=== PATIENT | male | born 1955 | race Caucasian/White ===

== ENCOUNTER 2020-11-09 09:17 | Outpatient (REF) | payer MEDICAID, SELFPAY ==
[2020-11-09 09:52] LABS: MANUAL DIFF FLAG NO
[2020-11-09 09:59] LABS: Basophils Percent Auto 0.4 % (0-2); Eosinophils Absolute Auto 0.1 X10*3/uL (0.0-0.4); Eosinophils Percent Auto 1.5 % (0-4); Hemoglobin 15.8 g/dl (14.0-18.0); Imm Gran Abs Auto 0.03 X10*3/uL (0.00-0.03); Imm Gran Pct Auto 0.3 % (0.0-0.4); Lymphocytes Absolute Auto 2.5 X10*3/uL (1.2-4.9); Lymphocytes Percent Auto 27.2 % (20-40); Mean Corpuscular HGB Conc 33.6 g/dl (31.0-36.0); Mean Corpuscular Hemoglobin 31.1 pg (27.0-33.0); Mean Corpuscular Volume 92.5 fL (80-98); Mean Platelet Volume 8.8 fL (9.4-12.4); Monocytes Absolute Auto 0.7 X10*3/uL (0.1-1.2); Monocytes Percent Auto 7.6 % (2-11); Neutrophils Absolute Auto 5.8 X10*3/uL (2.0-8.3); Platelet Count 313 X10*3/uL (160-400); Red Blood Count 5.08 X10*6/uL (4.60-5.80); Red Cell Distribution Width 12.8 % (11.0-16.0); White Blood Count 9.2 X10*3/uL (4.8-10.8)
[2020-11-09 10:24] LABS: Alanine Aminotransferase 35 U/L (0-40); Albumin Level 4.5 g/dL (3.5-5.0); Alkaline Phosphatase 129 U/L (39-117); Anion Gap 12 (12-20); Aspartate Amino Transferase 24 U/L (5-37); Bilirubin Total 0.9 mg/dL (0.0-1.0); Blood Urea Nitrogen 16 mg/dL (9-16); Calcium 9.9 mg/dL (8.4-10.2); Carbon Dioxide 27 mmol/L (22-29); Chloride 106 mmol/L (96-108); Estimated Glomerular Filt Rate 56; Glucose Fasting 100 mg/dL (60-99); Potassium 4.7 mmol/L (3.3-5.1); Sodium 140 mmol/L (135-145); Total Protein 7.2 g/dL (6.5-8.0)
[2020-11-09 10:37] LABS: Free T4 (Free Thyroxine) 0.99 ng/dL (0.71-1.85); Thyroid Stimulating Hormone 0.64 uIU/mL (0.32-4.0)
== END 2020-11-09 09:18 | disposition home or self-care (01) ==
LOC: HO.LAB 09:17
PROVIDERS: PCP Internal Medicine Medical Oncology; Visit Provider Internal Medicine Medical Oncology
DX: Z00.00 Encounter for general adult medical examination without abnormal findings (principal); E78.5 Hyperlipidemia, unspecified; I10 Essential (primary) hypertension
CPT/HCPCS: 36415; 80053; 84439; 84443; 85025

== ENCOUNTER → 2021-07-04 10:21 | Outpatient (BNVA) | payer MEDICARE, SELFPAY | PROVIDERS: PCP Internal Medicine Medical Oncology; Visit Provider Internal Medicine | DX: R07.2 Precordial pain (principal); I10 Essential (primary) hypertension; E78.5 Hyperlipidemia, unspecified | CPT/HCPCS: 99202 ==

== ENCOUNTER → 2021-07-24 08:58 | Outpatient (REF) | payer MEDICARE, SELFPAY ==
--- NOTE | 2021-07-24 09:10 | CA_ITS ---
Acquisition Time: 2021-07-24 10:31:22 Total Exercise Time: 00:06:06 Test Indications: HTN, CP Medications: SEE CHART Protocol: ERIK Max HR: 136 BPM 87% of Pred: 155 BPM Max BP: 154/068 mmHG Max Work Load: 7.1 METS Exercise stress test with exercise 6 min 6 sec of Erik protocol, without anginal symptoms, with isolated PVC, with normotensive response to exercise, without EKG changes meeting criteria for ischemia, there are J point depression with upsloping ST segments. At baseline there is borderline ST depression and T wave inversion lead III that improves with exercise and returns in recovery. Test reviewed with Dr Iniguez Referred By: Simón Madison Overread By: MARINA LAINEZ
== END ==
LOC: HO.CARD 08:58
PROVIDERS: Visit Provider Internal Medicine
DX: R07.2 Precordial pain (principal)
CPT/HCPCS: 93017

== ENCOUNTER → 2021-08-28 10:00 | Outpatient (REF) | payer MEDICARE, MEDICAID, SELFPAY ==
--- NOTE | 2021-08-28 10:04 | CA_ITS ---
Transthoracic Echocardiogram Patient (Last, First, Middle): Hoang Pereira M Gender: Male Date of : 1955 Age: 65 Procedure Date: 08/28/2021 Procedure Type: Transthoracic Echocardiogram Location: OP Height: 157.48 cm Weight: 67.13 kg BSA: 1.68 m2 Heart Rate: bpm BP: 130 / 82 mmHg Hyperion Analyst: RANDAL Referring MD: Simón Madison MD Mild Disabilities Teacher: Dwain Iniguez MD Symptoms: R07.2 - Precordial pain Study Quality: Good ECG Rhythm: Sinus Conclusions: - essentially normal study with mild fibrocalcific aortic valve barger Findings Left Ventricle Normal left ventricular size, thickness, and systolic function. The visually estimated ejection fraction is between 65-70%. Spectral Doppler is indicative of a normal filling pattern. Measured peak global longitudinal endocardial strain is -19.8% within normal limits Right Ventricle Normal right ventricular cavity size and systolic function. Atria Both atria are normal in size. There is no evidence of interatrial shunt. Aortic Valve There is mild calcification of the aortic valve. There is no aortic valve stenosis. There is no aortic valve regurgitation. Mitral Valve Normal mitral valve structure and function. There is trace mitral valve regurgitation. There is no mitral valve stenosis. Pulmonic Valve The pulmonic valve was not well visualized. Tricuspid Valve Likely normal tricuspid valve structure and function. There is trace tricuspid valve regurgitation. The right ventricular systolic pressure is normal. The right ventricular systolic pressure is 25 mmHg. Normal right atrial pressure. There is no evidence of pulmonary hypertension. Great Vessels All visible segments of the aorta are normal in size. The pulmonary artery was not well visualized. Venous The inferior vena cava is normal in size and collapses greater than 50% with inspiration. Pericardium/Pleural There is no evidence of pericardial effusion. Prior Study Comparison No prior study available for comparison. Measurements 2D Linear Measurements IVSd: 0.98 0.6-0.9/0.6-1.0 cm LVIDd: 4.38 3.9-5.3/4.2-5.9 cm LVIDd Index: 2.61 2.4-3.2/2.2-3.1 cm/m2 LVIDs: 2.03 2.0-3.6 cm LVPWd: 0.90 0.7-1.1 cm LA Diam: 3.10 2.7-3.8/3.0-4.0 cm LAIDs Index: 1.85 1.5-2.3 cm/m2 LV Mass: 167.74 67-162/88-224 g LV Mass Index: 99.84 43-95/49-115 g/m2 LVOT Diam: 1.90 3.0+(-)1.3 cm 2D Systolic Function EF 4C: 69.90 >55% EF 2C: 70.10 >55% EF BiP: 70.00 >55% Mitral Valve MV Pk E: 0.89 MV PK A: 0.78 MV Decel Time: 175.00 E/A: 1.20 E'Lateral: 10.30 E'Medial: 8.05 E/E' Med: 11.10 E/E' Lat: 8.70 PHT: 51.00 MVA PHT: 4.31 Decel Pleas[place]: 5.12 Aortic Valve AoV Pk Dom: 1.99 AoV Mn Dom: 1.36 AoV VTI: 0.41 AoV Pk Grad: 16.00 Aov Mn Grad: 9.00 ERVIN Cont.VTI: 2.37 LVOT LVOT Pk Dom: 1.67 LVOT Mn Dom: 1.10 LVOT VTI: 0.34 LVOT Pk Grad: 11.00 LVOT Mn Grad: 6.00 LVOT Diam: 1.90 LVOT Area: 2.84 Diastolic Function MV Pk E: 0.89 MV Pk A: 0.78 E/A: 1.20 E'Medial: 8.05 E/E' Med: 11.10 E' Laterial: 10.30 E/E' Lat: 8.70 Right Ventricle TAPSE (mm): 2.54 TVS' Dom: 13.80 Tricuspid Valve TR Pk Dom: 2.33 TR Pk Grad: 22.00 RA Press: 3.00 RVSP: 25.00 Great Vessels Aorta Sinus of Valsalva: 2.84 2.0-3.[address] Ridge: 2.56 1.7-3.4 cm Ao Asc: 2.90 2.1-3.4 cm Ao Arch: 2.60 Updated in Other Vendor System with Status of Final Dwain Iniguez MD electronically signed on 08/28/2021 1:47:28 PM with status of Final
== END ==
LOC: HO.CARD 10:00
PROVIDERS: Visit Provider Internal Medicine
DX: R07.2 Precordial pain (principal)
CPT/HCPCS: 93306

== ENCOUNTER → 2021-10-10 14:22 | Outpatient (BNVA) | payer MEDICARE, MEDICAID, SELFPAY | PROVIDERS: PCP Internal Medicine Medical Oncology; Referring Provider Nurse Practitioner Family; Visit Provider Nurse Practitioner Family | DX: R07.2 Precordial pain (principal); I10 Essential (primary) hypertension; E78.5 Hyperlipidemia, unspecified | CPT/HCPCS: 99212 ==

== ENCOUNTER → 2022-01-03 14:43 | Outpatient (BNVA) | payer MEDICARE, MEDICAID, SELFPAY | PROVIDERS: PCP Nurse Practitioner Family; Visit Provider Urology | DX: R33.9 Retention of urine, unspecified (principal); N32.0 Bladder-neck obstruction | CPT/HCPCS: 51798; 99202 ==

== ENCOUNTER 2022-06-24 10:08 | Outpatient (REF) | payer OTHER, SELFPAY ==
[2022-06-24 12:44] LABS: PSA,Total (Free>4and<10) 0.99 ng/mL (0.00-4.00)
== END 2022-06-24 10:09 | disposition home or self-care (01) ==
LOC: HO.LAB 10:08
PROVIDERS: PCP Internal Medicine Geriatric Medicine; Visit Provider Urology
DX: Z12.5 Encounter for screening for malignant neoplasm of prostate (principal); N13.8 Other obstructive and reflux uropathy; N40.1 Benign prostatic hyperplasia with lower urinary tract symptoms; R33.9 Retention of urine, unspecified
CPT/HCPCS: 36415; 84153

== ENCOUNTER → 2022-07-01 10:46 | Outpatient (BNVA) | payer OTHER, MEDICAID, SELFPAY | PROVIDERS: PCP Internal Medicine Geriatric Medicine; Visit Provider Urology | DX: N40.1 Benign prostatic hyperplasia with lower urinary tract symptoms (principal); N13.8 Other obstructive and reflux uropathy; R33.8 Other retention of urine; Z79.899 Other long term (current) drug therapy | CPT/HCPCS: 51798; 99212 ==

== ENCOUNTER 2023-02-02 17:58 | Emergency (ER) | payer OTHER, MEDICAID, SELFPAY ==
--- NOTE | 2023-02-02 18:00 | ECG_ITS ---
Test Reason : HYPERTENSION Blood Pressure : / mmHG Vent. Rate : 056 BPM Atrial Rate : 056 BPM P-R Int : 142 ms QRS Dur : 086 ms QT Int : 412 ms P-R-T Axes : 063 014 042 degrees QTc Int : 397 ms Sinus bradycardia Otherwise normal ECG No previous ECGs available Referred By: Bradly Smith Electronically Signed By:ALISSON AVILES
[2023-02-02 18:05] VITALS: BP 148/79; PULSE 55; RESP 14; TEMP 36.7; O2SAT 97; BMI 25.9
--- NOTE | 2023-02-02 18:05 | ED_ITS ---
HPI - General Adult General Chief complaint: Chest Pain Stated complaint: abnormal ekg/ labs? sent from [facility]. high bp Time Seen by Provider: 02/02/23 20:31 Source: patient and software team leader Mode of arrival: ambulatory History of Present Illness HPI narrative: 67-year-old male who comes in for evaluation headaches and when he has these he notices that he has high blood pressure. Patient states that he used to be on medication for high blood pressure but once he started the medication for his BPH his blood pressure was becoming too low and the blood pressure medication was removed. Patient denies any shortness of breath or chest pain but did have some palpitations this evening. He otherwise denies any GI or symptoms. Related Data Home Medications Medication Instructions Recorded Confirmed atorvastatin 40 mg tablet 40 mg PO DAILY 07/04/21 07/04/21 cetirizine 10 mg tablet 10 mg PO DAILY 07/04/21 07/04/21 gabapentin 300 mg capsule 300 mg PO TID 07/04/21 07/04/21 hydrocortisone 2.5 % topical cream appl topical BID 07/04/21 07/04/21 omeprazole 20 mg capsule,delayed 20 mg PO BID 07/04/21 07/04/21 release amlodipine 10 mg tablet 10 mg PO DAILY 10/10/21 10/10/21 aspirin 325 mg tablet 325 mg PO BID 10/10/21 10/10/21 celecoxib 200 mg capsule 200 mg PO DAILY 10/10/21 10/10/21 oxycodone 5 mg tablet mg PO 10/10/21 10/10/21 amlodipine 5 mg tablet 5 mg PO DAILY 01/03/22 meloxicam 15 mg tablet 15 mg PO DAILY 01/03/22 venlafaxine 37.5 mg 37.5 mg PO DAILY 01/03/22 capsule,extended release 24 hr fluoxetine 20 mg capsule 20 mg PO DAILY 07/01/22 gabapentin 600 mg tablet 600 mg PO TID 07/01/22 lorazepam 0.5 mg tablet 0.5 mg PO BID PRN 07/01/22 trazodone 50 mg tablet 50 mg PO BEDTIME PRN 07/01/22 Previous Rx's Medication Instructions Recorded finasteride 5 mg tablet 5 mg PO DAILY 90 days #90 tabs 07/01/22 terazosin 10 mg capsule 10 mg PO BEDTIME 90 days #90 caps 07/01/22 Allergies Allergy/AdvReac Type Severity Reaction Status Date / Time Penicillins Allergy Intermediate rash Verified 07/01/22 10:54 Review of Systems Review of Systems: Pertinent positives and negatives as stated in [facility] Past Medical History Source: nursing notes reviewed Medical History Essential hypertension Other and unspecified hyperlipidemia Surgical History History of shoulder surgery Family History Family History Father No problems noted. Mother CVD (cardiovascular disease) Social History Social History Household Members: Family Housing: House Alcohol intake: never Patient Tobacco Use Status: Never used Tobacco Advance Directives: No Advance Directives Information Provided: Yes Physical Exam ED Vital Signs: Vital Signs - 24 hr 02/02/23 18:05 02/02/23 20:20 Temperature 98.0 F 97.7 F Pulse Rate 55 60 Respiratory Rate 14 18 Blood Pressure 148/79 H 152/87 H Pulse Oximetry 97 97 Oxygen Delivery Method Room Air Room Air BMI result Body Mass Index 25.9 VITAL SIGNS: Reviewed. GENERAL: Well developed, well nourished, in no acute distress. HEAD: Normocephalic/atraumatic EYES: PERRLA, EOMI LUNGS: Normal breath sounds. No adventitious sounds or accessory muscle use. SpO2<97> CARDIOVASCULAR: Regular rate and rhythm without noted murmurs, no JVD or lower extremity edema. ABDOMEN: Soft, non-tender, non-distended with bowel sounds. MUSCULOSKELETAL: No tenderness, deformities, or effusions noted on gross i nspection. EXTREMITIES: No cyanosis, clubbing or edema. SKIN: Inspection of the skin reveals no rashes NEUROLOGIC: Alert and oriented x 4. Strength and sensation to light touch were grossly intact x 4. Course Course Course Narrative: 67 year old male presents from Dr. Mitchell's office after an abnormal EKG. He is also having substernal nonradiating chest pain going on for weeks. He has been having hypertension and headaches going on for months. Patient reports that the blood pressure fluctuates with the onset of the headaches. Plan- EKG Medical Decision Making Medical Decision Making MDM Narrative: 67-year-old male with history and clinical presentation, DDX: Hypertension, patient is otherwise nonfocal and no symptoms to suggest neurologic dysfunction, patient is afebrile and I doubt any underlying infection, no shortness of breath or chest pain, no GI or symptoms. I reviewed all investigations and hematologic indices are grossly within normal limits, there is no leukocytosis or left shift and no anemia or thrombocytopenia. Chemistry indices are grossly within normal limits there is no electrolyte or liver enzyme abnormalities other than a chronically stable alkaline phosphatase, there is no BRANDON and troponin is undetectable without acute EKG changes in BMP is within normal limits. My interpretation is that patient is experiencing some episodes of high blood pressure that should be further evaluated by his primary care provider. There is no evidence of end-organ damage and I do suspect that the episode he described of low blood pressure may be secondary to his BPH medication. I did instruct the patient to begin taking his prostate medication at night prior to b ed so that if it does cause low blood pressure he will be less likely to experience any symptoms. Differential Diagnosis Differential Diagnoses: The differential diagnosis associated with the presentation includes Please see the discussion above Admission/Observation Consideration of admission/observation: Escalation of care including admission/observation considered Please see the discussion above Lab Data [facility] Lab Attestation statement: I reviewed the patient's lab results. Please see the discussion above 02/02/23 18:55 02/02/23 18:55 Labs: Lab Results 02/02/23 02/02/23 02/02/23 Range/Units 18:55 18:55 18:55 WBC 8.3 (4.8-10.8) X10*3/uL RBC 5.05 (4.60-5.80) X10*6/uL Hgb 15.7 (14.0-18.0) g/dl Hct 47.2 (42.0-52.0) % MCV 93.5 (80.0-98.0) fL MCH 31.1 (27.0-33.0) pg MCHC 33.3 (31.0-36.0) g/dl RDW 13.2 (11.0-16.0) % Plt Count 261 (160-400) X10*3/uL MPV 9.6 (9.4-12.4) fL Immature Gran % (Auto) 0.2 (0.0-0.4) % Neut % (Auto) 64.8 (45-73) % Lymph % (Auto) 23.7 (20-40) % [place] % (Auto) 7.4 (2-11) % Eos % (Auto) 3.3 (0-4) % Baso % (Auto) 0.6 (0-2) % Lymph # (Auto) 2.0 (1.2-4.9) X10*3/uL [place] # (Auto) 0.6 (0.1-1.2) X10*3/uL Eos # (Auto) 0.3 (0.0-0.4) X10*3/uL Baso # (Auto) 0.1 (0.0-0.2) X10*3/uL Abs Immat Gran (auto) 0.02 (0.00-0.03) X10*3/uL Absolute Neuts (auto) 5.4 (2.0-8.3) x10*3/uL Absolute Nucleated RBC 0.000 (0.0-0.012) X10*3/uL Nucleated RBC % (auto) 0.0 (0.0-0.2) /100WBC Sodium 140 (135-145) mmol/L Potassium 4.6 (3.3-5.1) mmol/L Chloride 107 (96-108) mmol/L Carbon Dioxide 25 (22-29) mmol/L Anion Gap 13 (12-20) BUN 20 H (9-16) mg/dL Creatinine 1.05 (0.5-1.4) mg/dL Estim Creat Clear Calc 54.9 Estimated GFR > 60 Random Glucose 91 (60-115) mg/dL Calcium 9.8 (8.4-10.2) mg/dL Magnesium 2.2 (1.6-2.6) mg/dL Total Bilirubin 0.9 (0.0-1.0) mg/dL AST 20 (5-37) U/L ALT 21 (0-40) U/L Alkaline Phosphatase 142 H (39-117) U/L Troponin I High Sens < 2.7 (<3.5-35.0) ng/L B-Natriuretic Peptide (<100) pg/mL Total Protein 7.6 (6.5-8.0) g/dL Albumin 4.5 (3.5-5.0) g/dL 02/02/23 Range/Units 18:55 WBC (4.8-10.8) X10*3/uL RBC (4.60-5.80) X10*6/uL Hgb (14.0-18.0) g/dl Hct (42.0-52.0) % MCV (80.0-98.0) fL MCH (27.0-33.0) pg MCHC (31.0-36.0) g/dl RDW (11.0-16.0) % Plt Count (160-400) X10*3/uL MPV (9.4-12.4) fL Immature Gran % (Auto) (0.0-0.4) % Neut % (Auto) (45-73) % Lymph % (Auto) (20-40) % [place] % (Auto) (2-11) % Eos % (Auto) (0-4) % Baso % (Auto) (0-2) % Lymph # (Auto) (1.2-4.9) X10*3/uL [place] # (Auto) (0.1-1.2) X10*3/uL Eos # (Auto) (0.0-0.4) X10*3/uL Baso # (Auto) (0.0-0.2) X10*3/uL Abs Immat Gran (auto) (0.00-0.03) X10*3/uL Absolute Neuts (auto) (2.0-8.3) x10*3/uL Absolute Nucleated RBC (0.0-0.012) X10*3/uL Nucleated RBC % (auto) (0.0-0.2) /100WBC Sodium (135-145) mmol/L Potassium (3.3-5.1) mmol/L Chloride (96-108) mmol/L Carbon Dioxide (22-29) mmol/L Anion Gap (12-20) BUN (9-16) mg/dL Creatinine (0.5-1.4) mg/dL Estim Creat Clear Calc Estimated GFR Random Glucose (60-115) mg/dL Calcium (8.4-10.2) mg/dL Magnesium (1.6-2.6) mg/dL Total Bilirubin (0.0-1.0) mg/dL AST (5-37) U/L ALT (0-40) U/L Alkaline Phosphatase (39-117) U/L Troponin I High Sens (<3.5-35.0) ng/L B-Natriuretic Peptide 72 (<100) pg/mL Total Protein (6.5-8.0) g/dL Albumin (3.5-5.0) g/dL Independent Interpretation I performed an independent interpretation of an: EKG Interpretation: Sinus bradycardia, HR -56, no STEMI, IN/QRS/QTC is within normal limits External Record Review External record reviewed: Outpatient record, Prior outpatient labs and Prior ou tpatient radiology Chronic Conditions Patient?s care impacted by: Hypertension Discharge Plan Discharge Clinical Impression: Medication side effect, Headache Patient Disposition: Home, Self-Care Instructions: Adverse Drug Reaction (ED), General Headache (ED) Additional Instructions: 1. Le recomiendo que comience a david eric medicamento para la pr?stata por la noche antes de acostarse; sin embargo, si puede levantarse a mitad de la noche, tenga cuidado y lev?ntese lentamente para no experimentar mareos. 2. Contin?e controlando eric presi?n arterial, t?kyle dos veces al d?a, por la ma?gael antes de comenzar el d?a y luego por la noche antes de acostarse. 3. Patrick un seguimiento con eric m?dico de atenci?n primaria llamando al consultorio a primera hora de la ma?gael para programar victoriano hazel para victoriano reevaluaci?n y un mayor manejo ambulatorio. Regrese a la peter de emergencias si los s?ntomas empeoran. 1. I recommend that you begin taking your prostate medication in the evening prior to going to bed, however if you could up in the middle the night exercise caution and slowly get up so that you do not experience any dizziness. 2. Continue to track your blood pressure is, take them twice a day, in the morning prior to starting your day and then in the evening prior to bed. 3. Please follow-up with your primary care doctor by calling the office 1st thing in the morning to set up an appointment for re-evaluation and further outpatient management. Return to the ER for any worsening symptoms. Prescriptions: No Action amlodipine 10 mg tablet 10 mg PO DAILY celecoxib 200 mg capsule 200 mg PO DAILY aspirin 325 mg tablet 325 mg PO BID oxycodone 5 mg tablet PO atorvastatin 40 mg tablet 40 mg PO DAILY gabapentin 300 mg capsule 300 mg PO TID omeprazole 20 mg capsule,delayed release(DR/EC) 20 mg PO BID hydrocortisone 2.5 % cream topical BID cetirizine 10 mg tablet 10 mg PO DAILY venlafaxine 37.5 mg capsule,extended release 24hr 37.5 mg PO DAILY amlodipine 5 mg tablet 5 mg PO DAILY meloxicam 15 mg tablet 15 mg PO DAILY lorazepam 0.5 mg tablet 0.5 mg PO BID PRN fluoxetine 20 mg capsule 20 mg PO DAILY trazodone 50 mg tablet 50 mg PO BEDTIME PRN gabapentin 600 mg tablet 600 mg PO TID finasteride 5 mg tablet 5 mg PO DAILY 90 Days Qty: 90 3RF terazosin 10 mg capsule 10 mg PO BEDTIME 90 Days Qty: 90 3RF Referrals: [facility] [Primary Care Provider] - Print Language: [place]
[2023-02-02 19:01] LABS: MANUAL DIFF FLAG NO
[2023-02-02 19:19] LABS: Alanine Aminotransferase 21 U/L (0-40); Albumin Level 4.5 g/dL (3.5-5.0); Alkaline Phosphatase 142 U/L (39-117); Anion Gap 13 (12-20); Aspartate Amino Transferase 20 U/L (5-37); Bilirubin Total 0.9 mg/dL (0.0-1.0); Blood Urea Nitrogen 20 mg/dL (9-16); Calcium 9.8 mg/dL (8.4-10.2); Carbon Dioxide 25 mmol/L (22-29); Chloride 107 mmol/L (96-108); Creatinine Clr Calc Pharmacy 54.9; Estimated Glomerular Filt Rate > 60; Glucose Random 91 mg/dL (60-115); Magnesium 2.2 mg/dL (1.6-2.6); Potassium 4.6 mmol/L (3.3-5.1); Sodium 140 mmol/L (135-145); Total Protein 7.6 g/dL (6.5-8.0)
[2023-02-02 19:24] LABS: Basophils Absolute Auto 0.1 X10*3/uL (0.0-0.2); Basophils Percent Auto 0.6 % (0-2); Eosinophils Absolute Auto 0.3 X10*3/uL (0.0-0.4); Eosinophils Percent Auto 3.3 % (0-4); Hematocrit 47.2 % (42.0-52.0); Hemoglobin 15.7 g/dl (14.0-18.0); Imm Gran Abs Auto 0.02 X10*3/uL (0.00-0.03); Imm Gran Pct Auto 0.2 % (0.0-0.4); Lymphocytes Percent Auto 23.7 % (20-40); Mean Corpuscular HGB Conc 33.3 g/dl (31.0-36.0); Mean Corpuscular Hemoglobin 31.1 pg (27.0-33.0); Mean Corpuscular Volume 93.5 fL (80.0-98.0); Mean Platelet Volume 9.6 fL (9.4-12.4); Monocytes Absolute Auto 0.6 X10*3/uL (0.1-1.2); Monocytes Percent Auto 7.4 % (2-11); Neutrophils Absolute Auto 5.4 x10*3/uL (2.0-8.3); Neutrophils Percent Auto 64.8 % (45-73); Platelet Count 261 X10*3/uL (160-400); Red Blood Count 5.05 X10*6/uL (4.60-5.80); Red Cell Distribution Width 13.2 % (11.0-16.0); White Blood Count 8.3 X10*3/uL (4.8-10.8)
[2023-02-02 19:25] LABS: B Type Natriuretic Peptide 72 pg/mL (<100)
[2023-02-02 19:27] LABS: Troponin-I High Sensitivity < 2.7 ng/L (<3.5-35.0)
[2023-02-02 20:20] VITALS: BP 152/87; PULSE 60; RESP 18; TEMP 36.5; O2SAT 97
== END 2023-02-02 23:05 | disposition home or self-care (01) ==
PROVIDERS: Physician Assistant; Emergency Provider Student in an Organized Health Care Education/Training Program
DX: R07.89 Other chest pain (principal); R51.9 Headache, unspecified; R06.02 Shortness of breath; Z79.899 Other long term (current) drug therapy
CPT/HCPCS: 36415; 80053; 83735; 83880; 84484; 85025; 93005; 99283

== ENCOUNTER 2023-02-16 13:38 | Emergency (ER) | payer OTHER, MEDICAID, SELFPAY ==
--- NOTE | ~2023-02-16 | US_ITS ---
EXAMINATION: US ABDOMEN LIMITED CLINICAL INFORMATION: Left inguinal pain. COMPARISON: None available. TECHNIQUE: Real-time imaging of the left inguinal canal FINDINGS: Multiple benign-appearing lymph nodes are seen in the left inguinal area, the largest is 1.6 x 0.5 x 1.4 cm. A hernia is seen at the area of pain indicated by the patient/left inguinal area measuring up to 1.2 cm US/US abdomen limited IMPRESSION: 1. Left inguinal hernia. 2. Benign-appearing lymph nodes in the left inguinal area.
[2023-02-16 14:00] VITALS: BP 118/67; PULSE 58; RESP 18; TEMP 36.9; O2SAT 97; BMI 26.2
--- NOTE | 2023-02-16 14:01 | ED.ABDPAIN ---
HPI - Abdominal Pain General Chief Complaint: Abdominal Pain Stated Complaint: groin pain Time Seen by Provider: 02/16/23 17:30 Source: patient Mode of arrival: ambulatory Limitations: no limitations History of Present Illness HPI narrative: 67-year-old male presents with left groin pain. Pain is moderate. Was more severe yesterday. Radiates the left testicle. Pain is intermittent. He describes as an achy pain. He does have some urinary frequency and urgency and nighttime urination but denies any painful urination. Denies any blood in his urine. Denies any abdominal distension, nausea, vomiting, failure to pass stool or flatus. He has not had any previous abdominal surgeries. He has denied any masses in his groin or scrotal area. Symptoms are not clearly relieved or exacerbated by anything at this time Related Data Home Medications Medication Instructions Recorded Confirmed atorvastatin 40 mg tablet 40 mg PO DAILY 07/04/21 07/04/21 cetirizine 10 mg tablet 10 mg PO DAILY 07/04/21 07/04/21 gabapentin 300 mg capsule 300 mg PO TID 07/04/21 07/04/21 hydrocortisone 2.5 % topical cream appl topical BID 07/04/21 07/04/21 omeprazole 20 mg capsule,delayed 20 mg PO BID 07/04/21 07/04/21 release amlodipine 10 mg tablet 10 mg PO DAILY 10/10/21 10/10/21 aspirin 325 mg tablet 325 mg PO BID 10/10/21 10/10/21 celecoxib 200 mg capsule 200 mg PO DAILY 10/10/21 10/10/21 oxycodone 5 mg tablet mg PO 10/10/21 10/10/21 amlodipine 5 mg tablet 5 mg PO DAILY 01/03/22 meloxicam 15 mg tablet 15 mg PO DAILY 01/03/22 venlafaxine 37.5 mg 37.5 mg PO DAILY 01/03/22 capsule,extended release 24 hr fluoxetine 20 mg capsule 20 mg PO DAILY 07/01/22 gabapentin 600 mg tablet 600 mg PO TID 07/01/22 lorazepam 0.5 mg tablet 0.5 mg PO BID PRN 07/01/22 trazodone 50 mg tablet 50 mg PO BEDTIME PRN 07/01/22 Previous Rx's Medication Instructions Recorded finasteride 5 mg tablet 5 mg PO DAILY 90 days #90 tabs 07/01/22 terazosin 10 mg capsule 10 mg PO BEDTIME 90 days #90 caps 07/01/22 Allergies Allergy/AdvReac Type Severity Reaction Status Date / Time Penicillins Allergy Intermediate rash Verified 07/01/22 10:54 Review of Systems Review of Systems CONSTITUTIONAL: Denies weight loss, fever and chills. HEENT: Denies changes in vision and hearing. RESPIRATORY: Denies SOB and cough. CV: Denies palpitations no CP. GI: Denies abdominal pain, nausea, vomiting and diarrhea. : Denies dysuria and urinary frequency. MSK: + myalgia and joint pain. SKIN: Denies rash and pruritus. NEUROLOGICAL: Denies headache and syncope. PSYCHIATRIC: Denies recent changes in mood. Denies anxiety and depression. All other ROS are negative unless in HPI PMFSH Past Medical History Medical History Essential hypertension Other and unspecified hyperlipidemia Surgical History History of shoulder surgery Family History Family History Father No problems noted. Mother CVD (cardiovascular disease) Social History Social History Household Members: Family Housing: House Alcohol intake: never Patient Tobacco Use Status: Never used Tobacco Advance Directives: No Advance Directives Information Provided: Yes Physical Exam ED Vital Signs: Vital Signs - 24 hr 02/16/23 14:00 02/16/23 16:43 Temperature 98.4 F 97.7 F Pulse Rate 58 52 Respiratory Rate 18 15 Blood Pressure 118/67 150/81 H Pulse Oximetry 97 99 Oxygen Delivery Method Room Air Room Air BMI result Body Mass Index 26.2 GEN: Well developed, no acute distress, alert, oriented HEENT: Normocephalic, atraumatic, normal external ears, nose appears normal, no oropharyngeal edema or exudates Eyes: Normal to appearance Neck: Supple, no lymphadenopathy Respiratory: Talks in complete sentences, no respiratory distress, clear to auscultation bilaterally Cardiovascular: Regular rate and rhythm, no murmurs rubs or gallops Abdomen: Soft, nontender, nondistended, no guarding, no rebound Back: No CVA tenderness Extremities: No clubbing cyanosis or edema Neurologic: No focal neurologic deficits, cranial nerves 2-12 intact, strength is 5/5 bilaterally Skin: No rash Course Course Course Narrative: RME - 67 yo Marshallese speaking male presents to the ER for evaluation of HTN, HLD, urinary retention w/ bladder outlet obstruction who presents to the ER for evaluation of suprapubic pain and bilateral testicular pain. Urinary stream is slow and he has having increased frequency. Plan: labs, UA, PVR, U/S assess for hernia Reevaluation(s) Reevaluation #1: Patient has left inguinal hernia. There is no evidence UTI. Most likely his urinary symptoms are prostatic. Will refer patient to general surgery. Discussed instructions of incarceration, strangulation and bowel obstruction Time: 18:12 Medical Decision Making Medical Decision Making [facility] Narrative: Patient presents with left groin pain. Differential diagnosis includes hernia, torsion, UTI, strain, sprain. Plan will be to obtain an ultrasound to rule out the differential diagnoses. Patient is comfortable this time. There is no evidence of bowel obstruction, pyelonephritis. Will obtain a urinalysis to rule UTI as well. Differential Diagnosis Differential Diagnoses: The differential diagnosis associated with the presentation includes (See above) Admission/Observation Consideration of admission/observation: Escalation of care including admission/observation considered Lab Data [facility] Lab Attestation statement: I reviewed the patient's lab results. 02/16/23 14:10 02/16/23 14:10 Labs: Lab Results 02/16/23 02/16/23 Range/Units 14:10 16:28 WBC 7.8 (4.8-10.8) X10*3/uL RBC 4.93 (4.60-5.80) X10*6/uL Hgb 15.3 (14.0-18.0) g/dl Hct 45.0 (42.0-52.0) % MCV 91.3 (80.0-98.0) fL MCH 31.0 (27.0-33.0) pg MCHC 34.0 (31.0-36.0) g/dl RDW 13.1 (11.0-16.0) % Plt Count 243 (160-400) X10*3/uL MPV 9.0 L (9.4-12.4) fL Immature Gran % (Auto) 0.3 (0.0-0.4) % Neut % (Auto) 65.0 (45-73) % Lymph % (Auto) 23.1 (20-40) % [place] % (Auto) 8.7 (2-11) % Eos % (Auto) 2.4 (0-4) % Baso % (Auto) 0.5 (0-2) % Lymph # (Auto) 1.8 (1.2-4.9) X10*3/uL [place] # (Auto) 0.7 (0.1-1.2) X10*3/uL Eos # (Auto) 0.2 (0.0-0.4) X10*3/uL Baso # (Auto) 0.0 (0.0-0.2) X10*3/uL Abs Immat Gran (auto) 0.02 (0.00-0.03) X10*3/uL Absolute Neuts (auto) 5.1 (2.0-8.3) x10*3/uL Absolute Nucleated RBC 0.000 (0.0-0.012) X10*3/uL Nucleated RBC % (auto) 0.0 (0.0-0.2) /100WBC Sodium 140 (135-145) mmol/L Potassium 4.0 (3.3-5.1) mmol/L Chloride 108 (96-108) mmol/L Carbon Dioxide 26 (22-29) mmol/L Anion Gap 10 L (12-20) BUN 19 H (9-16) mg/dL Creatinine 1.47 H (0.5-1.4) mg/dL Estim Creat Clear Calc 39.2 Estimated GFR 48 Random Glucose 92 (60-115) mg/dL Calcium 9.9 (8.4-10.2) mg/dL Magnesium 2.2 (1.6-2.6) mg/dL Total Bilirubin 1.0 (0.0-1.0) mg/dL Direct Bilirubin 0.3 (0.0-0.5) mg/dL AST 20 (5-37) U/L ALT 16 (0-40) U/L Alkaline Phosphatase 127 H (39-117) U/L Total Protein 7.1 (6.5-8.0) g/dL Albumin 4.2 (3.5-5.0) g/dL Urine Color Yellow Urine Appearance Clear Urine pH 6.0 (5.0-9.0) Ur Specific [place] 1.010 (1.005-1.025) Urine Protein Negative (Neg-Trace) mg/dL Urine Glucose (UA) Negative (Negative) mg/dL Urine Ketones Negative (Negative) mg/dL Urine Blood Negative (Negative) Urine Nitrite Negative (Negative) Ur Leukocyte Esterase Negative (Negative) Independent Interpretation I performed an independent interpretation of an: Ultrasound (Hernia) Radiology Impression Discussion of test interpretation with radiology: I have reviewed the radiologist's reading. Radiologist Impression: US/US abdomen limited IMPRESSION: 1. Left inguinal hernia. 2. Benign-appearing lymph nodes in the left inguinal area. Dictated By: Yvonne Corral MD Signed By: <Electronically signed by Yvonne Corral MD in OV> 02/16/23 1613 Prescription Management I considered prescription management with: Pain Medication Chronic Conditions Patient?s care impacted by: Hypertension Discharge Plan Discharge Clinical Impression: Left inguinal hernia Patient Disposition: Home, Self-Care Instructions: Inguinal Hernia (ED) Prescriptions: No Action amlodipine 10 mg tablet 10 mg PO DAILY celecoxib 200 mg capsule 200 mg PO DAILY aspirin 325 mg tablet 325 mg PO BID oxycodone 5 mg tablet PO atorvastatin 40 mg tablet 40 mg PO DAILY gabapentin 300 mg capsule 300 mg PO TID omeprazole 20 mg capsule,delayed release(DR/EC) 20 mg PO BID hydrocortisone 2.5 % cream topical BID cetirizine 10 mg tablet 10 mg PO DAILY venlafaxine 37.5 mg capsule,extended release 24hr 37.5 mg PO DAILY amlodipine 5 mg tablet 5 mg PO DAILY meloxicam 15 mg tablet 15 mg PO DAILY lorazepam 0.5 mg tablet 0.5 mg PO BID PRN fluoxetine 20 mg capsule 20 mg PO DAILY trazodone 50 mg tablet 50 mg PO BEDTIME PRN gabapentin 600 mg tablet 600 mg PO TID finasteride 5 mg tablet 5 mg PO DAILY 90 Days Qty: 90 3RF terazosin 10 mg capsule 10 mg PO BEDTIME 90 Days Qty: 90 3RF Referrals: Domenic Ogden MD [Physician] - Print Language: Marshallese
[2023-02-16 14:13] LABS: MANUAL DIFF FLAG NO
[2023-02-16 14:19] LABS: Basophils Percent Auto 0.5 % (0-2); Eosinophils Absolute Auto 0.2 X10*3/uL (0.0-0.4); Eosinophils Percent Auto 2.4 % (0-4); Hemoglobin 15.3 g/dl (14.0-18.0); Imm Gran Abs Auto 0.02 X10*3/uL (0.00-0.03); Imm Gran Pct Auto 0.3 % (0.0-0.4); Lymphocytes Absolute Auto 1.8 X10*3/uL (1.2-4.9); Lymphocytes Percent Auto 23.1 % (20-40); Mean Corpuscular Volume 91.3 fL (80.0-98.0); Monocytes Absolute Auto 0.7 X10*3/uL (0.1-1.2); Monocytes Percent Auto 8.7 % (2-11); Neutrophils Absolute Auto 5.1 x10*3/uL (2.0-8.3); Platelet Count 243 X10*3/uL (160-400); Red Blood Count 4.93 X10*6/uL (4.60-5.80); Red Cell Distribution Width 13.1 % (11.0-16.0); White Blood Count 7.8 X10*3/uL (4.8-10.8)
[2023-02-16 14:29] LABS: Alanine Aminotransferase 16 U/L (0-40); Albumin Level 4.2 g/dL (3.5-5.0); Alkaline Phosphatase 127 U/L (39-117); Anion Gap 10 (12-20); Aspartate Amino Transferase 20 U/L (5-37); Bilirubin Direct 0.3 mg/dL (0.0-0.5); Blood Urea Nitrogen 19 mg/dL (9-16); Calcium 9.9 mg/dL (8.4-10.2); Carbon Dioxide 26 mmol/L (22-29); Chloride 108 mmol/L (96-108); Creatinine Clr Calc Pharmacy 39.2; Estimated Glomerular Filt Rate 48; Glucose Random 92 mg/dL (60-115); Magnesium 2.2 mg/dL (1.6-2.6); Sodium 140 mmol/L (135-145); Total Protein 7.1 g/dL (6.5-8.0)
[2023-02-16 16:43] VITALS: BP 150/81; PULSE 52; RESP 15; TEMP 36.5; O2SAT 99
[2023-02-16 16:43] LABS: Appearance Urine Clear; Color Urine Yellow; Glucose Urine UA Negative (Negative); Leukocyte Esterase Urine Negative (Negative); Nitrite Urine Negative (Negative); Urine Blood Negative (Negative); Urine Ketones Negative (Negative); Urine Protein Negative (Neg-Trace)
--- NOTE | 2023-02-16 16:43 | MHC.EDTECH ---
THIS PCT JUST ASSUMED CARE OF PT ,VITALS SIGN TAKEN ,PT RESTING QUIETLY IN BED .
[2023-02-16 18:00] VITALS: BP 136/84; PULSE 54; RESP 16; TEMP 36.8; O2SAT 97
== END 2023-02-16 18:51 | disposition home or self-care (01) ==
PROVIDERS: Physician Assistant; Emergency Provider Emergency Medicine
DX: K40.90 Unilateral inguinal hernia, without obstruction or gangrene, not specified as recurrent (principal); R10.32 Left lower quadrant pain; N50.812 Left testicular pain; R33.9 Retention of urine, unspecified; Z79.899 Other long term (current) drug therapy
CPT/HCPCS: 36415; 51798; 76705; 80048; 80076; 81003; 83735; 85025; 99283; 99284

== ENCOUNTER 2023-02-23 10:30 | Outpatient (AMB) | payer OTHER, MEDICAID, SELFPAY ==
[2023-02-23 10:33] VITALS: BP 122/68; PULSE 63; BMI 25.5
--- NOTE | 2023-02-23 10:33 | A.OFFVIS_ITS ---
Intake Vital Signs 02/23/23 10:33 Height 5 ft 3 in Weight 144 lb BMI 25.5 BP 122/68 Blood Pressure Location Rt brachial Position Sitting Pulse 63 Intake Visit Reasons: Lt inguinal hernia-ER Intake Note: Patient here f/u from ER visit on 02-16-23. C/o lower lt lower abd pain that started about 3 wks. Currently taking ibuprofen and tylenol. Was told per abd US has LIH. Alternative Dispute Resolution Mediator Required: No Accompanied by: Spouse Allergies Penicillins Allergy (Intermediate, Verified 02/23/23 10:39) rash latex Allergy (Mild, Verified 02/23/23 10:39) rash Medication List - Last Reconciled 02/23/23 by Broderick Rainey MD atorvastatin 40 mg PO DAILY celecoxib 200 mg PO DAILY cetirizine 10 mg PO DAILY finasteride 5 mg PO DAILY 90 days fluoxetine 20 mg PO DAILY gabapentin 600 mg PO TID hydrocortisone 2.5% appl topical BID lorazepam 0.5 mg PO BID PRN meloxicam 15 mg PO DAILY omeprazole 20 mg PO BID oxycodone mg PO terazosin 10 mg PO BEDTIME 90 days trazodone 50 mg PO BEDTIME PRN HPI HPI Comments History of Present Illness Details Patient presents with his for evaluation of left groin pain. His several weeks time of left groin pain and swelling. Because of progression symptoms, presents here for further evaluation. Patient otherwise tolerates a diet as regular bowel habits. He does not to overly strenuous activities at this point his life. 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 Mother CVD (cardiovascular disease) Social History Household Members: Family Housing: House Alcohol intake: never Patient Tobacco Use Status: Never used Tobacco Physical Exam Vital Signs: Last Vital Signs Pulse 63 02/23/23 10:33 BP 122/68 02/23/23 10:33 BMI result Body Mass Index 25.5 Chest Other: Chest breath sounds bilaterally, HS 1 2 GI Other: Patient was examined standing with Valsalva. Abdomen soft benign. Right groin negative. Genitalia within normal limits. Small but symptomatic left inguinal hernia. Assessment & Plan Assessment & Plan (1) Inguinal hernia: Code(s): K40.90 - Unilateral inguinal hernia, without obstruction or gangrene, not specified as recurrent Plan Risks, benefits, alternatives of hernia repair open technique with mesh placement reviewed with the patient and included but not limited to bleeding, infection, recurrence, numbness, pain, scarring the patient wishes to proceed. All questions were answered. Arrangements were made for this. Coding Level of Care Code New Pt Level 5 (07215) Diagnoses Inguinal hernia K40.90
== END 2023-02-23 10:53 | disposition home or self-care (01) ==
PROVIDERS: Visit Provider Surgery
DX: K40.90 Unilateral inguinal hernia, without obstruction or gangrene, not specified as recurrent (principal)
CPT/HCPCS: 99214

== ENCOUNTER → 2023-02-23 10:30 | Outpatient (BNVA) | payer OTHER, MEDICAID, SELFPAY | PROVIDERS: Visit Provider Surgery ==

== ENCOUNTER 2023-03-26 06:02 | Day surgery (SDC) | payer OTHER, MEDICAID, SELFPAY ==
[2023-03-23 15:48] VITALS: BMI 25.5
[2023-03-23 16:48] VITALS: BMI 25.9
--- NOTE | 2023-03-25 09:00 | P.CONAN_ITS ---
HPI - Anesthesia Eval Consult details Narrative: 67yo M for Left Open Hernia Repair Inguinal PMFSH Active Problems Active Problems: All Active Problems (Updated 03/24/23 @ 10:14 by Lauren Zarate RN) Inguinal hernia (Acute) Urinary retention with incomplete bladder emptying (Acute) Bladder outlet obstruction (Acute) Precordial chest pain (Acute) Other and unspecified hyperlipidemia (Acute) Essential hypertension (Acute) Past Medical History Medical History (Updated 03/24/23 @ 10:14 by Lauren Zarate RN) Depression Anxiety History of Helicobacter pylori infection BPPV (benign paroxysmal positional vertigo) Pre-diabetes BPH (benign prostatic hyperplasia) Asthma Elevated cholesterol 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 Mother CVD (cardiovascular disease) Surgical History Surgical History (Updated 03/23/23 @ 16:51 by Lauren Zarate RN) History of total left knee replacement History of back surgery (~03/13/21) History of shoulder surgery Social History Social History (Updated 03/23/23 @ 16:48 by Lauren Zarate RN) Household Members: Spouse and Family Housing: House Are you a primary pulmonary care nurse to a significant other at home: No Do you presently have visiting nurse or other home services: No Alcohol intake: never Patient Tobacco Use Status: Never used Tobacco Use of substances other than those prescribed or required for medical reasons: No Have you been hit, kicked, punched, or otherwise hurt by someone within the past year? If so, by whom?: No Are you DNR?: No Advance Directives: No Advance Directives Information Provided: Yes Advance Directives on File: No Recently lost weight without trying: No Nutrition Risks: No Nutritional Risk Meds Allergies Allergy/AdvReac Type Severity Reaction Status Date / Time Penicillins Allergy Intermediate rash Verified 03/23/23 16:47 latex Allergy Mild rash Verified 03/23/23 16:47 Home Medications Medication Instructions Recorded Confirmed Last Taken Type atorvastatin 40 mg tablet 40 mg PO DAILY 07/04/21 03/23/23 Unknown History cetirizine 10 mg tablet 10 mg PO DAILY 07/04/21 07/04/21 Unknown History hydrocortisone 2.5 % topical cream appl topical BID 07/04/21 07/04/21 Unknown History omeprazole 20 mg capsule,delayed 20 mg PO BID PRN Gastric Reflux 07/04/21 03/23/23 Unknown History release celecoxib 200 mg capsule 200 mg PO DAILY 10/10/21 10/10/21 Unknown History oxycodone 5 mg tablet mg PO 10/10/21 10/10/21 Unknown History meloxicam 15 mg tablet 15 mg PO DAILY 01/03/22 Unknown History fluoxetine 20 mg capsule 20 mg PO DAILY 07/01/22 03/23/23 Unknown History gabapentin 600 mg tablet 600 mg PO TID 07/01/22 03/23/23 Unknown History lorazepam 0.5 mg tablet 0.5 mg PO BID PRN Anxiety 07/01/22 03/23/23 Unknown History trazodone 50 mg tablet 50 mg PO BEDTIME PRN Insomnia 07/01/22 03/23/23 Unknown History Exam Exam Date and Time: March 25, 2023 0900 Height,Weight and Vital Signs: Height 5 ft 3 in Weight 66.224 kg Pertinent Lab Results Pertinent Lab Results: Laboratory Tests 02/16/23 14:10 WBC 7.8 Hgb 15.3 Hct 45.0 Plt Count 243 Sodium 140 Potassium 4.0 Chloride 108 Carbon Dioxide 26 BUN 19 H Creatinine 1.47 H Narrative Narrative: EKG 01/2023 Vent. Rate : 056 BPM Atrial Rate : 056 BPM P-R Int : 142 ms QRS Dur : 086 ms QT Int : 412 ms P-R-T Axes : 063 014 042 degrees QTc Int : 397 ms Sinus bradycardia Otherwise normal ECG No previous ECGs available ECHO 2021 Conclusions: - essentially normal study with mild fibrocalcific aortic valve Exercise Stress 2021 Protocol: ERIK Max HR: 136 BPM 87% of Pred: 155 BPM Max BP: 154/068 mmHG Max Work Load: 7.1 METS Exercise stress test with exercise 6 min 6 sec of Erik protocol, without anginal symptoms, with isolated PVC, with normotensive response to exercise, without EKG changes meeting criteria for ischemia, there are J point depression with upsloping ST segments. At baseline there is borderline ST depression and T wave inversion lead III that improves with exercise and returns in recovery. Test reviewed with Dr Iniguez Assessment and Plan Assessment Anesthesia Assessment: Chart Reviewed
--- NOTE | 2023-03-25 19:19 | MHC.SHP ---
Pre-Procedural Eval Section A Date of Service: 03/25/23 The patient is an INPATIENT: No Changes since office visit: No Cold of Flu in the past 2 weeks, No New Medical Problems, No Changes in Medication and No Patient answered all questions The History & Physical has been completed within 30 days and I have reviewed it.: Yes Section B Chief Complaint: Unilateral inguinal hernia, without obstruction or Allergies: Allergies Allergy/AdvReac Type Severity Reaction Status Date / Time Penicillins Allergy Intermediate rash Verified 03/23/23 16:47 latex Allergy Mild rash Verified 03/23/23 16:47 Plan I have reviewed the history and physical and performed a pertinent physical examination on my patient. No changes have occurred unless specified. Time Spent With Patient Time: Total time managing care of this patient today ____ minutes.
[2023-03-26 06:37] VITALS: BP 144/84; PULSE 65; RESP 16; TEMP 36.8; O2SAT 96
[2023-03-26] MEDS: Lactated Ringers 1,000 ML 100 ML IVCONT (06:43)
--- NOTE | 2023-03-26 07:21 | P.CONAN_ITS ---
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 Mother CVD (cardiovascular disease) Surgical History Surgical History History of total left knee replacement History of back surgery (~03/13/21) History of shoulder surgery Social History Social History Household Members: Spouse and Family Housing: House Are you a primary pediatric critical care nurse to a significant other at home: No Do you presently have visiting nurse or other home services: No Alcohol intake: never Patient Tobacco Use Status: Never used Tobacco Use of substances other than those prescribed or required for medical reasons: No Have you been hit, kicked, punched, or otherwise hurt by someone within the past year? If so, by whom?: No Are you DNR?: No Advance Directives: No Advance Directives Information Provided: Yes Advance Directives on File: No Recently lost weight without trying: No Nutrition Risks: No Nutritional Risk Meds Allergies Allergy/AdvReac Type Severity Reaction Status Date / Time Penicillins Allergy Intermediate rash Verified 03/23/23 16:47 latex Allergy Mild rash Verified 03/23/23 16:47 Active Medications: Current Medications Albuterol Sulfate (Albuterol Sulfate (0.083%) 2.5 Mg/3 Ml Vial.Neb) 2.5 mg INHALE ONCE PRN PRN Reason: Shortness of Breath/Wheezing Lactated Ringer's (Lr) 1,000 mls @ 100 mls/hr IVCONT .Q10H MICHAEL Last Admin: 03/26/23 06:43 Dose: 100 mls/hr Home Medications Medication Instructions Recorded Confirmed Last Taken Type atorvastatin 40 mg tablet 40 mg PO DAILY 07/04/21 03/23/23 Unknown History cetirizine 10 mg tablet 10 mg PO DAILY 07/04/21 07/04/21 Unknown History hydrocortisone 2.5 % topical cream appl topical BID 07/04/21 07/04/21 Unknown History omeprazole 20 mg capsule,delayed 20 mg PO BID PRN Gastric Reflux 07/04/21 03/23/23 Unknown History release celecoxib 200 mg capsule 200 mg PO DAILY 10/10/21 10/10/21 Unknown History oxycodone 5 mg tablet mg PO 10/10/21 10/10/21 Unknown History meloxicam 15 mg tablet 15 mg PO DAILY 01/03/22 Unknown History fluoxetine 20 mg capsule 20 mg PO DAILY 07/01/22 03/23/23 Unknown History gabapentin 600 mg tablet 600 mg PO TID 07/01/22 03/23/23 Unknown History lorazepam 0.5 mg tablet 0.5 mg PO BID PRN Anxiety 07/01/22 03/23/23 Unknown History trazodone 50 mg tablet 50 mg PO BEDTIME PRN Insomnia 07/01/22 03/23/23 Unknown History Exam Exam Date and Time: March 26, 2023720 Height,Weight and Vital Signs: Height 5 ft 3 in Weight 66.224 kg Last Vital Signs Temp 98.2 F 03/26/23 06:37 Pulse 65 03/26/23 06:37 Resp 16 03/26/23 06:37 BP 144/84 H 03/26/23 06:37 Pulse Ox 96 03/26/23 06:37 O2 Del Method Room Air 03/26/23 06:37 Airway Mallampati Class: II TM Dist: >3cm Neck ROM: Full Heart: RRR Lungs: CTA Assessment and Plan Assessment Anesthesia Assessment: Anesthesia Plan Discussed Final Anesthetic Review ASA Class: II Final Preanesthetic Review: Meds/Allgs Chart Reviewed, Consent Obtained/Reviewed and Anes Risks/Benef Reviewed Patient Risk: Low Procedure Risk: Low Anesthetic Plan Anesthetic Plan: MAC: Disposition: Standard PACU
[2023-03-26 08:20] VITALS: BP 112/57; PULSE 84; RESP 17; TEMP 36.7; O2SAT 98
[2023-03-26 08:25] VITALS: BP 106/60; PULSE 78; RESP 18; O2SAT 96
[2023-03-26 08:30] VITALS: BP 104/51; PULSE 82; RESP 18; O2SAT 95
--- NOTE | 2023-03-26 08:31 | P.OP_ITS ---
Operative Note Operative Note Date of Service: 03/26/23 Narrative: Preoperative diagnosis: [] symptomatic left inguinal hernia Postop diagnosis: [] same Procedure [] open left inguinal herniorrhaphy with our mesh Surgeon: [] [employer] Client Services Coordinator: [] Pako Type of Anesthesia: [] general Indication for surgery: [] moderately sized direct left inguinal hernia. No indirect hernia Findings: [] The patient was brought to the operating room, placed on the operative room table in the supine position, and after an adequate level of general anesthesia was induced, the left groin was prepped and draped in usual sterile small left para inguinal incision, this was carried down through skin, subcutaneous tissue, and Boone's fascia. External oblique fibers were opened their direction with care to isolate and preserve the ilioinguinal nerve throughout the procedure. The spermatic cord was identified and retracted from the field. Exploration of the cord demonstrated no indirect hernia. A moderately-sized directing all hernia was found and reduced. A Bard plug was placed in the direct defect, and sutured inferiorly to the inguinal ligament, and superiorly to transversalis fascia using interrupted 0 Ethibond suture. At completion, mesh was in good position with no tension no gaps. The wound Was irrigated, sleep hemostasis, and closed in the following manner; external oblique fascia was closed using running2. 0 Vicryl suture. Boone's fascia was reclosed using an up to 3-0 Vicryl sutures. Interrupted inverted deep dermal 3-0 Vicryl sutures followed by running subcuticular Four 0 Vicryl suture. Steri-Strips and sterile dressings were applied. WoundWas infiltrated with 0.5% Marcaine / 1% lidocaine a completion. Ipsilateral testicle was sent to school at completion. Sponge, needle, instrument counts reported be correct. Patient tolerated the p rocedure well and emerged anesthesia in stable condition. EBL minimal
[2023-03-26 08:35] VITALS: BP 106/61; PULSE 79; RESP 20; TEMP 36.2; O2SAT 94
[2023-03-26 08:50] VITALS: BP 107/62; PULSE 66; RESP 16; TEMP 36.1; O2SAT 95
--- NOTE | 2023-03-26 09:21 | HO.POSTANES ---
Post Anesthesia Evaluation Post Anesthesia Evaluation Date of Service: 03/26/23 Vital Signs: Vital Signs Temp Pulse Resp BP Pulse Ox O2 Del Method 03/26/23 08:50 97 F 66 16 107/62 95 Room Air 03/26/23 08:35 97.2 F 79 20 106/61 94 Room Air 03/26/23 08:30 82 18 104/51 L 95 Room Air 03/26/23 08:25 78 18 106/60 96 Room Air 03/26/23 08:20 98.1 F 84 17 112/57 L 98 Room Air 03/26/23 06:37 98.2 F 65 16 144/84 H 96 Room Air Anesthesia: General LMA and General Mental Status: Awake Pain Control: Satisfactory Nausea/Vomiting: None Hydration: Adequate Anesthesia-Related Issues: No Anes. Related Issues
== END 2023-03-26 09:56 | disposition home or self-care (01) ==
PROVIDERS: PCP Internal Medicine Geriatric Medicine; Visit Provider Surgery
PROC: (CPT 49505; principal; 2023-03-26 07:30)
DX: K40.90 Unilateral inguinal hernia, without obstruction or gangrene, not specified as recurrent (principal); I10 Essential (primary) hypertension; R73.03 Prediabetes; E78.00 Pure hypercholesterolemia, unspecified; J45.909 Unspecified asthma, uncomplicated; N40.0 Benign prostatic hyperplasia without lower urinary tract symptoms; Z79.899 Other long term (current) drug therapy; Z88.0 Allergy status to penicillin; Z91.040 Latex allergy status; Z96.652 Presence of left artificial knee joint
CPT/HCPCS: 49505; C1781; J1100; J2250; J2405; J3010

== ENCOUNTER → 2023-03-26 06:02 | Outpatient (BNV) | payer OTHER, MEDICAID, SELFPAY | PROVIDERS: PCP Internal Medicine Geriatric Medicine; Visit Provider Surgery | DX: K40.90 Unilateral inguinal hernia, without obstruction or gangrene, not specified as recurrent (principal) | CPT/HCPCS: 49505 ==

== ENCOUNTER 2023-04-06 10:12 | Outpatient (REF) | payer OTHER, MEDICAID, SELFPAY ==
[2023-04-06 11:57] LABS: MANUAL DIFF FLAG NO
[2023-04-06 12:06] LABS: Basophils Absolute Auto 0.1 X10*3/uL (0.0-0.2); Basophils Percent Auto 0.6 % (0-2); Eosinophils Absolute Auto 0.3 X10*3/uL (0.0-0.4); Eosinophils Percent Auto 3.3 % (0-4); Hematocrit 48.4 % (42.0-52.0); Imm Gran Abs Auto 0.03 X10*3/uL (0.00-0.03); Imm Gran Pct Auto 0.3 % (0.0-0.4); Lymphocytes Absolute Auto 2.1 X10*3/uL (1.2-4.9); Lymphocytes Percent Auto 24.7 % (20-40); Mean Corpuscular HGB Conc 33.1 g/dl (31.0-36.0); Mean Corpuscular Hemoglobin 30.5 pg (27.0-33.0); Mean Corpuscular Volume 92.4 fL (80.0-98.0); Mean Platelet Volume 9.3 fL (9.4-12.4); Monocytes Absolute Auto 0.7 X10*3/uL (0.1-1.2); Monocytes Percent Auto 8.1 % (2-11); Neutrophils Absolute Auto 5.5 x10*3/uL (2.0-8.3); Platelet Count 285 X10*3/uL (160-400); Red Blood Count 5.24 X10*6/uL (4.60-5.80); Red Cell Distribution Width 12.8 % (11.0-16.0); White Blood Count 8.7 X10*3/uL (4.8-10.8)
[2023-04-06 12:16] LABS: Estimated Average Glucose 105 mg/dL; Hemoglobin A1c % 5.3 % (<6.0)
[2023-04-06 12:47] LABS: Creatinine Urine 245.39 mg/dL; Microalbum/Creatinine Ratio Ur 4.8 ug/mg cr (<30)
[2023-04-06 13:02] LABS: Alanine Aminotransferase 83 U/L (0-40); Albumin Level 4.4 g/dL (3.5-5.0); Alkaline Phosphatase 169 U/L (39-117); Anion Gap 13 (12-20); Aspartate Amino Transferase 33 U/L (5-37); Bilirubin Total 0.8 mg/dL (0.0-1.0); Blood Urea Nitrogen 16 mg/dL (9-16); Calcium 10.1 mg/dL (8.4-10.2); Carbon Dioxide 24 mmol/L (22-29); Chloride 108 mmol/L (96-108); Cholesterol 133 mg/dL (<200); Estimated Glomerular Filt Rate > 60; Glucose Random 89 mg/dL (60-115); HDL Cholesterol 49 mg/dL (>40); LDL Cholesterol Calculated 67 mg/dL (<100); Potassium 4.2 mmol/L (3.3-5.1); Sodium 141 mmol/L (135-145); TSH reflex Free T4 1.28 uIU/mL (0.32-4.0); Total Protein 7.7 g/dL (6.5-8.0); Triglycerides 87 mg/dL (<150)
[2023-04-06 13:09] LABS: HBS Num1 0.51 mIU/mL (0-7.99); HIV AB/AG Nonreactive (Nonreactive); HIV Num 1 0.07 S/CO (0.00-0.99); Hepatitis B Core Antibody Nonreactive (Nonreactive); Syphilis Screen Nonreactive (Nonreactive); ~HepC Num1 0.05 S/CO (0.00-0.79); ~Hepatitis B Surface Antibody NONREACTIVE (Nonreactive); ~Hepatitis C Antibody Nonreactive (Nonreactive)
[2023-04-06 13:16] LABS: Folate 13.9 ng/mL (> or = 4.0); Vitamin B12 1358 pg/mL (200-900)
[2023-04-06 14:04] LABS: CT PCR NOT DETECTED (Not Detect.); NG PCR NOT DETECTED (Not Detect.)
[2023-04-07 16:04] LABS: Hepatitis B Viral DNA Qn - cp NOT DETECTED Log IU/mL (NOT DETECTED); Hepatitis B Viral DNA Qn-IU/mL NOT DETECTED (NOT DETECTED)
[2023-04-10 11:54] LABS: VITAMIN D (1,25 OH) D3 49 pg/mL; Vit D (1,25-Dihydroxy) Total 49 pg/mL (18-72); Vitamin D (1,25 OH) D2 <8 pg/mL
== END 2023-04-06 10:13 | disposition home or self-care (01) ==
LOC: HO.HHCLNP 10:12
PROVIDERS: Visit Provider Student in an Organized Health Care Education/Training Program
DX: Z00.00 Encounter for general adult medical examination without abnormal findings (principal); K40.90 Unilateral inguinal hernia, without obstruction or gangrene, not specified as recurrent; R73.03 Prediabetes; E78.00 Pure hypercholesterolemia, unspecified; I10 Essential (primary) hypertension; Z20.2 Contact with and (suspected) exposure to infections with a predominantly sexual mode of transmission; Z13.21 Encounter for screening for nutritional disorder
CPT/HCPCS: 0353U; 80053; 80061; 82043; 82570; 82607; 82652; 82746; 83036; 84443; 85025; 86704; 86706; 86780; 86803; 87389; 87517; 99212

== ENCOUNTER 2023-04-06 14:11 | Outpatient (AMB) | payer OTHER, MEDICAID, SELFPAY ==
[2023-04-06 14:20] VITALS: BP 140/74; PULSE 65
--- NOTE | 2023-04-06 14:20 | MHC.OFFVIS ---
Intake Vital Signs 04/06/23 14:20 Weight 149 lb BP 140/74 H Blood Pressure Location Rt brachial Position Sitting Pulse 65 Intake Visit Reasons: S/P LIH w/mesh Intake Note: Patient here s/p LIH w/mesh. Reports burning sensation that spreads from Lt lower abd to groin. Incisions healing well. Denies bleeding or oozing. Recently started on meclizine unsure mg. Pug Mill Operator Required: No Accompanied by: Spouse Allergies Penicillins Allergy (Intermediate, Verified 04/06/23 14:22) rash latex Allergy (Mild, Verified 04/06/23 14:22) rash HPI HPI Comments History of Present Illness Details Patient presents his . Aside from incisional discomfort which is improving, is doing well. He has time diet. Having normal bowel habits. He is increasing his activity level. 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 Mother CVD (cardiovascular disease) Social History Household Members: Spouse and Family Housing: House Are you a primary resident care technician to a significant other at home: No Do you presently have visiting nurse or other home services: No Alcohol intake: never Patient Tobacco Use Status: Never used Tobacco Physical Exam Vital Signs: Last Vital Signs Pulse 65 04/06/23 14:20 BP 140/74 H 04/06/23 14:20 GI Other: Abdomen soft. Incision clean dry and intact healing well. Assessment & Plan Assessment & Plan (1) Inguinal hernia: Onset Date: 03/26/23 Comment: Dr. Broderick Rainey LIH w/mesh Code(s): K40.90 - Unilateral inguinal hernia, without obstruction or gangrene, not specified as recurrent Plan Patient has been given local instructions, and will follow-up p.r.n.. Coding Level of Care Code Global (54950) Diagnoses Inguinal hernia K40.90
== END 2023-04-06 14:27 | disposition home or self-care (01) ==
PROVIDERS: PCP Internal Medicine Geriatric Medicine; Visit Provider Surgery
DX: K40.90 Unilateral inguinal hernia, without obstruction or gangrene, not specified as recurrent (principal)
CPT/HCPCS: 99024

== ENCOUNTER 2023-04-13 08:39 | Outpatient (REF) | payer OTHER, MEDICAID, SELFPAY ==
[2023-04-13 11:31] LABS: MANUAL DIFF FLAG NO
[2023-04-13 11:39] LABS: Basophils Absolute Auto 0.1 X10*3/uL (0.0-0.2); Basophils Percent Auto 0.7 % (0-2); Eosinophils Absolute Auto 0.3 X10*3/uL (0.0-0.4); Eosinophils Percent Auto 4.2 % (0-4); Hematocrit 48.5 % (42.0-52.0); Hemoglobin 15.8 g/dl (14.0-18.0); Imm Gran Abs Auto 0.02 X10*3/uL (0.00-0.03); Imm Gran Pct Auto 0.3 % (0.0-0.4); Lymphocytes Absolute Auto 2.3 X10*3/uL (1.2-4.9); Lymphocytes Percent Auto 33.4 % (20-40); Mean Corpuscular HGB Conc 32.6 g/dl (31.0-36.0); Mean Corpuscular Hemoglobin 30.1 pg (27.0-33.0); Mean Corpuscular Volume 92.4 fL (80.0-98.0); Mean Platelet Volume 9.6 fL (9.4-12.4); Monocytes Absolute Auto 0.6 X10*3/uL (0.1-1.2); Monocytes Percent Auto 9.2 % (2-11); Neutrophils Absolute Auto 3.6 x10*3/uL (2.0-8.3); Neutrophils Percent Auto 52.2 % (45-73); Platelet Count 294 X10*3/uL (160-400); Red Blood Count 5.25 X10*6/uL (4.60-5.80); Red Cell Distribution Width 12.8 % (11.0-16.0)
[2023-04-13 12:07] LABS: Alanine Aminotransferase 38 U/L (0-40); Albumin Level 4.4 g/dL (3.5-5.0); Alkaline Phosphatase 164 U/L (39-117); Anion Gap 11 (12-20); Aspartate Amino Transferase 21 U/L (5-37); Blood Urea Nitrogen 15 mg/dL (9-16); Calcium 9.6 mg/dL (8.4-10.2); Carbon Dioxide 25 mmol/L (22-29); Chloride 108 mmol/L (96-108); Estimated Glomerular Filt Rate > 60; Glucose Random 104 mg/dL (60-115); Potassium 4.3 mmol/L (3.3-5.1); Sodium 140 mmol/L (135-145); Total Protein 7.4 g/dL (6.5-8.0)
[2023-04-13 12:23] LABS: Creatinine Urine 85.34 mg/dL; Microalbumin Urine < 5.0 mg/L
[2023-04-13 15:07] LABS: Gamma Glutamyl Transpeptidase 48 U/L (11-51)
[2023-04-14 06:17] LABS: HIV AB/AG Nonreactive (Nonreactive); HIV Num 1 0.08 S/CO (0.00-0.99); Hepatitis B Surface Antigen Negative (Negative)
== END 2023-04-13 08:40 | disposition home or self-care (01) ==
LOC: HO.HHCL 08:39
PROVIDERS: Visit Provider Student in an Organized Health Care Education/Training Program
DX: Z00.00 Encounter for general adult medical examination without abnormal findings (principal); Z11.4 Encounter for screening for human immunodeficiency virus [HIV]; R94.5 Abnormal results of liver function studies; R74.01 Elevation of levels of liver transaminase levels; K29.70 Gastritis, unspecified, without bleeding
CPT/HCPCS: 36415; 80053; 82043; 82570; 82977; 84075; 85025; 87340; 87389

== ENCOUNTER 2023-04-20 19:49 | Outpatient (REF) | payer OTHER, MEDICAID, SELFPAY ==
[2023-04-23 10:17] LABS: H Pylori Breath Test Negative (Negative)
== END 2023-04-20 19:50 | disposition home or self-care (01) ==
LOC: HO.HHCLNP 19:49
PROVIDERS: Visit Provider Student in an Organized Health Care Education/Training Program
DX: K29.70 Gastritis, unspecified, without bleeding (principal)
CPT/HCPCS: 83013

== ENCOUNTER → 2023-06-17 09:48 | Outpatient (REF) | payer OTHER, MEDICAID, SELFPAY ==
--- NOTE | ~2023-06-17 | NM_ITS ---
EXAMINATION: NM BONE SCAN OF THE WHOLE BODY CLINICAL INFORMATION: Elevated alkaline phosphatase. COMPARISON: MRI of the cervical spine done on 05/25/2020. Chest radiograph done on 08/24/2018. TECHNIQUE: Multiple gamma scintillation camera images of the whole body were performed 3 hours following the intravenous administration of 23.0 mCi Tc-99m MDP. The radiotracer was injected through left antecubital superficial vein without complications. FINDINGS: There is generalized increased tracer avidity identified throughout the entire skeleton associated with periarticular increased tracer avidity and mild/and visualization of the kidneys. The findings are consistent with SuperScan . In the head, no discrete focal abnormality. In the thoracic cage and upper extremities, no discrete focal abnormality. In the spine, linear diffuse increased tracer avidity at L5. In the pelvis, no focal lesion. In the lower extremities, postsurgical changes at left knee. Focal increased tracer avidity at medial right knee likely represent posttraumatic and/or arthritic changes. No other definite bony abnormalities are noted. The urinary bladder and faint visualization of both kidneys are noted. NM/NM bone scan whole body IMPRESSION: 1. Abnormal appearance of the bone scan showing features most consistent with SuperScan . The appearance is nonspecific, consistent with metabolic bone disease including hyperparathyroidism, osteomalacia, renal osteodystrophy as well as Paget's disease. Radiographic correlation as well as biochemical/correlation with lab values as appropriate is recommended. 2. Specific note is made of diffuse linear increased tracer avidity at L5 which may represent superimposed focal pathologic lesion. Radiographic correlation is recommended.
== END ==
LOC: HO.NUCMED 09:48
PROVIDERS: PCP Internal Medicine Geriatric Medicine; Visit Provider Student in an Organized Health Care Education/Training Program
DX: R74.8 Abnormal levels of other serum enzymes (principal)
CPT/HCPCS: 78306; A9503

== ENCOUNTER 2023-07-02 14:54 | Outpatient (AMB) | payer OTHER, MEDICAID, SELFPAY ==
--- NOTE | 2023-07-02 15:06 | A.OFFVIS_ITS ---
Intake Intake Visit Reasons: 1Y PVR(set) Intake Note: Patient presents today for a yearly follow up and PVR Meds- Finasteride, Tamsulosin, Terazosin Allergies to Antibiotic- Penicillin Blood Thinner- None Post Void Residual: 32 Chemistry Faculty Member Required: Yes Accompanied by: Self / Same As Patient Allergies Penicillins Allergy (Intermediate, Verified 07/02/23 15:21) rash latex Allergy (Mild, Verified 07/02/23 15:21) rash Medication List - Last Reconciled 07/02/23 by Jens Abdullahi MD atorvastatin 40 mg PO DAILY celecoxib 200 mg PO DAILY cetirizine 10 mg PO DAILY finasteride 5 mg PO DAILY 90 days fluoxetine 20 mg PO DAILY gabapentin 600 mg PO TID hydrocodone-acetaminophen 5-325 mg 1 tab PO Q4-6H PRN hydrocortisone 2.5% appl topical BID lorazepam 0.5 mg PO BID PRN meloxicam 15 mg PO DAILY omeprazole 20 mg PO BID PRN oxycodone mg PO terazosin 10 mg PO BEDTIME 90 days trazodone 50 mg PO BEDTIME PRN HPI HPI Comments History of Present Illness Details Hoang is a pleasant male. He is a patient of Dr. Ford. He seen for the following urologic conditions - lower urinary tract symptoms Chinese translation provided in office by qualified medical staff director PVR today 30 cc Effective bladder emptying Minimal nocturia Good stream Try stopping terazosin Understands may be symptomatic within 3-4 days Would restart if that is the case Refill finasteride 12 month follow-up Lower urinary tract symptoms Progressive weakness of stream Knee replacement in September 2021 with urinary retention Current medications include finasteride and terazosin 10 mg PSA 06/30 1.0 PFSH Medical History Depression Anxiety History of Helicobacter pylori infection BPPV (benign paroxysmal positional vertigo) Pre-diabetes BPH (benign prostatic hyperplasia) Asthma Elevated cholesterol 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 Mother CVD (cardiovascular disease) Social History Household Members: Spouse and Family Housing: House Are you a primary customer care consultant to a significant other at home: No Do you presently have visiting nurse or other home services: No Alcohol intake: never Patient Tobacco Use Status: Never used Tobacco Review of Systems Const Denies chills and Denies fever(s) Card Reports no additional complaints and Denies syncope Resp Denies cough GI Denies abdominal pain and Denies heartburn Reports as per HPI and Denies change in libido Neuro Denies syncope Psych Denies change in libido Endo Denies change in libido Physical Exam Const General: cooperative, healthy appearing, comfortable and no acute distress Orientation/consciousness: patient oriented x3 HEENT Face and sinus: Yes normal facial exam Mouth: moist mucous membranes Neck Neck: Yes normal visual inspection, Yes full ROM and Yes trachea midline Chest Chest palpation & inspection: normal inspection of the chest Resp Effort & Inspection: normal respiratory effort, able to speak in complete sentences and no respiratory distress GI Inspection: Yes normal to inspection Back/Spine/Pelvis Cervical Spine: normal cervical lordosis Thoracic/Lumbar Spine: thoracic and lumbar spine normal to inspection Skin General skin exam: no rashes or lesions noted Neuro General: patient oriented x3, gait normal, tone normal and moves all extremities Extrem General: Yes normal to inspection and Yes capillary refill normal Office Procedures Post Void Residual Post Residual Void Post Void Residual (PVR): 32 [id number]-[id number] Void Residual by ultrasound Assessment & Plan Assessment & Plan (1) Urinary retention with incomplete bladder emptying: Code(s): R33.9 - Retention of urine, unspecified (2) Bladder outlet obstruction: Code(s): N32.0 - Bladder-neck obstruction Plan Twelve month follow-up PSA and PVR Orders: Orders AMB Post Void Residual by ultrasound Today R33.9 - Retention of urine, unspecified Prostate Specific Antigen 364 Days N32.0 - Bladder-neck obstruction Patient Instructions: Imaging studies, laboratory and physical exam results were discussed and reviewed in detail. No major barriers to patient understanding were identified. An opportunity to ask questions regarding the treatment plan was provided. All questions were answered. The patient expressed understanding and agreement with the above treatment plan. The patient is aware they should contact our office by phone for worsening of their current condition or the appearance of new urologic symptoms. Compliance is encouraged with any medications and followup testing that is ordered. It is a privilege to participate in the urologic care of your patient. If you have any questions or concerns regarding treatment for the above conditions, or other urologic issues, please do not hesitate to contact me. The office telephone contact is [phone]. This note is constructed using voice recognition software. While every effort milligan s been made to ensure accuracy facility operations manager errors may have been included. Yours sincerely, Dr Jens Abdullahi MD, [facility] - Urology Providers of Expert, Compassionate Care for the Genitourinary System Coding Level of Care Code Est Pt Level 4 (99239) Diagnoses Urinary retention with incomplete bladder emptying R33.9 Bladder outlet obstruction N32.0 CPT Codes Post Residual Void - PVR CPT Code: 89014-Pntg Void Residual by ultrasound ([id number])
== END 2023-07-02 15:50 | disposition home or self-care (01) ==
PROVIDERS: Visit Provider Urology
DX: R33.9 Retention of urine, unspecified (principal); N32.0 Bladder-neck obstruction
CPT/HCPCS: 99214

== ENCOUNTER → 2023-07-02 14:54 | Outpatient (BNVA) | payer OTHER, MEDICAID, SELFPAY | PROVIDERS: Visit Provider Urology | DX: R33.9 Retention of urine, unspecified (principal); N32.0 Bladder-neck obstruction | CPT/HCPCS: 51798; 99212 ==

== ENCOUNTER 2023-07-07 12:04 | Outpatient (REF) | payer OTHER, MEDICAID, SELFPAY ==
--- NOTE | ~2023-07-07 | XR_ITS ---
EXAMINATION: XR LUMBOSACRAL SPINE CLINICAL INFORMATION: Abnormal signal within L5 on the prior bone scan. COMPARISON: Nuclear medicine bone scan dated 06/17/2023. TECHNIQUE: 3 views of the lumbosacral spine. FINDINGS: Posterior stabilization and intervertebral disc hardware at L4-L5. No hardware fracture. No significant perihardware lucency to suggest loosening or infection. Normal vertebral body alignment. The lumbar lordosis is maintained. No loss of vertebral body or intervertebral disc height. No concerning lytic or blastic osseous lesion. No abnormal soft tissue calcification. XR/XR lumbar spine 2-3V IMPRESSION: Posterior stabilization and intervertebral disc hardware at L4-L5 without evidence of hardware complication.
== END 2023-07-07 12:05 | disposition home or self-care (01) ==
LOC: HO.HHCX 12:04
PROVIDERS: Visit Provider Student in an Organized Health Care Education/Training Program
DX: R74.8 Abnormal levels of other serum enzymes (principal); R94.8 Abnormal results of function studies of other organs and systems
CPT/HCPCS: 72100

== ENCOUNTER 2023-08-18 09:09 | Emergency (ER) | payer OTHER, MEDICAID, SELFPAY ==
[2023-08-18 09:30] VITALS: BP 118/72; PULSE 74; RESP 16; TEMP 36.6; O2SAT 97; BMI 26.1
--- NOTE | 2023-08-18 10:24 | ED.GENADULT ---
HPI - General Adult General Chief complaint: Skin/Abscess/Foreign Body Stated complaint: Rash, itchiness Time Seen by Provider: 08/18/23 09:58 Source: patient Mode of arrival: ambulatory Limitations: no limitations History of Present Illness HPI narrative: 67-year-old male history of hypertension, bladder outlet obstruction, presenting to the emergency department with complaints of hives throughout entire body ongoing since Thursday not improving despite taking Benadryl. Patient reports the rash/hives are very itchy. He is scheduled to see an bounty hunter later this week. He denies any new exposures. Denies chest pain, shortness of breath, changes in voice, trouble controlling secretions, cough, wheezing, nausea, vomiting, abdominal pain, headache, vision changes, dizziness and weakness. Related Data Home Medications Medication Instructions Recorded Confirmed atorvastatin 40 mg tablet 40 mg PO DAILY 07/04/21 07/02/23 cetirizine 10 mg tablet 10 mg PO DAILY 07/04/21 07/02/23 hydrocortisone 2.5 % topical cream appl topical BID 07/04/21 07/02/23 omeprazole 20 mg capsule,delayed 20 mg PO BID PRN Gastric Reflux 07/04/21 07/02/23 release celecoxib 200 mg capsule 200 mg PO DAILY 10/10/21 07/02/23 oxycodone 5 mg tablet mg PO 10/10/21 07/02/23 meloxicam 15 mg tablet 15 mg PO DAILY 01/03/22 07/02/23 fluoxetine 20 mg capsule 20 mg PO DAILY 07/01/22 07/02/23 gabapentin 600 mg tablet 600 mg PO TID 07/01/22 07/02/23 lorazepam 0.5 mg tablet 0.5 mg PO BID PRN Anxiety 07/01/22 07/02/23 trazodone 50 mg tablet 50 mg PO BEDTIME PRN Insomnia 07/01/22 07/02/23 Previous Rx's Medication Instructions Recorded hydrocodone 5 mg-acetaminophen 325 1 tab PO Q4-6H PRN pain #30 tabs 03/26/23 mg tablet finasteride 5 mg tablet 5 mg PO DAILY 90 days #90 tabs 07/02/23 terazosin 10 mg capsule 10 mg PO BEDTIME 90 days #90 caps 07/30/23 diphenhydramine HCl 25 mg capsule 25 mg PO TID PRN allergic reaction 03/12/24 (Benadryl) #20 caps epinephrine 0.3 mg/0.3 mL 0.3 mg (0.3 mL) IM Q4H PRN 08/18/23 injection, auto-injector (EpiPen anaphylaxis #2 ea 2-Luther) prednisone 20 mg tablet 40 mg (2 x 20 mg) PO DAILY 5 days 08/18/23 #10 tabs Allergies Allergy/AdvReac Type Severity Reaction Status Date / Time Penicillins Allergy Intermediate rash Verified 07/02/23 15:21 latex Allergy Mild rash Verified 07/02/23 15:21 Review of Systems Review of Systems: Yes all other systems are reviewed and are negative [facility] Past Medical History Attestation statement: The following information was validated with the patient. 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 Mother CVD (cardiovascular disease) Social History Social History Household Members: Spouse and Family Housing: House Are you a primary foster care case manager to a significant other at home: No Do you presently have visiting nurse or other home services: No Alcohol intake: never Patient Tobacco Use Status: Never used Tobacco Smoked in Last 30 Days: No Use of substances other than those prescribed or required for medical reasons: No Advance Directives: No Advance Directives Information Provided: Yes Physical Exam ED Vital Signs: Vital Signs - 24 hr 08/18/23 09:30 Temperature 98 F Pulse Rate 74 Respiratory Rate 16 Blood Pressure 118/72 Pulse Oximetry 97 Oxygen Delivery Method Room Air BMI result Body Mass Index 26.1 vss Appearance: Alert.? Oriented X3.? No acute distress.? Head: Normocephalic, atraumatic, no step-offs or deformities Eyes: Pupils equal, round and reactive to light.? ENT: Pharynx normal.?Patent airway, no edema. Uvula midline. No noted swelling to lips,hard/soft palate, tongue, uvula. Speaking in full sentences controlling secretions well. Neck: Normal inspection.? Neck supple.? CVS: Normal heart rate and rhythm.? Pulses normal.? Respiratory: No respiratory distress.? Breath sounds normal.? Abdomen: Soft and nontender.? Skin: Skin warm and dry.? Normal skin color.? Normal skin turgor.?Diffuse urticaria to entire body face, neck, trunk, UE, LE Extremities: No lower extremity edema.? No calf ttp. 5/5 strength to bilateral upper and lower extremities Neuro: Oriented X 3.? No motor deficit.? No sensory deficit. CN 2-12 intact Course Reevaluation(s) Reevaluation #1: Slight improvement after IV meds. No breathing complaints. Patient will be discharged home with EpiPen. Educated on proper use. Educated patient on diagnosis and treatment plan, answered all question, patient verbalizes understanding. At this time patient will be discharged home, advised to return with new or worsening symptoms. Educated on worrisome signs and symptoms and when to return. At this time I feel comfortable discharge home. Time: 12:39 Medications Administered Discontinued Medications Generic Name Dose Route Start Last Admin Trade Name Freq PRN Reason Stop Dose Admin Diphenhydramine HCl 50 mg 08/18/23 10:08/18/23 11:02 Diphenhydramine Hcl 50 Mg/Ml Vial IVPUSH 08/18/23 10:20 50 mg ONCE ONE Administration Famotidine 20 mg 08/18/23 10:19 08/18/23 11:02 Famotidine/Pf 20 Mg/2 Ml Vial IVPUSH 08/18/23 10:20 20 mg ONCE ONE Administration Methylprednisolone Sodium Succinate 125 mg 08/18/23 10:08/18/23 10:59 Methylprednisolone Sod Succ 125 Mg/2 Ml Vial IVPUSH 08/18/23 10:20 125 mg ONCE ONE Administration Medical Decision Making Medical Decision Making [facility] Narrative: 1026 67-year-old male presents with itchy rash present since Thursday. Physical exam significant for Pharynx normal.?Patent airway, no edema. Uvula midline. No noted swelling to lips,hard/soft palate, tongue, uvula. Speaking in full sentences controlling secretions well. History and physical exam concerning for acute allergic reaction. No signs of anaphylaxis. No signs of airway compromise. Plan at this time will give Pepcid, Benadryl and Solu-Medrol. Differential Diagnosis Differential Diagnoses: The differential diagnosis associated with the presentation includes History and physical exam concerning for acute allergic reaction. No signs of anaphylaxis. No signs of airway compromise. Admission/Observation Consideration of admission/observation: Escalation of care including admission/observation considered Prescription Management I considered prescription management with: Other (steroids, benadryl) Chronic Conditions Patient?s care impacted by: Other (axiety, depression, bph) Critical Care Time Critical Care Time Critical Care Time: Yes Total Critical Care Time: 45 Attestation: I attest to this time spent taking care of the patient, obtaining history, physical, reviewing labs, imaging, speaking to my attending, speaking to specialist. Discharge Plan Discharge Clinical Impression: Urticaria, Allergic reaction Patient Disposition: Home, Self-Care Instructions: Urticaria (ED), Latex Allergy (ED), General Allergic Reaction (ED), Allergy Testing (ED) Additional Instructions: Take your medications as prescribed. If you were prescribed antibiotics today, it is important that you take your medication to their entirety, do not skip any doses, do not finish them early. Follow-up with your primary care provider this week. Return to the emergency department with new or worsening symptoms. Such as fevers, chills, chest pain, shortness of breath, nausea, vomiting, dizziness, headache, vision changes, lethargy In case of emergency call 911 How to use an EpiPen: ? Place the orange tip against the middle of the outer thigh. ? Swing and push the auto-injector firmly into the thigh until it ?clicks? ? Hold firmly in place for three seconds?count slowly, ?1, 2, 3? An EpiPen has been sent to your pharmacy this should only be used in severe emergency such as inability to breathe trouble speaking, shortness breath or any signs of anaphylaxis as discussed. If he use an EpiPen it is crucial you come in to an emergency department to be evaluated as you can have a rebound effect. Please follow-up with an allergy doctor. [place] stefani medicamentos seg?n lo recetado. Si hoy te recetaron antibi?ticos, es importante que tomes tu medicaci?n en eric totalidad, no te saltes ninguna dosis, no las termines antes de tiempo. Gwen un seguimiento con eric proveedor de atenci?n primaria esta semana. Regrese al departamento de emergencias si los s?ntomas son nuevos o empeoran. Gucci fiebre, escalofr?os, dolor de pecho, dificultad para respirar, n?useas, v?mitos, mareos, dolor de kash, cambios en la visi?n, letargo. En ninfa de emergencia llame al 911. C?mo utilizar un EpiPen: ? Coloque la punta naranja contra la mitad de la parte externa del muslo. ? Gire y empuje el autoinyector firmemente hacia el muslo hasta que gwen clic. ? Mant?ngalo firmemente en eric lugar clover lexi segundos; cuente lentamente, ?1, 2, 3?. Se envi? un EpiPen a eric farmacia; solo debe usarse en ninfa de emergencia grave, gucci incapacidad para respirar, dificultad para hablar, dificultad para respirar o cualquier signo de anafilaxia, gucci se mencion? anteriormente. Si usa un EpiPen, es fundamental que acuda a un departamento de emergencias para que lo eval?en, ya que puede tener un efecto rebote. Por favor gwen un seguimiento con un m?dico especialista en alergias. Prescriptions: New prednisone 20 mg tablet 40 mg PO DAILY 5 Days Qty: 10 0RF diphenhydramine HCl [Benadryl] 25 mg capsule 25 mg PO TID PRN (Reason: allergic reaction) Qty: 20 0RF epinephrine [EpiPen 2-Luther] 0.3 mg/0.3 mL auto-injector 0.3 mg IM Q4H PRN (Reason: anaphylaxis) Qty: 2 0RF No Action terazosin 10 mg capsule 10 mg PO BEDTIME 90 Days Qty: 90 3RF hydrocodone-acetaminophen 5-325 mg tablet 1 tab PO Q4-6H PRN (Reason: pain) Qty: 30 0RF Rx Instructions: Partial Fill upon patient request. celecoxib 200 mg capsule 200 mg PO DAILY oxycodone 5 mg tablet PO atorvastatin 40 mg tablet 40 mg PO DAILY omeprazole 20 mg capsule,delayed release(DR/EC) 20 mg PO BID PRN (Reason: Gastric Reflux) hydrocortisone 2.5 % cream topical BID cetirizine 10 mg tablet 10 mg PO DAILY meloxicam 15 mg tablet 15 mg PO DAILY lorazepam 0.5 mg tablet 0.5 mg PO BID PRN (Reason: Anxiety) fluoxetine 20 mg capsule 20 mg PO DAILY trazodone 50 mg tablet 50 mg PO BEDTIME PRN (Reason: Insomnia) gabapentin 600 mg tablet 600 mg PO TID finasteride 5 mg tablet 5 mg PO DAILY 90 Days Qty: 90 3RF Referrals: Yecenia Hopper MD [Primary Care Provider] - 2 days Stand Alone Forms: Work/School Release
[2023-08-18] MEDS: methylPREDNISolone Sod Succ 125 MG/2 ML VIAL IVPUSH (10:59)
[2023-08-18] MEDS: diphenhydrAMINE HCL 50 MG/ML VIAL IVPUSH (11:02)
[2023-08-18] MEDS: Famotidine/PF 20 MG/2 ML VIAL IVPUSH (11:02)
--- NOTE | 2023-08-18 11:10 | PC.NURSE ---
pt a&o x4, pleasant, calm, and cooperative. 20G IV placed to RAC. pt medicated per aug. pt currently resting quietly in no apparent distress. rr even/unlabored. plan of care ongoing.
== END 2023-08-18 12:58 | disposition home or self-care (01) ==
PROVIDERS: Emergency Provider Emergency Medicine Emergency Medical Services; PCP Student in an Organized Health Care Education/Training Program
DX: L50.0 Allergic urticaria (principal); Z79.899 Other long term (current) drug therapy
CPT/HCPCS: 96374; 96375; 99284; J1200; J2930

== ENCOUNTER 2023-09-14 23:04 | Emergency (ER) | payer OTHER, MEDICAID, SELFPAY ==
[2023-09-14 23:12] VITALS: BP 156/84; PULSE 74; RESP 18; TEMP 37.4; O2SAT 97; BMI 27.4
[2023-09-14 23:44] LABS: IDNOW Serial# 08D9AD1C
[2023-09-14 23:45] LABS: Strep A Nucleic Acid Positive (Negative)
[2023-09-15 00:01] LABS: COVID-19 Test Negative (Negative); IDNOW Serial# 152EDE1D
[2023-09-15 00:23] LABS: IDNOW Serial# 58CA691E; Influenza A Negative (Negative); Influenza B2 Negative (Negative)
--- NOTE | 2023-09-15 07:03 | ED_ITS ---
HPI - General Adult General Chief complaint: General Medical Stated complaint: migraine, throat pain/can't swallow Time Seen by Provider: 09/15/23 07:03 Source: patient and tuber helper (all interactions with this patient were facilitated with an [facility] foundry process engineer) Mode of arrival: ambulatory Limitations: language barrier (all interactions with this patient were facilitated with an [facility] foundry process engineer) History of Present Illness HPI narrative: Patient is a 67 year old assigned male at with a history of HTN presenting to the emergency department today with a sore throat, headache, chills, and coug h. Patient states that over the last day she has had a sore throat, headache, chills, and an intermittent cough. Patient states that his grandson has the same symptoms. Patient denies any dizziness, lightheadedness, abdominal pain, nausea, vomiting, fever, blurry vision, double vision, loss of vision, chest pain, difficulty breathing, shortness of breath, back pain, night sweats, pain with urination, increased urinary frequency, increased urinary urgency, blood in his urine or stool, syncope or a near syncopal episode, recent trauma or falls, bowel incontinence, bladder incontinence, bowel retention, bladder retention, or any other complaints at this time. Onset (ago): day(s) Severity: mild Relieving factors: none Exacerbating factors: none Associated symptoms: cough and fever/chills Treatments prior to arrival: none Related Data Home Medications ?Medication ?Instructions ?Recorded ?Confirmed atorvastatin 40 mg tablet 40 mg PO DAILY 07/04/21 07/02/23 cetirizine 10 mg tablet 10 mg PO DAILY 07/04/21 07/02/23 hydrocortisone 2.5 % topical cream appl topical BID 07/04/21 07/02/23 omeprazole 20 mg capsule,delayed 20 mg PO BID PRN Gastric Reflux 07/04/21 07/02/23 release celecoxib 200 mg capsule 200 mg PO DAILY 10/10/21 07/02/23 oxycodone 5 mg tablet mg PO 10/10/21 07/02/23 meloxicam 15 mg tablet 15 mg PO DAILY 01/03/22 07/02/23 fluoxetine 20 mg capsule 20 mg PO DAILY 07/01/22 07/02/23 gabapentin 600 mg tablet 600 mg PO TID 07/01/22 07/02/23 lorazepam 0.5 mg tablet 0.5 mg PO BID PRN Anxiety 07/01/22 07/02/23 trazodone 50 mg tablet 50 mg PO BEDTIME PRN Insomnia 07/01/22 07/02/23 Previous Rx's ?Medication ?Instructions ?Recorded hydrocodone 5 mg-acetaminophen 325 1 tab PO Q4-6H PRN pain #30 tabs 03/26/23 mg tablet finasteride 5 mg tablet 5 mg PO DAILY 90 days #90 tabs 07/02/23 terazosin 10 mg capsule 10 mg PO BEDTIME 90 days #90 caps 07/30/23 diphenhydramine HCl 25 mg capsule 25 mg PO TID PRN allergic reaction 08/18/23 (Benadryl) #20 caps epinephrine 0.3 mg/0.3 mL 0.3 mg (0.3 mL) IM Q4H PRN 08/18/23 injection, auto-injector (EpiPen anaphylaxis #2 ea 2-Luther) prednisone 20 mg tablet 40 mg (2 x 20 mg) PO DAILY 5 days 08/18/23 #10 tabs amoxicillin 500 mg tablet 500 mg PO BID 10 days #20 tabs 09/15/23 Allergies Allergy/AdvReac Type Severity Reaction Status Date / Time Penicillins Allergy Intermediate rash Verified 09/14/23 23:17 latex Allergy Mild rash Verified 09/14/23 23:17 Review of Systems Constitutional: Constitutional: Reports no additional constitutional complaints, Reports chills, Denies fever(s), Reports headache(s) and Denies night sweats Eyes: Eyes: Reports no additional eye complaints, Denies blurry vision, Denies change in vision, Denies diplopia, Denies eye discharge, Denies loss of vision and Denies eye pain ENT: Denies dizziness, Reports headache(s) and Reports sore throat Cardiovascular: Cardiovascular: Reports no additional cardiovascular complaints, Denies chest pain, Denies lightheadedness, Denies Loss of Consciousness and Denies dyspnea Respiratory: Respiratory: Reports no additional respiratory complaints, Reports cough and Denies dyspnea Gastrointestinal: Gastrointestinal: Reports no additional gastrointestinal complaints, Denies abdominal pain, Denies melena, Denies hematochezia, Denies change in bowel habits and Denies change in stool character Genitourinary: Genitourinary: Reports no additional male genitourinary complaints, Denies hematuria, Denies oliguria, Denies difficulty urinating, Denies dysuria, Denies urinary frequency, Denies urinary hesitancy, Denies urinary incontinence and Denies urinary urgency Musculoskeletal: Musculoskeletal: Reports no additional musculoskeletal complaints, Denies numbness and Denies tingling Neurologic: Denies dizziness, Reports headache(s), Denies loss of vision, Denies numbness and Denies tingling Psychiatric: Psychiatric: Reports no additional psychiatric complaints Endocrine: Endocrine: Reports no additional endocrine complaints Hematologic/Lymphatic: Hematologic/Lymphatic: Reports no additional hematologi c/lymphatic complaints Allergic/Immunologic: Allergic/Immunologic: Reports no additional allergic/immunologic complaints [facility] Past Medical History Attestation statement: The following information was validated with the patient. 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 Mother CVD (cardiovascular disease) Social History Social History Household Members: Spouse and Family Housing: House Are you a primary child adolescent care to a significant other at home: No Do you presently have visiting nurse or other home services: No Alcohol intake: never Patient Tobacco Use Status: Never used Tobacco Advance Directives: No Advance Directives Information Provided: No Physical Exam ED Vital Signs: Vital Signs - 24 hr 09/14/23 23:12 09/15/23 07:17 Temperature 99.3 F 97.9 F Pulse Rate 74 67 Respiratory Rate 18 20 Blood Pressure 156/84 H 120/81 Pulse Oximetry 97 96 Oxygen Delivery Method Room Air Room Air BMI result Body Mass Index 27.4 Const General: cooperative, no acute distress, alert and awake Nutritional Appearance: well nourished Orientation/consciousness: patient oriented x3 Limitations: no limitations HENMT Head: Yes normal to inspection and Yes atraumatic Ears: hearing grossly normal bilaterally and external ears normal General nose exam: Normal external nose present, no nasal discharge noted and no epistaxis Face and sinus: Yes normal facial exam, No abrasion and No laceration Mouth: Normal oral and palatal mucosa present, no drooling and no muffled voice Throat: Yes abnormal tonsil (bilateral erythema) Eyes General: appearance normal, both eyes and all related structures Periorbital: periorbital findings normal Eyelids: Yes eyelids normal Conjunctivae: conjunctivae normal Pupils: Equal, round and reactive pupils present EOM: EOMs intact bilaterally Neck Neck: Yes normal visual inspection, Yes full ROM and Yes no lymphadenopathy Chest Chest palpation & inspection: normal inspection of the chest Resp Effort & Inspection: normal respiratory effort and able to speak in complete sentences GI Inspection: Yes normal to inspection Neuro General: patient oriented x3 and moves all extremities Cranial nerves: Yes Equal, round and reactive pupils present Cognition (Neuro): normal cognition Motor exam (neuro): 5/5 motor strength present throughout Sensory Exam: Normal double simultaneous stimulation for sensation Coordination: [id number] test normal Extrem General: Yes normal to inspection, Yes full ROM and Yes capillary refill normal Psych Appearance: grossly normal Mental Status: mental status grossly normal Affect: normal affect Attitude: cooperative Thought process: Normal thought process present Thought content: Normal thought content present Insight: Good insight present (Psych) Medical Decision Making Medical Decision Making MDM Narrative: Patient is a 67 year old assigned male at with a history of HTN presenting to the emergency department today with a sore throat, headache, chills, and intermittent cough. Patient's physical exam was as noted in the physical exam portion of this note. Patient's COVID-19, influenza, and RSV tests were negative. Patient's strep test was positive. I explained my physical exam findings as well as all test results to the patient. I answered all questions asked by the patient. Patient has a very mild allergy to penicillins consisting of a rash from when he was a child. Patient willing to try Amoxicillin. I stressed the importance of the patient taking his medication as prescribed. I stressed the importance of the patient following up with his primary care provider. I stressed the importance of the patient returning to the emergency department immediately if his symptoms were to worsen or if he were to develop any dizziness, shortness of breath, difficulty breathing, chest pain, blurry vision, loss of vision, nausea, vomiting, abdominal pain, fever, chills, back pain, or any other complaints. Patient verbalized agreement and understanding with this treatment plan and discharge. Differential Diagnosis Differential Diagnoses: The differential diagnosis associated with the presentation includes COVID-19 Influenza RSV Viral illness Strep pharyngitis Admission/Observation Consideration of admission/observation: Escalation of care including admission/observation considered Patient would have been admitted to the hospital had his work up had any findings where hospital admission was appropriate and his clinical presentation warranted hospital admission. Lab Data [facility] Lab Attestation statement: I reviewed the patient's lab results. My interpretation of these results are in the [facility] Rationale portion of this note. Labs: Lab Results 09/14/23 Range/Units 23:19 COVID-19 (MILLIE) Negative (Negative) COVID-19 Clin Com See Note Influenza Type A (LAURO) Negative (Negative) Influenza Type B (LAURO) Negative (Negative) Influenza A & B Note See Note S. pyogenes GrpA LAURO Positive A (Negative) Prescription Management I considered prescription management with: Antibiotic (patient prescribed an antibiotic) Chronic Conditions Patient?s care impacted by: Hypertension Discharge Plan Discharge Clinical Impression: Strep pharyngitis Patient Disposition: Home, Self-Care Instructions: Strep Throat (DC) Additional Instructions: Take your antibiotic as prescribed. Follow up with your primary care provider. Return to the emergency department immediately if your symptoms worsen or if you develop any dizziness, shortness of breath, difficulty breathing, chest pain, blurry vision, loss of vision, nausea, vomiting, abdominal pain, fever, chills, back pain, or any other complaints. Prescriptions: New amoxicillin 500 mg tablet 500 mg PO BID 10 Days Qty: 20 0RF No Action terazosin 10 mg capsule 10 mg PO BEDTIME 90 Days Qty: 90 3RF hydrocodone-acetaminophen 5-325 mg tablet 1 tab PO Q4-6H PRN (Reason: pain) Qty: 30 0RF Rx Instructions: Partial Fill upon patient request. prednisone 20 mg tablet 40 mg PO DAILY 5 Days Qty: 10 0RF diphenhydramine HCl [Benadryl] 25 mg capsule 25 mg PO TID PRN (Reason: allergic reaction) Qty: 20 0RF epinephrine [EpiPen 2-Luther] 0.3 mg/0.3 mL auto-injector 0.3 mg IM Q4H PRN (Reason: anaphylaxis) Qty: 2 0RF celecoxib 200 mg capsule 200 mg PO DAILY oxycodone 5 mg tablet PO atorvastatin 40 mg tablet 40 mg PO DAILY omeprazole 20 mg capsule,delayed release(DR/EC) 20 mg PO BID PRN (Reason: Gastric Reflux) hydrocortisone 2.5 % cream topical BID cetirizine 10 mg tablet 10 mg PO DAILY meloxicam 15 mg tablet 15 mg PO DAILY lorazepam 0.5 mg tablet 0.5 mg PO BID PRN (Reason: Anxiety) fluoxetine 20 mg capsule 20 mg PO DAILY trazodone 50 mg tablet 50 mg PO BEDTIME PRN (Reason: Insomnia) gabapentin 600 mg tablet 600 mg PO TID finasteride 5 mg tablet 5 mg PO DAILY 90 Days Qty: 90 3RF Referrals: [facility] [place] Family Medicine [Provider Group] (Call to establish and follow up with a primary care provider. If you already have a primary care provider, please follow up with them.) [facility] Primary Care[facility] [Provider Group] [facility] Primary Care,[facility] [Provider Group] Print Language: Korean
[2023-09-15 07:17] VITALS: BP 120/81; PULSE 67; RESP 20; TEMP 36.6; O2SAT 96
[2023-09-15 07:50] VITALS: BP 130/83; PULSE 66; RESP 16; TEMP 37.1; O2SAT 96
[2023-09-15 08:00] VITALS: BP 130/83; PULSE 67; RESP 16; TEMP 37.1; O2SAT 96
== END 2023-09-15 08:01 | disposition home or self-care (01) ==
PROVIDERS: Emergency Provider Emergency Medicine
DX: J02.0 Streptococcal pharyngitis (principal); J45.909 Unspecified asthma, uncomplicated; I10 Essential (primary) hypertension; Z88.0 Allergy status to penicillin
CPT/HCPCS: 87502; 87635; 87651; 99283; 99284

== ENCOUNTER 2023-10-30 10:48 | Outpatient (REF) | payer OTHER, MEDICAID, SELFPAY ==
[2023-10-30 13:48] LABS: Alanine Aminotransferase 26 U/L (0-40); Albumin Level 4.3 g/dL (3.5-5.0); Alkaline Phosphatase 145 U/L (39-117); Anion Gap 10 (12-20); Aspartate Amino Transferase 27 U/L (5-37); Bilirubin Total 1.1 mg/dL (0.0-1.0); Blood Urea Nitrogen 22 mg/dL (9-16); Calcium 9.3 mg/dL (8.4-10.2); Carbon Dioxide 24 mmol/L (22-29); Chloride 111 mmol/L (96-108); Cholesterol 129 mg/dL (<200); Estimated Glomerular Filt Rate 55; Glucose Random 109 mg/dL (60-115); HDL Cholesterol 50 mg/dL (>40); LDL Cholesterol Calculated 61 mg/dL (<100); Potassium 4.6 mmol/L (3.3-5.1); Sodium 140 mmol/L (135-145); Total Protein 7.4 g/dL (6.5-8.0); Triglycerides 90 mg/dL (<150)
[2023-10-30 14:01] LABS: Prostate Specific Antigen 2.75 ng/mL (<0.05-4.0)
== END 2023-10-30 10:49 | disposition home or self-care (01) ==
LOC: HO.HHCL 10:48
PROVIDERS: Urology; Visit Provider Student in an Organized Health Care Education/Training Program
DX: Z12.5 Encounter for screening for malignant neoplasm of prostate (principal); E78.5 Hyperlipidemia, unspecified; N32.0 Bladder-neck obstruction
CPT/HCPCS: 36415; 80053; 80061; 84153

== ENCOUNTER 2023-11-02 09:30 | Emergency (ER) | payer OTHER, MEDICAID, SELFPAY ==
--- NOTE | ~2023-11-02 | XR_ITS ---
EXAMINATION: XR CHEST CLINICAL INFORMATION: Cough COMPARISON: 2018 TECHNIQUE: 2 views of the chest were obtained. FINDINGS: No significant abnormality is noted involving the heart, lungs, mediastinum, bony thorax or soft tissues. XR/XR chest 2V IMPRESSION: No radiographic evidence of acute pneumonia.
[2023-11-02 10:07] VITALS: BP 129/68; PULSE 50; RESP 18; TEMP 36.1; O2SAT 98; BMI 26.6
[2023-11-02 11:02] LABS: Influenza A PCR NEGATIVE (Negative); Influenza B PCR NEGATIVE (Negative); Resp Syncy Virus RNA Qual PCR NEGATIVE (Negative); SARS COV2 PCR INHOUSE NEGATIVE (Negative)
[2023-11-02 12:00] VITALS: BP 133/74; PULSE 50; TEMP 36.7; O2SAT 98
[2023-11-02 13:20] LABS: IDNOW Serial# 58CA691E; Strep A Nucleic Acid Negative (Negative)
--- NOTE | 2023-11-02 13:29 | ED.URI ---
HPI - URI/Sore Throat General Chief Complaint: Upper Respiratory Symptoms Stated Complaint: Sore throat/Congestion/sob Time Seen by Provider: 11/02/23 11:36 Source: patient, family, RN notes reviewed and old records reviewed Mode of arrival: ambulatory History of Present Illness ED Provider: Elvie Ward PA-C HPI Narrative: 67-year-old male with a past medical history depression, anxiety, prediabetic, asthma, HLD, HTN, presenting to the ED complaining of sore throat, dry cough, SOB x4 days. with similar symptoms. Denies fever/chills, chest pain, recent travel, pedal edema Related Data Home Medications ?Medication ?Instructions ?Recorded ?Confirmed atorvastatin 40 mg tablet 40 mg PO DAILY 07/04/21 07/02/23 cetirizine 10 mg tablet 10 mg PO DAILY 07/04/21 07/02/23 hydrocortisone 2.5 % topical cream appl topical BID 07/04/21 07/02/23 omeprazole 20 mg capsule,delayed 20 mg PO BID PRN Gastric Reflux 07/04/21 07/02/23 release celecoxib 200 mg capsule 200 mg PO DAILY 10/10/21 07/02/23 oxycodone 5 mg tablet mg PO 10/10/21 07/02/23 meloxicam 15 mg tablet 15 mg PO DAILY 01/03/22 07/02/23 fluoxetine 20 mg capsule 20 mg PO DAILY 07/01/22 07/02/23 gabapentin 600 mg tablet 600 mg PO TID 07/01/22 07/02/23 lorazepam 0.5 mg tablet 0.5 mg PO BID PRN Anxiety 07/01/22 07/02/23 trazodone 50 mg tablet 50 mg PO BEDTIME PRN Insomnia 07/01/22 07/02/23 Previous Rx's ?Medication ?Instructions ?Recorded hydrocodone 5 mg-acetaminophen 325 1 tab PO Q4-6H PRN pain #30 tabs 03/26/23 mg tablet finasteride 5 mg tablet 5 mg PO DAILY 90 days #90 tabs 07/02/23 terazosin 10 mg capsule 10 mg PO BEDTIME 90 days #90 caps 07/30/23 diphenhydramine HCl 25 mg capsule 25 mg PO TID PRN allergic reaction 08/18/23 (Benadryl) #20 caps epinephrine 0.3 mg/0.3 mL 0.3 mg (0.3 mL) IM Q4H PRN 08/18/23 injection, auto-injector (EpiPen anaphylaxis #2 ea 2-Luther) prednisone 20 mg tablet 40 mg (2 x 20 mg) PO DAILY 5 days 08/18/23 #10 tabs amoxicillin 500 mg tablet 500 mg PO BID 10 days #20 tabs 09/15/23 Allergies Allergy/AdvReac Type Severity Reaction Status Date / Time No Known Allergies Allergy Verified 11/02/23 10:09 Review of Systems Review of Systems: Constitutional: No Fever, No Chills ENT/Mouth: No Ear Pain, + Nasal Congestion, No Sinus Pain, No Hoarseness, + sore throat, + Rhinorrhea, No Swallowing Difficulty Cardiovascular: No Chest Pain, + SOB Respiratory: + Cough, No Sputum, No Wheezing Gastrointestinal: No Nausea, No Vomiting, No Diarrhea, No Constipation, No Abdominal pain Skin: No Skin Lesions, No rash Neuro: No Weakness Yes all other systems are reviewed and are negative Constitutional: Constitutional: Reports as per [facility] Past Medical History Attestation statement: The following information was validated with the patient. 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 Mother CVD (cardiovascular disease) Social History Social History Household Members: Spouse and Family Housing: House Are you a primary skin care instructor to a significant other at home: No Do you presently have visiting nurse or other home services: No Alcohol intake: never Patient Tobacco Use Status: Never used Tobacco Advance Directives: No Advance Directives Information Provided: Yes Physical Exam Vital Signs: Vital Signs: Last Vital Signs Temp 98.1 F 11/02/23 12:00 Pulse 50 11/02/23 12:00 Resp 18 11/02/23 10:07 BP 133/74 11/02/23 12:00 Pulse Ox 98 11/02/23 12:00 O2 Del Method Room Air 11/02/23 12:00 BMI result Body Mass Index 26.6 Const: General: cooperative, healthy appearing and no acute distress Orientation/consciousness: patient oriented x3 Limitations: no limitations HEENT: Head: Yes normal to inspection and Yes atraumatic Ears: hearing grossly normal bilaterally, external ears normal, TM's normal bilaterally and mastoids normal General nose exam: Normal external nose present Face and sinus: Yes normal facial exam Mouth: Normal oral and palatal mucosa present and no drooling Throat: Yes tonsils normal, Yes uvula midline, No peritonsillar mass and Yes posterior oropharynx abnormal (Mild erythema) Eyes: General: appearance normal, both eyes and all related structures EOM: EOMs intact bilaterally Neck: Neck: Yes normal visual inspection and Yes no meningeal signs Resp: Effort & Inspection: normal respiratory effort, not labored, no respiratory distress and no stridor Auscultation: clear to auscultation bilaterally, no rales and no wheezes Cardio: Rate: regular rate Heart sounds: S1 normal heart sound present and S2 normal heart sound present Skin: Rashes: no rashes Wounds: no wounds Neuro: General: patient oriented x3, tone normal and no meningeal signs Cranial nerves: Yes CN's II-XII intact bilaterally Gait exam (Neuro): Normal gait present Extrem: General: Yes normal to inspection Course Course Course Narrative: 1332--COVID/flu/RSV and rapid strep negative 1404--XR chest 2V IMPRESSION: No radiographic evidence of acute pneumonia. Results discussed with patient including worrisome signs and symptoms and strict return precautions, and when to return to the emergency department. They verbalized understanding and feel safe for discharge at this time. Medical Decision Making Medical Decision Making [facility] Narrative: 67-year-old male with a past medical history depression, anxiety, prediabetic, asthma, HLD, HTN, presenting to the ED complaining of sore throat, dry cough, SOB x4 days. On exam vital signs stable, NAD, nontoxic appearing, lungs CTA, oropharynx with mild posterior erythema, uvula midline, talking in complete sentences. Concern for viral illness vs bronchitis. Rule out pneumonia. Low suspicion for ACS/PE or otitis media/externa or [employer]/retropharyngeal abscess Plan: Viral testing, rapid strep, CXR Please refer to course for remaining clinical decision making, interpretation of labs/imaging results, and discussions with consultants and/or family members. Differential Diagnosis Differential Diagnoses: The differential diagnosis associated with the presentation includes As above Lab Data Labs: Lab Results 11/02/23 Range/Units 10:00 Influenza Type A (PCR) NEGATIVE (Negative) Influenza Type B (PCR) NEGATIVE (Negative) RSV RNA Qual (PCR) NEGATIVE (Negative) SARS-CoV-2 RNA (RT-PCR) NEGATIVE (Negative) S. pyogenes GrpA LAURO Negative (Negative) Independent Interpretation I performed an independent interpretation of an: Plain X-Ray Radiology Impression Discussion of test interpretation with radiology: I have reviewed the radiologist's reading. Independent Historian Clinical information obtained from an independent historian. History obtained from or confirmed by: Spouse External Record Review External record reviewed: Inpatient record, Office record, Outpatient record, Prior outpatient labs, Prior outpatient radiology, Primary care record and Outside ED record Tests considered The following testing was considered but not selected: As above Chronic Conditions Patient?s care impacted by: Hypertension Discharge Plan Discharge Clinical Impression: Upper respiratory infection Patient Disposition: Home, Self-Care Prescriptions: No Action terazosin 10 mg capsule 10 mg PO BEDTIME 90 Days Qty: 90 3RF hydrocodone-acetaminophen 5-325 mg tablet 1 tab PO Q4-6H PRN (Reason: pain) Qty: 30 0RF Rx Instructions: Partial Fill upon patient request. prednisone 20 mg tablet 40 mg PO DAILY 5 Days Qty: 10 0RF diphenhydramine HCl [Benadryl] 25 mg capsule 25 mg PO TID PRN (Reason: allergic reaction) Qty: 20 0RF epinephrine [EpiPen 2-Luther] 0.3 mg/0.3 mL auto-injector 0.3 mg IM Q4H PRN (Reason: anaphylaxis) Qty: 2 0RF amoxicillin 500 mg tablet 500 mg PO BID 10 Days Qty: 20 0RF celecoxib 200 mg capsule 200 mg PO DAILY oxycodone 5 mg tablet PO atorvastatin 40 mg tablet 40 mg PO DAILY omeprazole 20 mg capsule,delayed release(DR/EC) 20 mg PO BID PRN (Reason: Gastric Reflux) hydrocortisone 2.5 % cream topical BID cetirizine 10 mg tablet 10 mg PO DAILY meloxicam 15 mg tablet 15 mg PO DAILY lorazepam 0.5 mg tablet 0.5 mg PO BID PRN (Reason: Anxiety) fluoxetine 20 mg capsule 20 mg PO DAILY trazodone 50 mg tablet 50 mg PO BEDTIME PRN (Reason: Insomnia) gabapentin 600 mg tablet 600 mg PO TID finasteride 5 mg tablet 5 mg PO DAILY 90 Days Qty: 90 3RF Print Language: Libyan
[2023-11-02 14:21] VITALS: BP 133/74; PULSE 61; RESP 18; TEMP 36.7; O2SAT 98
== END 2023-11-02 14:22 | disposition home or self-care (01) ==
PROVIDERS: Emergency Provider Student in an Organized Health Care Education/Training Program; PCP Student in an Organized Health Care Education/Training Program
DX: J06.9 Acute upper respiratory infection, unspecified (principal); I10 Essential (primary) hypertension
CPT/HCPCS: 0241U; 71046; 87651; 99283

== ENCOUNTER → 2023-11-25 10:48 | Outpatient (REF) | payer OTHER, SELFPAY ==
--- NOTE | 2023-11-25 10:50 | CA_ITS ---
Transthoracic Echocardiogram Patient (Last, First, Middle): Hoang Pereira M Gender: Male Date of : 1955 Age: 67 Procedure Date: 11/25/2023 Procedure Type: Transthoracic Echocardiogram Location: OP Height: 157.48 cm Weight: 68.04 kg BSA: 1.69 m2 Heart Rate: bpm BP: 118 / 60 mmHg [employer] Consultant: Referring MD: Yecenia Morales MD Symptoms: R01.1 MURMUR Study Quality: Good ECG Rhythm: Sinus Conclusions: - Essentially normal study with mild fibrocalcific aortic valve changes Findings Left Ventricle Normal left ventricular size, thickness, and systolic function. The visually estimated ejection fraction is between 60-65%. Spectral Doppler is indicative of a normal filling pattern. Right Ventricle Normal right ventricular cavity size and systolic function. Atria Both atria are normal in size. There is lipomatous hypertrophy of the interatrial septum. There is no evidence of interatrial shunt. Aortic Valve There is mild calcification of the aortic valve. There is no aortic valve stenosis. There is no aortic valve regurgitation. Mitral Valve Normal mitral valve structure and function. There is trace mitral valve regurgitation. There is no mitral valve stenosis. Pulmonic Valve The pulmonic valve is likely normal. Tricuspid Valve Normal tricuspid valve structure. There is trace tricuspid valve regurgitation. The right ventricular systolic pressure is normal. The right ventricular systolic pressure is 24 mmHg. Normal right atrial pressure. There is no evidence of pulmonary hypertension. Great Vessels All visible segments of the aorta are normal in size. The pulmonary artery was not well visualized. There is no dilatation of the ascending aorta measuring 2.80 cm. Venous The inferior vena cava is normal in size and collapses greater than 50% with inspiration. Pericardium/Pleural There is no evidence of pericardial effusion. Prior Study Comparison No significant change compared to prior study. Measurements 2D Linear Measurements IVSd: 1.11 0.6-0.9/0.6-1.0 cm LVIDd: 4.08 3.9-5.3/4.2-5.9 cm LVIDd Index: 2.41 2.4-3.2/2.2-3.1 cm/m2 LVIDs: 2.23 2.0-3.6 cm LVPWd: 0.98 0.7-1.1 cm Ao Root: 3.00 2.1-3.5 cm LA Diam: 3.40 2.7-3.8/3.0-4.0 cm LAIDs Index: 2.01 1.5-2.3 cm/m2 LV Mass: 173.05 67-162/88-224 g LV Mass Index: 102.40 43-95/49-115 g/m2 LVOT Diam: 1.80 3.0+(-)1.3 cm 2D Systolic Function EF 4C: 65.40 >55% EF 2C: 57.20 >55% EF BiP: 59.60 >55% Mitral Valve MV Pk E: 0.89 MV PK A: 0.84 MV Decel Time: 184.00 E/A: 1.10 E'Lateral: 9.79 E'Medial: 9.03 E/E' Med: 9.80 E/E' Lat: 9.10 PHT: 54.00 MVA PHT: 4.07 Decel [place]: 4.83 Aortic Valve AoV Pk Dom: 1.70 AoV Pk Grad: 12.00 LVOT LVOT Pk Dom: 1.27 LVOT Mn Dom: 0.71 LVOT VTI: 0.30 LVOT Pk Grad: 6.00 LVOT Mn Grad: 3.00 LVOT Diam: 1.80 LVOT Area: 2.54 Diastolic Function MV Pk E: 0.89 MV Pk A: 0.84 E/A: 1.10 E'Medial: 9.03 E/E' Med: 9.80 E' Laterial: 9.79 E/E' Lat: 9.10 Right Ventricle TAPSE (mm): 29.00 TVS' Dom: 14.00 Tricuspid Valve TR Pk Dom: 2.28 TR Pk Grad: 21.00 RA Press: 3.00 RVSP: 24.00 Great Vessels Aorta Ao Root-2D: 3.00 2.0-3.7 cm Ao Asc: 2.80 2.1-3.4 cm Pulmonary Valve PV Pk Dom: 1.08 Peak PV Grad: 5.00 Updated in Other Vendor System with Status of Final Dwain Iniguez MD electronically signed on 11/25/2023 12:09:51 PM with status of Final
== END ==
LOC: HO.CARD 10:48
PROVIDERS: PCP Student in an Organized Health Care Education/Training Program; Visit Provider Student in an Organized Health Care Education/Training Program
DX: R01.1 Cardiac murmur, unspecified (principal)
CPT/HCPCS: 93306

== ENCOUNTER → 2023-11-25 10:50 | Outpatient (BNV) | payer OTHER, SELFPAY | PROVIDERS: PCP Student in an Organized Health Care Education/Training Program; Visit Provider Internal Medicine Cardiovascular Disease | DX: I35.8 Other nonrheumatic aortic valve disorders (principal) | CPT/HCPCS: 93306 ==

== ENCOUNTER 2024-01-19 15:51 | Outpatient (REF) | payer OTHER, SELFPAY ==
[2024-01-19 16:22] LABS: Appearance Urine Clear; Color Urine Dark Yellow; Glucose Urine UA Negative (Negative); Leukocyte Esterase Urine Negative (Negative); Nitrite Urine Negative (Negative); PH 5.5 (5.0-9.0); Specific Gravity - Urine 1.025 (1.005-1.025); UMIC TRIGGER UA YES; Urine Blood Trace (Negative); Urine Ketones Trace mg/dL (Negative); Urine Protein Negative (Neg-Trace)
[2024-01-19 16:26] LABS: Bacteria Urine None Seen (None Seen); Hyaline Casts Urine 0-2 /LPF (0-2); Squamous Epithelial Cell Urine 0-2 /HPF (0-2); WBC Urine 0-5 /HPF (0-5)
== END 2024-01-19 15:52 | disposition home or self-care (01) ==
LOC: HO.LAB 15:51
PROVIDERS: PCP Student in an Organized Health Care Education/Training Program; Visit Provider Urology
DX: R33.9 Retention of urine, unspecified (principal); N32.0 Bladder-neck obstruction
CPT/HCPCS: 81001; 87086

== ENCOUNTER 2024-01-28 08:48 | Outpatient (REF) | payer OTHER, SELFPAY ==
--- NOTE | ~2024-01-28 | MM_ITS ---
EXAMINATION: BONE DENSITOMETRY CLINICAL INDICATION: Encounter for screening for osteoporosis. COMPARISON: This is the patient's baseline examination. TECHNIQUE: Using a [employer] DXA System (software version: 13.1) manufactured by [employer], dual-energy x-ray absorptiometry was performed of the lumbar spine and left hip. The images are of good technical quality. Summary results are attached. FINDINGS: LEFT FEMUR, NECK: BMD 0.808 g/cm2, Z-score -0.6, T-score -2.0, osteopenia. LEFT FEMUR, TOTAL: BMD 0.835 g/cm2, Z-score -1.0, T-score -1.8, osteopenia. AP SPINE L1-L3 (excluding L4): The data of L1-L4 has been changed to exclude the L4 vertebral body, because metallic artifact at this level may cause overestimation of lumbar spine density. BMD 0.951 g/cm2, Z-score -1.3, T-score -2.2, osteopenia. IDENTIFIED RISK FACTORS: Low calcium intake, secondary osteoporosis, (hypogonadism). HISTORY OF FRACTURE: None listed. MEDICATIONS: None listed. MM/XR DEXA axial skeleton IMPRESSION: 1. DIAGNOSIS: Osteopenia based on the lowest T-score value of -2.2 in the lumbar spine applying World Health Organization criteria. 2. 10-YEAR FRACTURE RISK PREDICTION, FRAX: Major osteoporotic fracture (clinical spine, forearm, hip or shoulder) 4.4%. Hip fracture 1.0%. 3. Treatment Recommendations: NOF guidelines recommend consideration for treatment in postmenopausal women and men age 50 and older presenting with the following: -A hip or vertebral (clinical or morphometric) fracture. -T-score less than or equal to -2.5 at the femoral neck or spine after appropriate evaluation to exclude secondary causes. -Low bone mass at the hip or spine and a 10-year fracture probability by FRAX of greater than or equal to 3% for hip fracture or greater than or equal to 20% for major osteoporotic fracture based on the [place] adapted WHO algorithm. 4. Other Recommendations: All treatment decisions require clinical judgment and consideration of individual patient factors, including patient preferences, comorbidities, previous drug use, risk factors not captured in the FRAX model (e.g. frailty, falls, vitamin D deficiency, increased bone turnover, interval significant decline in bone density) and possible under or overestimation of fracture risk by FRAX. Additional medical evaluation for secondary cause of low bone mineral density may be appropriate. FUTURE SCAN RECOMMENDATION: People with diagnosed cases of osteoporosis or at high risk for fracture should have regular bone mineral density tests. For patients eligible for Medicare, routine testing is allowed once every 2 years. The testing frequency can be increased to one year for patients who have rapidly progressing disease, those who are receiving or discontinuing medical therapy to restore bone mass, or have additional risk factors. Electronically signed by: Buddy Moreland MD 02/03/2024 09:03 AM CINDYT KEVIN
== END 2024-01-28 08:49 | disposition home or self-care (01) ==
LOC: HO.MAMMO 08:48
PROVIDERS: PCP Student in an Organized Health Care Education/Training Program; Visit Provider Internal Medicine Endocrinology, Diabetes & Metabolism
DX: Z13.820 Encounter for screening for osteoporosis (principal); E23.0 Hypopituitarism; M85.852 Other specified disorders of bone density and structure, left thigh
CPT/HCPCS: 77080

== ENCOUNTER 2024-03-15 08:59 | Outpatient (AMB) | payer OTHER, SELFPAY ==
--- NOTE | 2024-03-15 09:28 | MHC.OFFVIS ---
Intake Visit Reasons: PVR/Medication Issues(Finasteride/Terazosin) Intake Note: Patient is Present for PVR/Med Review/PSA Urology Med: Finasteride, Terazosin Antibiotic Allergy:None Blood Thinner: None Last PVR: 0ml Todays PVR: 53 ml Recent PSA: 10/30/23 2.75 Patient states that he had stopped taking the Terazosin due to some side effects Patient reported that while he was on Terazosin he was having more frequency of urination, caused him to be very dizzy and states that he was having depression while on medication. He would like to discuss other medication options Dog License Officer Supervisor Required: Yes Dog License Officer Supervisor Language: Director Talent Acquisition Services: Dog License Officer Supervisor Present Information Interpreted: clinical only Accompanied by: Self / Same As Patient Allergies No Known Allergies Allergy (Verified 03/15/24 09:29) HPI Comments Details: Hoang is a pleasant male. He is a patient of Dr. Ford. He seen for the following urologic conditions - lower urinary tract symptoms Sami translation provided in office by qualified medical payment poster PVR today 50 cc Stopped terazosin because it made him dizzy Also stop finasteride Has had recurrence of weakness of stream Restart finasteride Six-month follow-up Lower urinary tract symptoms Progressive weakness of stream Knee replacement in September 2021 with urinary retention Current medications include finasteride and terazosin 10 mg PSA 06/30 1.0, 10/29 2.7 PFSH Medical History Depression Anxiety History of Helicobacter pylori infection BPPV (benign paroxysmal positional vertigo) Pre-diabetes BPH (benign prostatic hyperplasia) Asthma Elevated cholesterol 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 Mother CVD (cardiovascular disease) Social History Household Members: Spouse and Family Housing: House Are you a primary aged or disabled carer to a significant other at home: No Do you presently have visiting nurse or other home services: No Alcohol intake: never Patient Tobacco Use Status: Never used Tobacco Review of Systems Const Denies chills and Denies fever(s) Card Reports no additional complaints and Denies syncope Resp Denies cough GI Denies abdominal pain and Denies heartburn Reports as per HPI and Denies change in libido Neuro Denies syncope Psych Denies change in libido Endo Denies change in libido Physical Exam Const General: cooperative, healthy appearing, comfortable and no acute distress Orientation/consciousness: patient oriented x3 HEENT Face and sinus: Yes normal facial exam Mouth: moist mucous membranes Neck Neck: Yes normal visual inspection, Yes full ROM and Yes trachea midline Chest Chest palpation & inspection: normal inspection of the chest Resp Effort & Inspection: normal respiratory effort, able to speak in complete sentences and no respiratory distress GI Inspection: Yes normal to inspection Back/Spine/Pelvis Cervical Spine: normal cervical lordosis Thoracic/Lumbar Spine: thoracic and lumbar spine normal to inspection Skin General skin exam: no rashes or lesions noted Neuro General: patient oriented x3, gait normal, tone normal and moves all extremities Extrem General: Yes normal to inspection and Yes capillary refill normal Office Procedures Post Void Residual Post Residual Void Post Void Residual (PVR): 53 [id number] Void Residual by ultrasound Assessment & Plan Assessment & Plan (1) Urinary retention with incomplete bladder emptying: Code(s): R33.9 - Retention of urine, unspecified Category: Medical (2) Bladder outlet obstruction: Code(s): N32.0 - Bladder-neck obstruction Category: Medical Plan Restart finasteride Orders: Orders AMB Post Void Residual by ultrasound Today R33.9 - Retention of urine, unspecified Patient Instructions: Imaging studies, laboratory and physical exam results were discussed and reviewed in detail. No major barriers to patient understanding were identified. An opportunity to ask questions regarding the treatment plan was provided. All questions were answered. The patient expressed understanding and agreement with the above treatment plan. The patient is aware they should contact our office by phone for worsening of their current condition or the appearance of new urologic symptoms. Compliance is encouraged with any medications and followup testing that is ordered. It is a privilege to participate in the urologic care of your patient. If you have any questions or concerns regarding treatment for the above conditions, or other urologic issues, please do not hesitate to contact me. The office telephone contact is [phone]. This note is constructed using voice recognition software. While every effort has been made to ensure accuracy security sales manager errors may have been included. Yours sincerely, Dr Jens Abdullahi MD, [facility] - Urology Providers of Expert, Compassionate Care for the Genitourinary System Coding Level of Care Code Est Pt Level 3 (09796) Diagnoses Urinary retention with incomplete bladder emptying R33.9 Bladder outlet obstruction N32.0 CPT Codes Post Residual Void - PVR CPT Code: 30378-Kdim Void Residual by ultrasound ([id number])
== END 2024-03-15 10:27 | disposition home or self-care (01) ==
PROVIDERS: PCP Student in an Organized Health Care Education/Training Program; Visit Provider Urology
DX: R33.9 Retention of urine, unspecified (principal); N32.0 Bladder-neck obstruction
CPT/HCPCS: 99213

== ENCOUNTER → 2024-03-15 08:59 | Outpatient (BNVA) | payer OTHER, SELFPAY | PROVIDERS: PCP Student in an Organized Health Care Education/Training Program; Visit Provider Urology | DX: R33.9 Retention of urine, unspecified (principal); N32.0 Bladder-neck obstruction | CPT/HCPCS: 51798; 99212 ==

== ENCOUNTER 2024-05-10 08:54 | Outpatient (REF) | payer OTHER, SELFPAY ==
[2024-05-10 11:35] LABS: Hemoglobin 15.9 g/dl (14.0-18.0); Mean Corpuscular HGB Conc 33.1 g/dl (31.0-36.0); Mean Corpuscular Hemoglobin 30.5 pg (27.0-33.0); Mean Corpuscular Volume 92.1 fL (80.0-98.0); Mean Platelet Volume 9.1 fL (9.4-12.4); Platelet Count 315 X10*3/uL (160-400); Red Blood Count 5.21 X10*6/uL (4.60-5.80); Red Cell Distribution Width 13.2 % (11.0-16.0); White Blood Count 7.1 X10*3/uL (4.8-10.8)
[2024-05-10 11:50] LABS: Estimated Average Glucose 114 mg/dL; Hemoglobin A1C 151.8411 umol/L; Hemoglobin A1c % 5.6 % (<6.0); Total Hemoglobin (HGBA1C) 3997.4472 umol/L
[2024-05-10 11:54] LABS: Creatinine Urine 108.19 mg/dL; Microalbum/Creatinine Ratio Ur 9.2 ug/mg cr (<30)
[2024-05-10 12:13] LABS: Prostate Specific Antigen 4.27 ng/mL (<0.05-4.0)
[2024-05-10 12:14] LABS: Syphilis Screen Nonreactive (Nonreactive)
[2024-05-10 12:16] LABS: HBS Num1 0.54 mIU/mL (0-7.99); HBc Num1 0.18 S/CO (0.00-0.79); HBsAGNum1 0.59 S/CO (0.00-0.99); HIV AB/AG Nonreactive (Nonreactive); HIV Num 1 0.68 S/CO (0.00-0.99); Hepatitis B Core Antibody Nonreactive (Nonreactive); Hepatitis B Surface Antigen Negative (Negative); ~HepC Num1 0.13 S/CO (0.00-0.79); ~Hepatitis B Surface Antibody NONREACTIVE (Nonreactive); ~Hepatitis C Antibody Nonreactive (Nonreactive)
[2024-05-10 12:19] LABS: Albumin Level 4.3 g/dL (3.5-5.0); Alkaline Phosphatase 164 U/L (39-117); Anion Gap 10 (12-20); Aspartate Amino Transferase 30 U/L (5-37); Bilirubin Total 0.9 mg/dL (0.0-1.0); Blood Urea Nitrogen 16 mg/dL (9-16); Calcium 9.1 mg/dL (8.4-10.2); Carbon Dioxide 26 mmol/L (22-29); Chloride 108 mmol/L (96-108); Cholesterol 242 mg/dL (<200); Estimated Glomerular Filt Rate > 60; Glucose Random 106 mg/dL (60-115); HDL Cholesterol 46 mg/dL (>40); LDL Cholesterol Calculated 171 mg/dL (<100); Potassium 4.1 mmol/L (3.3-5.1); Sodium 140 mmol/L (135-145); Total Protein 7.4 g/dL (6.5-8.0); Triglycerides 129 mg/dL (<150)
[2024-05-10 12:21] LABS: TSH reflex Free T4 1.13 uIU/mL (0.32-4.0)
[2024-05-10 12:35] LABS: Alanine Aminotransferase 31 U/L (0-40)
[2024-05-10 13:34] LABS: CT PCR NOT DETECTED (Not Detect.); NG PCR NOT DETECTED (Not Detect.)
== END 2024-05-10 08:55 | disposition home or self-care (01) ==
LOC: HO.HHCL 08:54
PROVIDERS: Visit Provider Student in an Organized Health Care Education/Training Program
DX: Z11.3 Encounter for screening for infections with a predominantly sexual mode of transmission (principal); I10 Essential (primary) hypertension; N40.1 Benign prostatic hyperplasia with lower urinary tract symptoms; R35.0 Frequency of micturition; Z12.5 Encounter for screening for malignant neoplasm of prostate; Z13.1 Encounter for screening for diabetes mellitus
CPT/HCPCS: 80053; 80061; 82043; 82570; 83036; 84153; 84443; 85027; 86704; 86706; 86780; 86803; 87340; 87389; 87491; 87591

== ENCOUNTER 2024-09-14 10:26 | Outpatient (AMB) | payer OTHER, SELFPAY ==
--- NOTE | 2024-09-14 10:35 | A.OFFVIS_ITS ---
Intake Visit Reasons: 6m/PVR Intake Note: Patient is present for 6M/PVR Urology Medication:FINASTERIDE Antibiotic Allergy:NONE Blood Thinner:NONE TODAY'S PVR:13ML'S Celery Stripper Required: No Allergies No Known Allergies Allergy (Verified 09/14/24 10:36) HPI Comments Details: Hoang is a pleasant male. He is a patient of Dr. Ford. He seen for the following urologic conditions - lower urinary tract symptoms Hungarian translation provided in office by qualified medical physics teacher PVR 13 cc [place] finasteride Stopped terazosin because it made him dizzy Six-month follow-up with bladder ultrasound Lower urinary tract symptoms Progressive weakness of stream Knee replacement in September 2021 with urinary retention Current medications include finasteride and terazosin 10 mg PSA 06/30 1.0, 10/29 2.7, 05/31 4.3 PFSH Medical History Depression Anxiety History of Helicobacter pylori infection BPPV (benign paroxysmal positional vertigo) Pre-diabetes BPH (benign prostatic hyperplasia) Asthma Elevated cholesterol 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 Mother CVD (cardiovascular disease) Social History Household Members: Spouse and Family Housing: House Are you a primary adult day care worker to a significant other at home: No Do you presently have visiting nurse or other home services: No Alcohol intake: never Patient Tobacco Use Status: Never used Tobacco Review of Systems Const Denies chills and Denies fever(s) Card Reports no additional complaints and Denies syncope Resp Denies cough GI Denies abdominal pain and Denies heartburn Reports as per HPI and Denies change in libido Neuro Denies syncope Psych Denies change in libido Endo Denies change in libido Physical Exam Const General: cooperative, healthy appearing, comfortable and no acute distress Orientation/consciousness: patient oriented x3 HEENT Face and sinus: Yes normal facial exam Mouth: moist mucous membranes Neck Neck: Yes normal visual inspection, Yes full ROM and Yes trachea midline Chest Chest palpation & inspection: normal inspection of the chest Resp Effort & Inspection: normal respiratory effort, able to speak in complete sentences and no respiratory distress GI Inspection: Yes normal to inspection Back/Spine/Pelvis Cervical Spine: normal cervical lordosis Thoracic/Lumbar Spine: thoracic and lumbar spine normal to inspection Skin General skin exam: no rashes or lesions noted Neuro General: patient oriented x3, gait normal, tone normal and moves all extremities Extrem General: Yes normal to inspection and Yes capillary refill normal Office Procedures Post Void Residual Post Residual Void Post Void Residual (PVR): 13 [id number] Void Residual by ultrasound Results AMB Urinalysis, Automated UA Leukoctes 0 Ligia/uL Last Edit by Javon Jalloh CCM on 09/14/24 10:41 UA Nitrite Negative Last Edit by Javon Jalloh CCM on 09/14/24 10:41 UA Urobilinogen 0.2 mg/dL Last Edit by Javon Jalolh CCM on 09/14/24 10:4 1 UA Protein 30 mg/dL Last Edit by Javon Jalloh CCM on 09/14/24 10:41 UA pH 6.0 Last Edit by Javon Jalloh CCM on 09/14/24 10:41 UA Blood 200 Chris/uL Last Edit by Javon Jalloh CCM on 09/14/24 10:41 UA Specific [place] 1.025 Last Edit by SUPA Pandey on 09/14/24 10: 41 UA Ketone Negative Last Edit by Javon Jalloh CCM on 09/14/24 10:41 UA Bilirubin 0 mg/dL Last Edit by Javon Jalloh CCM on 09/14/24 10:41 UA Glucose 0 mg/dL Last Edit by Javon Jalloh CCM on 09/14/24 10:41 Results Reviewed Results Reviewed: Laboratory Last Values Urine pH (Auto) 6.0 09/14/24 10:40 Specific [place] (Auto) 1.025 09/14/24 10:40 Urine Protein (Auto) 30 mg/dL 09/14/24 10:40 Glucose (UA)(Auto) 0 mg/dL 09/14/24 10:40 Urine Ketones (Auto) Negative 09/14/24 10:40 Urine Blood (Auto) 200 Chris/uL 09/14/24 10:40 Urine Nitrite (Auto) Negative 09/14/24 10:40 Urine Bilirubin (Auto) 0 mg/dL 09/14/24 10:40 Urine Urobilinogen (Auto) 0.2 mg/dL 09/14/24 10:40 Leukocyte Esterase (Auto) 0 Ligia/uL 09/14/24 10:40 Assessment & Plan Assessment & Plan Orders: Orders AMB Urinalysis Automated Today Z13.9 - Encounter for screening, unspecified Prostate Specific Antigen 6 Months N32.0 - Bladder-neck obstruction US bladder 6 Months N32.0 - Bladder-neck obstruction, R39.12 - Poor urinary stream Coding CPT Codes Post Residual Void - PVR CPT Code: 58268-Orfn Void Residual by ultrasound ([id number])
--- OUTSIDE RECORDS SUMMARY | 2024-09-14 11:54 | XMS_ITS | Clinical Summary ---
Author Organization [employer] Address [address] [facility] [address] [place] [address] Care Team Providers Care Burn Out Scarfing Operator Name Role Phone Yecenia Hopper MD Primary Care Pro vider Allergies Active Allergy Reactions Criticality Noted Date Comments Latex Itching Low 10/31/2022 Medications finasteride (Proscar) 5 MG tablet Take 1 tablet by mouth 1 (one) time each day. 09/26/19 22 Active FLUoxetine (PROzac) 20 MG capsule Take 20 mg by mouth in the morning. 09/28/19 23 Active LORazepam (Ativan) 0.5 MG tablet Take 0.5 mg by mouth if needed in the morning and at bedtime. 10/17/19 23 Active meloxicam (Mobic) 15 MG tabletIndicatio ns:Cervical paraspinal muscle spasm,Arthritis of both knees TAKE 1 TABLET(15 MG) BY MOUTH IN THE MORNING 30 tablet 1 04/22/20 23 Active acetaminophen (Tylenol 8 Hour) 650 MG ER tabletIndicatio ns:Cervical paraspinal muscle spasm Take 2 tablets (1,300 mg) by mouth every 8 (eight) hours. take 2 tablet by oral route every 8 hours as needed swallowing whole with water. Do not break, crush, dissolve and/or chew. 120 tablet 04/22/20 23 Active Glycerin-Hyprom ellose-PEG 400 0.2-0.2-1 % solution Administer 1 drop into affected eye(s) every 6 (six) hours if needed (eye tearing). 15 mL 07/07/19 24 Active Fluocinolone Acetonide Scalp ([place]en-Smoothe/ FS Scalp) 0.01 % oilIndications: Sebopsoriasis Apply at night with head cover 2 times weekly 118.28 mL 2 10/02/19 24 Active albuterol 108 (90 Base) MCG/ACT inhaler Inhale 2 puffs every 6 (six) hours if needed for wheezing. 18 g 1 11/05/19 24 025 Active fexofenadine (Monisha) 180 MG tabletIndicatio ns:Urticaria Take 1 tablet (180 mg) by mouth Once per day. 30 tablet 2 03/22/20 24 Active Clobetasol Propionate 0.05 % shampooIndicati ons:Sebopsorias is Use 2-3 times weekly 118 mL 03/25/20 24 Active ketoconazole (NIZOral) 2 % shampoo Apply topically 2 (two) times a week. 120 mL 11 05/19/20 24 Active betamethasone, augmented, (Diprolene) 0.05 % ointmentIndicat ions:Sebopsoria sis APPLY TOPICALLY TO THE AFFECTED AREA TWICE DAILY FOR UP TO 4 WEEKS 45 g 05/25/20 24 Active ketoconazole (NIZOral) 2 % creamIndication s:Sebopsoriasis Apply topically 2 times daily. 60 g 1 06/10/19 25 Active gabapentin (Neurontin) 600 MG tabletIndicatio ns:Chronic bilateral low back pain without sciatica TAKE 1 TABLET BY MOUTH THREE TIMES DAILY 90 tablet 2 07/04/19 25 Active atorvastatin (Lipitor) 40 MG tabletIndicatio ns:Hypertension , unspecified type TAKE 1 TABLET(40 MG) BY MOUTH IN THE MORNING 90 tablet 1 08/03/19 25 Active meclizine (Antivert) 25 MG tablet TAKE 1 TABLET BY MOUTH IN THE MORNING, AT NOON, AND AT BEDTIME IF NEEDED FOR DIZZINESS 30 tablet 2 08/11/19 25 Active famotidine (Pepcid) 20 MG tablet TAKE 1 TABLET(20 MG) BY MOUTH AT BEDTIME NEEDED FOR HEARTBURN 90 tablet 09/01/19 25 Active amLODIPine (Norvasc) 5 MG tablet TAKE 1 TABLET(5 MG) BY MOUTH DAILY 90 tablet 09/01/19 25 Active famotidine (Pepcid) 20 MG tablet TAKE 1 TABLET(20 MG) BY MOUTH AT BEDTIME NEEDED FOR HEARTBURN 90 tablet 06/06/20 24 025 Discontinued amLODIPine (Norvasc) 5 MG tablet TAKE 1 TABLET(5 MG) BY MOUTH DAILY 90 tablet 06/06/20 24 025 Discontinued Active Problems Problem Noted Date Diagnosed Date Cardiac murmur 11/06/2023 Elevated alkaline phosphatase level 05/26/2023 Epigastric pain 04/06/2023 Overview (07/07/2023): Epigastric pain Resolved -03/2023 H pylori neg UBT off PPIs -famotidine prn -states taking sporadically -if needs more freq will refer to GI Dermatitis 10/31/2022 Overview (10/31/2022): Treat with Clobetasol cream for 1 week, and eucerin cream after showers. Discussed avoiding hot showers. Assessment & Plan (10/31/2022 6:17 PM EDT): Previously treated with Clobetasol cream to good effect. Refilled Clobetasol cream. Patient to RTC PRN if symptoms worsen or fail to improve. Routine adult health maintenance 10/31/2022 Assessment & Plan (10/31/2022 6:25 PM EDT): PHQ: 6 Smoking status: denies smoking, drug use, ETOH Lipids: ordered. Colonoscopy: 2016, patient reports that he does not need repeat for 10 years. I do not have documentation to corroborate this. Vacc.: pneumococcal. Eye exam: June, glasses working well Dental home: more than a year, [facility] dental, advised patient to make appointment on 4th floor. 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 Per pt home BP always below 140/90 and he stopped taking Finasteride, which could help controlling BP. Pt will take Rx again and will continue to monitor BP at home. Will follow w PCP in 4 wk to f BP Depression, recurrent 01/22/2015 Overview (10/30/2022): COSSMA Assessment & Plan (01/24/2023 12:42 PM EDT): Pt w Hx of depression on Fluoxetine, f w psychiatrist. States feeling stable, denies SI. -Continue care w specialist. -Taking antidepressants. Intermittent asthma 01/22/2015 Overview (10/30/2022): COSSMA Resolved Problems Problem Noted Date Diagnosed Date Resolved Date Penicillin allergy 04/06/2023 BPPV (benign paroxysmal positional vertigo) 03/03/2023 05/26/2023 Inguinal hernia 03/03/2023 04/06/2023 Prostatitis 01/22/2015 11/14/2022 Overview (10/30/2022): COSSMA Assessment & Plan (10/31/2022 6:19 PM EDT): Patient is asymptomatic Encounters Date Type Department Care Team Description 09/14/2024 Telephone [facility] [address] [place] [address] Yecenia Hopper MD Skin Problem 08/31/2024 Refill [facility] [address] [place] [address] Dora Plaza MD 08/10/2024 Refill [facility] [address] [place] [address] Yecenia Hopper MD 08/03/2024 Refill [facility] [address] [place], [place] [phone] Yecenia Hopper MD Hypertension, unspecified type 07/14/2024 Telephone [facility] [address] [place], [place] [phone] Rhina Tafoya GUS September07/02/2024 Refill [facility] [address] [place], [place] [phone] Yecenia Hopper MD Chronic bilateral low back pain without sciatica from Last 3 Months Immunizations Name Administration Dates Next Due Influenza High-dose Quadriva lent Preservative Free 03/05/2022,03/28/2021 Influenza, High Dose Seasona l, Preservative Free 03/22/2024 Pfizer Covid-19 Vaccine 12+ 03/22/2024,0 07/07/2023,03/07/2021,2020 Pfizer Covid-19 Vaccine 12+ chuy-sucrose (Gil Cap) 11/05/2021,09/04/2020 Pneumococcal Conjugate PCV 13 09/18/2021 Pneumococcal Conjugate PCV 20 10/31/2022 Tdap 09/18/2021 Zoster, Recombinant 03/05/2022,12/24/2021 Family History Medical History Relation Name Comments DM2 Brother DM2 Father Glaucoma Neg Hx Relation Name Status Comments Brother Father Social History Tobacco Use Types Packs/Day Years Used Date Smoking Tobacco: Never Smokeless Tobacco: Never Tobacco Cessation:Counseling Given: Not Answered Alcohol Use Standard Drinks/Week Comments Never 0 (1 standard drink = 0.6 oz pur e alcohol) Depression Answer Date Recorded Patient Health Questionnaire-9 Score 5 03/22/2024 Patient Health Questionnaire-9 Score 5 03/22/2024 Last PHQ-9: Questionnaire Data Not on file 1 Housing Stability Answer Date Recorded What is your housing situation today? I have nilscindy villalobos 03/26/[address] you li ve. Do you have problems with any of the following? None of the above 03/26/2023 Food Insecurity Answer Date Recorded Within the past 12 months, y ou worried that your food would run out before you got money to buy more: Never True 03/26/2023 Within the past 12 months,th e food you bought just didn't last and you didn't have enough money to get more: Never True Transportation Answer Date Recorded In the past 12 months, has l ack of transportation kept you from medical appts, meetings, work or from getting things needed for daily living? No 03/26/2023 Utilities Answer Date Recorded In the past 12 months, has t he electric, gas, oil or water company threatened to shut off services in your home? No 03/26/2023 Depression Answer Date Recorded Patient Health Questionnaire-2 Score 2 03/22/2024 Sex and Gender Information Value Date Recorded Sex Assigned at Male 04/07/2022 10:39 AM EDT Legal Sex Male 10:39 AM EDT Gender Identity Male 04/07/2022 10:39 AM EDT Sexual Orientation Choose not to disclose 2021 10:39 AM EDT Last Filed Vital Signs Vital Sign Reading Time Taken Comments Blood Pressure 140/80 03/25/2024 1:52 PM EDT Pulse 72 03/25/2024 1:52 PM EDT Temperature 36.3 ??C (97.3 ??F) 03/25/2024 1:52 PM ED T Respiratory Rate 14 03/25/2024 1:52 PM EDT Oxygen Saturation 98% 03/22/2024 11:32 AM EDT Inhaled Oxygen Concentration - - Weight 66.5 kg (146 lb 9.6 oz) 03/25/2024 1:52 P M EDT Height 160 cm (5' 3 ) 03/22/2024 11:32 AM EDT Body Mass Index 25.97 03/22/2024 11:32 AM EDT Plan of Treatment Upcoming Encounters Date Type Department Care Team (Late st Contact Info) Description 09/21/2024 11:00 AM EDT Office Visit [facility] [address] [place] [address] Sudhakar, Meghan, OD [address] [place] [address] 09/27/2024 9:00 AM EDT Office Visit [facility] [address] [place] [address] Yecenia Hopper MD [address] [place] [phone] Health Maintenance Due Date Last Done Comments CT Colonography 1955 FIT DNA/Cologuard 1955 FIT 1955 FOBT 1955 Sigmoidoscopy 1955 Alcohol/Substance Use Screening 1967 RSV Patients and Patients Aged 60 years or older (1 - Risk 60-74 years 1-dose series) 2015 SDOH Screening 09/28/2024 09/29/2023 Depression Screening 03/22/2025 03/22/2024, 03/22/20 24 Tobacco Screening 03/22/2025 03/22/2024 Colonoscopy 06/08/2026 06/08/2016 Colorectal Cancer Screening 06/08/2026 Lipid Panel 05/10/2029 05/10/2024, 10/07, 04/06/2023, Additional history exists DTaP/Tdap/Td Vaccines (2 - Td or Tdap) 09/19/2031 09/18/2021 Zoster Vaccines Completed 03/05/2022, 12/24/2021 Pneumococcal Vaccine: 50+ Years Completed 10/31/2022, 09/18/2021 COVID-19 Vaccine Completed 03/22/2024, , 04/22/2022, Additional history exists Influenza Vaccine Completed 03/22/2024, , 03/28/2021 Hepatitis C Screening Completed 05/10/2024 , 04/06/2023, 10/31/2022, Additional history exists HIB Vaccines Aged Out No longer eligi ble based on patient's age to complete this topic HPV Vaccines Aged Out No longer eligi ble based on patient's age to complete this topic Hepatitis A Vaccines Aged Out No long er eligible based on patient's age to complete this topic Hepatitis B Vaccines Aged Out No long er eligible based on patient's age to complete this topic IPV Vaccines Aged Out No longer eligi ble based on patient's age to complete this topic Meningococcal Vaccine Aged Out No nini zak eligible based on patient's age to complete this topic RSV under 20 months Aged Out No longe r eligible based on patient's age to complete this topic Rotavirus Vaccines Aged Out No longer eligible based on patient's age to complete this topic Procedures Procedure Name Priority Date/Time Associated Diagnosis Comments HEPATITIS C AB W/REFL TO HCV RNA, QN, PCR Routine 05/10/2024 9:00 AM EST Encounter for screening examination for sexually transmitted disease LIPID PANEL, STANDARD Routine 05/10/2024 9:00 AM EST Essential hypertension HM COLONOSCOPY Routine 06/08/2016 from Last 3 Months or Most Recently Relevant to Health Maintenance Results * Hepatitis C Antibody with Reflex to HCV, RNA, Quantitative, Real-Time PCR (05/10/2024 9:00 AM EST) Hepatitis C Antibody Nonreactive Nonreactive [facility] Comment:Antibodies to HCV no t detected; does not exclude early acuteHCV infection. Blood Venous blood specimen / Unknown 05/10/2024 9:00 AM EST 05/10/2024 11:08 AM EST us Yecenia Morales MD LAB BLOOD ORDERAB LES Final Result [facility] [address] [place] [phone] * (ABNORMAL) Lipid Panel, Standard (05/10/2024 9:00 AM EST) Triglycerides 129 <150 mg/dL [facility] Comment:Desirable Triglyceri de: less than 150 mg/dLBorderline High Triglyceride 150-199 mg/dLHigh Triglyceride: 200-499 mg/dLVery High Triglyceride: greater than or equal to 5OO mg/dL Cholesterol 242(H) <200 mg/dL [facility] Comment:Desirable Cholestero l: less than 200 mg/dLBorderline High Cholesterol: 200-239 mg/dLHigh Cholesterol: greater than 239 mg/dL LDL Cholesterol Calculated 171(H) <100 mg/dL [facility] Comment:Desirable LDL: less than 100 mg/dLNear Optimal/Above Optimal LDL: 110- 129 mg/dLBorderline High LDL: 130-159 mg/dLHigh LDL: 160-189 mg/dLVery High LDL: greater than or equal to 190 mg/dL HDL Cholesterol 46 >40 mg/dL [facility] Comment:Desirable HDL: great er than 40 mg/dL Note: This HDL assay may give artificially low results in patients with liver disease. Blood Venous blood specimen / Unknown 05/10/2024 9:00 AM EST 05/10/2024 11:31 AM EST Yecenia Morales MD LAB BLOOD ORDERAB LES Final Result [facility] [address] [place] [phone] * Colonoscopy (06/08/2016) Colonoscopy Normal Normal Comment:Repeat in 10 Years 06/08/2016 Historical Provider HEALTH MAINTENANCE Final Result from Last 3 Months or Most Recently Relevant to Health Maintenance Insurance [employer] Care Teams Burn Out Scarfing Operator Relationship Specialty Start Date End Date Yecenia Hopper MD [address] [place] [phone] PCP - General Internal Medicine 02/17/23
--- OUTSIDE RECORDS SUMMARY | 2024-09-14 11:54 | XMS_ITS | Encounter Summary ---
Author Organization [employer] Address [address] [facility] 7[address] [place] [address] Care Team Providers Care Senior Water/Wastewater Engineer Name Role Phone Yecenia Hopper MD Primary Care Pro vider Encounter Details Date Type Department Care Team (Late st Contact Info) Description 05/17/2024 Orders Only [facility] [address] [place], [place] [phone] Damari Gonsalez MD [address] [place] [address] Social History Tobacco Use Types Packs/Day Years Used Date Smoking Tobacco: Never Smokeless Tobacco: Never Alcohol Use Standard Drinks/Week Comments Never 0 (1 standard drink = 0.6 oz pur e alcohol) Depression Answer Date Recorded Patient Health Questionnaire-9 Score 5 03/22/2024 Patient Health Questionnaire-9 Score 5 03/22/2024 Last PHQ-9: Questionnaire Data Not on file 1 Housing Stability Answer Date Recorded What is your housing situation today? I have nils villalobos 03/26/[address] you [...] not to disclose 2021 10:39 AM EDT documented as of this encounter Plan of Treatment Upcoming Encounters Date Type Department Care Team (Late st Contact Info) Description 09/21/2024 11:00 AM EDT Office Visit [facility] OPT[facility] [address] [place] [address] Sudhakar, Meghan, OD [address] [place] [address] 09/27/2024 9:00 AM EDT Office Visit [facility] [address] [place] [address] Yecenia Hopper MD [address] [place] [address] documented as of this encounter Visit Diagnoses Not on filedocumented in this encounter Additional Health Concerns Assessment Noted Time PHQ-9 Depression Total Score: 5 03/22/20 24 11:33 AM EDT documented as of this encounter Care Teams Senior Water/Wastewater Engineer Relationship Specialty Start Date End Date Yecenia Hopper MD [address] [place] [phone] PCP - General Internal Medicine 02/17/23 documented as of this encounter
--- OUTSIDE RECORDS SUMMARY | 2024-09-14 11:54 | XMS_ITS | Clinical Summary ---
Author Organization [facility] Address [address] [facility] [address] [place] [address] Phone Care Team Providers Care Water Taxi Boat Mate Name Role Phone Lisy Ford RN Primary Care Provider Unavaila ble Allergies Active Allergy Reactions Criticality Noted Date Comments Penicillins Hives,Rash Low 01/22/2015 COSSMA Medications amLODIPine (NORVASC) 10 MG tablet Take 10 mg by mouth 1 (one) time each day 2 Active aspirin 325 MG tablet TAKE 1 TABLET BY MOUTH TWICE DAILY FOR 30 DAYS. MEDICATION TO BE STARTED AFTER SURGERY. 2 Active atorvastatin (LIPITOR) 40 MG tablet Take 40 mg by mouth 1 (one) time each day 2 Active Blood Pressure Monitoring (Omron 3 Series BP Monitor) device USE TO CHECK BLOOD PRESSURE DAILY, CALL DOCTOR IF systolic >170 AND diastolic >100 2 Active finasteride (PROSCAR) 5 MG tablet TAKE 1 TABLET BY MOUTH EVERY DAY FOR BPH 2 Active fluticasone (FLONASE) 50 MCG/ACT nasal spray Administer 1 spray into affected nostril(s) Active gabapentin (NEURONTIN) 300 MG capsule Take 300 mg by mouth in the morning and 300 mg at noon and 300 mg in the evening. 2 Active loratadine (CLARITIN) 10 MG tablet Take 10 mg by mouth Active oxyCODONE (ROXICODONE) 5 MG immediate release tablet TAKE 1 TO 2 TABLETS BY MOUTH EVERY 6 HOURS NEEDED FOR PAIN DIRECTED. DO NOT DRIVE WHILE TAKING THIS MEDICATION 2 Active tamsulosin (FLOMAX) 0.4 MG 24 hr capsule TAKE 1 CAPSULE BY MOUTH EVERY DAY 30 MINUTES AFTER THE SAME MEAL 2 Active traMADol (ULTRAM) 50 MG tablet AYESHA 1 A 2 TABLETAS POR LA BOCA CADA 6 HORAS CUANDO SE NECESARIO PARA EL DOLOR LEVE. NO AYESHA MAS DE 8 TABLETAS (400MG) [place]. 2 Active omeprazole (PriLOSEC) [address] capsule Take 20 mg by mouth 1 (one) time each day Do not crush or chew. 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 Overview (10/15/2021): COSSMA Depressive disorder 01/22/2015 Overview (10/15/2021): COSSMA Essential hypertension 01/22/2015 Overview (10/15/2021): C[facility] Intermittent asthma 01/22/2015 Overview (10/15/2021): [facility] Peripheral vascular disease 01/22/2015 Overview (10/15/2021): [facility] Prostatitis 01/22/2015 Overview (10/15/2021): COSSMA Social History Tobacco Use Types Packs/Day Years Used Date Smoking Tobacco: Never Smokeless Tobacco: Never Alcohol Use Standard Drinks/Week Comments Not Currently 0 (1 standard drink = 0.6 oz pur e alcohol) Sex and Gender Information Value Date Recorded Sex Assigned at Not on file Legal Sex Male 2:49 PM EDT Gender Identity Not on file Sexual Orientation Not on file Last Filed Vital Signs Vital Sign Reading Time Taken Comments Blood Pressure 120/60 10/15/2021 4:13 PM EDT Pulse 79 10/15/2021 4:13 PM EDT Temperature - - Respiratory Rate - - Oxygen Saturation 98% 10/15/2021 4:13 PM EDT Inhaled Oxygen Concentration - - Weight 65.1 kg (143 lb 9.6 oz) 10/15/2021 4:13 P M EDT Height - - Body Mass Index - - Plan of Treatment Health Maintenance Due Date Last Done Comments Pneumococcal Vaccine: 65+ Ye ars (1 of 2 - PCV) 12[birth year]17/1961 Colorectal Cancer Screening: Annual FOBT 12/17/2004 Colorectal Cancer Screening: Colonoscopy 12/17/2004 Colorectal Cancer Screening: Sigmoidoscopy 12/17/2004 Influenza Vaccine (Season Ended) 2025 Hepatitis B Vaccine Aged Out No longe r eligible based on patient's age to complete this topic Insurance [employer] [place] Care Teams Water Taxi Boat Mate Relationship Specialty Start Date End Date Lisy Ford RN PCP - General Family Medicine 10/15/21
--- OUTSIDE RECORDS SUMMARY | 2024-09-14 11:54 | XMS_ITS | Encounter Summary ---
Author Organization [employer] Address [address] [facility] 7[address] [place] [address] Care Team Providers Care Corporate Trainer Name Role Phone Yecenia Hopper MD Primary Care Pro vider Reason for Visit * Reason Comments Med Refill Encounter Details Date Type Department Care Team (Late st Contact Info) Description 10/11/2023 Refill [facility] [address] [place] [address] Yecenia Hopper MD [address] [place] [address] Chronic bilateral low back pain without sciatica Social History Tobacco Use Types Packs/Day Years Used Date Smoking Tobacco: Never Smokeless Tobacco: Never Alcohol Use Standard Drinks/Week Comments Never 0 (1 standard drink = 0.6 oz pur e alcohol) Depression Answer Date Recorded Patient Health Questionnaire-9 Score 0 04/06/2023 Patient Health Questionnaire-9 Score 0 04/06/2023 Last PHQ-9: Questionnaire Data Not on file [...] Answer Date Recorded Patient Health Questionnaire-2 Score 0 04/06/2023 Sex and Gender Information Value Date Recorded [...] Description 09/21/2024 11:00 AM EDT Office Visit [facility] OPT[facility] [address] [place] [address] Sudhakar, Meghan, OD [address] [place] [address] 09/27/2024 9:00 AM EDT Office Visit [facility] [address] [place] [address] Yecenia Hopper MD [address] [place] [address] documented as of this encounter Visit Diagnoses Diagnosis Chronic bilateral low back pain without sciatica documented in this encounter Additional Health Concerns Assessment Noted Time PHQ-9 Depression Total Score: 0 04/06/20 9:26 AM EDT documented as of this encounter Care Teams Corporate Trainer Relationship Specialty Start Date End Date Yecenia Hopper MD [address] [place] [address] PCP - General Internal Medicine 02/17/23 documented as of this encounter
--- OUTSIDE RECORDS SUMMARY | 2024-09-14 11:54 | XMS_ITS | Encounter Summary ---
Author Organization [employer] Address [address] [facility] [address] [place] [address] Care Team Providers Care Crop Adjuster Name Role Phone Yecenia Hopper MD Primary Care Pro vider Encounter Details Date Type Department Care Team (Late st Contact Info) Description 04/21/2023 Abstract [facility] [address] [place] [address] Yecenia Hopper MD [address] [place] [address] Social History Tobacco Use Types Packs/Day Years [...] Description 09/21/2024 11:00 AM EDT Office Visit [facility] [address] [place] [address] Sudhakar, Meghan, OD [address] [place] [address] 09/27/2024 9:00 AM EDT Office Visit [facility] [address] [place] [address] Yecenia Hopper MD [address] [place] [address] documented as of this encounter Visit Diagnoses Not on filedocumented in this encounter Additional Health Concerns Assessment Noted Time PHQ-9 Depression Total Score: 0 04/06/20 23 9:26 AM EDT documented as of this encounter Care Teams Crop Adjuster Relationship Specialty Start Date End Date Yecenia Hopper MD [address] [place] [address] PCP - General Internal Medicine 02/17/23 documented as of this encounter
--- OUTSIDE RECORDS SUMMARY | 2024-09-14 11:54 | XMS_ITS | Encounter Summary ---
Author Organization [employer] Address [address] [facility] [address] [place] [address] Care Team Providers Care Game Warden Name Role Phone Yecenia Hopper MD Primary Care Pro vider Reason for Visit * Reason Comments Med Refill Encounter Details Date Type Department Care Team (Late st Contact Info) Description 12/17/2023 Refill [facility] [address] [place], [place] [phone] Dora Plaza MD [address] [place], [place] [phone] Cervical paraspinal muscle spasm; Arthritis of both knees Social History Tobacco Use Types Packs/Day Years [...] Description 09/21/2024 11:00 AM EDT Office Visit [facility] OPTOMETRY [address] [place] [address] Sudhakar, Meghan, OD [address] [place] [address] 09/27/2024 9:00 AM EDT Office Visit [facility] MED[facility] [address] [place] [address] Yecenia Hopper MD [address] [place] [address] documented as of this encounter Visit Diagnoses Diagnosis Cervical paraspinal muscle spasm Spasm of muscle Arthritis of both knees documented in this encounter Additional Health Concerns Assessment Noted Time PHQ-9 Depression Total Score: 0 04/06/20 9:26 AM EDT documented as of this encounter Care Teams Game Warden Relationship Specialty Start Date End Date Yecenia Hopper MD [address] [place] [address] PCP - General Internal Medicine 02/17/23 documented as of this encounter
--- OUTSIDE RECORDS SUMMARY | 2024-09-14 11:54 | XMS_ITS | Encounter Summary ---
Author Organization [employer] Address [address] [facility] [address] [address] Care Team Providers Care Heat Treat Operator Name Role Phone Yecenia Hopper MD Primary Care Pro vider Reason for Visit * Reason Onset Date Comments Skin Problem 09/14/2024 Encounter Details Date Type Department Care Team ([facility] st Contact Info) Description 09/14/2024 Telephone [facility] [address] [place], [place] [phone] Yecenia Hopper MD [address] [place] [address] Skin Problem Social History Tobacco Use Types Packs/Day Years [...] AM EDT documented as of this encounter Miscellaneous Notes * Telephone Encounter - Scarlett Bynum - 09/14/2024 11:26 AM EDT PT walked in requesting a follow up appt documented in this encounter Plan of Treatment Upcoming Encounters Date Type Department Care Team (Late st Contact Info) Description 09/21/2024 11:00 AM EDT Office Visit [facility] [address] [place] [address] Sudhakar, Meghan, OD [address] [place] [address] 09/27/2024 9:00 AM EDT Office Visit [facility] [address] [place] [address] Yecenia Hopper MD [address] [place] [address] documented as of this encounter Visit Diagnoses Not on filedocumented in this encounter Additional Health Concerns Assessment Noted Time PHQ-9 Depression Total Score: 5 03/22/20 24 11:33 AM EDT documented as of this encounter Care Teams Heat Treat Operator Relationship Specialty Start Date End Date Yecenia Hopper MD [address] [place] [address] PCP - General Internal Medicine 02/17/23 documented as of this encounter
--- OUTSIDE RECORDS SUMMARY | 2024-09-14 11:55 | XMS_ITS | Encounter Summary ---
Author Organization [employer] Address [address] [place] [address] Care Team Providers Care Manufacturing Leader Name Role Phone Jj Robbins Primary Care Provider Unavail able Yecenia Hopper MD Primary Care Pro vider Reason for Visit * Reason Comments Med Refill Encounter Details Date Type Department Care Team (Late Contact Info) Description 09/10/2022 Refill [facility] [address] [place] [address] Jj Robbins AGNP Chronic bilateral low back pain without sciatica Social History Tobacco Use Types Packs/Day Years Used Date Smoking Tobacco: Never Smokeless Tobacco: Never Sex and Gender Information Value Date Recorded Sex Assigned at Male 04/07/2022 10:39 AM EDT Legal Sex Male 10:39 AM EDT Gender Identity Male 04/07/2022 10:39 AM EDT Sexual Orientation Choose not to disclose 2021 10:39 AM EDT documented as of this encounter Plan of Treatment Upcoming Encounters Date Type Department Care Team (Late Contact Info) Description 09/21/2024 11:00 AM EDT Office Visit [facility] OPTOMETRY [address] [place] [address] Sudhakar, Meghan, OD [address] [place] [address] 09/27/2024 9:00 AM EDT Office Visit [facility] MEDICINE [address] [place] [address] Yecenia Hopper MD [address] [place] [address] documented as of this encounter Visit Diagnoses Diagnosis Chronic bilateral low back pain without sciatica documented in this encounter Care Teams Manufacturing Leader Relationship Specialty Start Date End Date Jj Robbins AGNP PCP - General Family Medicine 03/28/22 02/16/23 Yecenia Hopper MD [address] [place] [phone] PCP - General Internal Medicine 02/17/23 documented as of this encounter
--- OUTSIDE RECORDS SUMMARY | 2024-09-14 11:55 | XMS_ITS | Encounter Summary ---
Author Organization [facility] Address [address] [place] [address] Care Team Providers Care Relief Cook Name Role Phone Jj Robbins Primary Care Provider Unavail able Yecenia Hopper MD Primary Care Pro vider Encounter Details Date Type Department Care Team (Latest Contact Info) Description 04/17/2021 Abstract [facility] CONVERSIONS Dental, Provider, DDS Social History Tobacco Use Types Packs/Day Years Used Date Smoking Tobacco: Never Assessed Sex and Gender Information Value Date Recorded [...] Description 09/21/2024 11:00 AM EDT Office Visit [facility] OPTOMETRY [address] [place] [address] Meghan De La Fuente, OD 230 [place] [address] 09/27/2024 9:00 AM EDT Office Visit [facility] MEDICINE [address] [place] [address] Yecenia Hopper MD [address] [place] [address] documented as of this encounter Visit Diagnoses Not on filedocumented in this encounter Care Teams Relief Cook Relationship Specialty Start Date End Date Jj Robbins AGNP PCP - General Family Medicine 03/28/22 02/16/23 Yecenia Hopper MD [address] [place] [address] PCP - General Internal Medicine 02/17/23 documented as of this encounter
== END 2024-09-14 11:10 | disposition home or self-care (01) ==
LOC: HO.HUSH 10:27
PROVIDERS: PCP Student in an Organized Health Care Education/Training Program; Visit Provider Urology
DX: Z13.9 Encounter for screening, unspecified (principal)

== ENCOUNTER → 2024-09-14 10:26 | Outpatient (BNVA) | payer OTHER, SELFPAY | PROVIDERS: PCP Student in an Organized Health Care Education/Training Program; Visit Provider Urology | DX: N32.0 Bladder-neck obstruction (principal); R33.9 Retention of urine, unspecified; R39.12 Poor urinary stream | CPT/HCPCS: 51798; 81003; 99212 ==

== ENCOUNTER 2025-01-30 08:40 | Outpatient (REF) | payer OTHER, SELFPAY ==
--- OUTSIDE RECORDS SUMMARY | 2025-01-30 09:08 | XMS_ITS | Encounter Summary ---
Author Organization [employer] Address [address] [facility] 7t [place] [address] Care Team Providers Care Chiropractor Sole Practitioner Name Role Phone Yecenia Hopper MD Primary Care Pro vider Encounter Details Date Type Department Care Team (Late st Contact Info) Description 04/21/2023 Abstract [facility] MEDICINE [address] [place] [address] Yecenia Hopper MD [address] [place] [address] Social History Tobacco Use Types Packs/Day Years [...] Care Team (Late st Contact Info) Description 02/02/2025 9:30 AM EDT Office Visit [facility] MEDICINE [address] [place] [phone] Yecenia Hopper MD [address] [place] [address] documented as of this encounter Visit Diagnoses Not on filedocumented in this encounter Additional Health Concerns Assessment Noted Time PHQ-9 Depression Total Score: 0 04/06/20 23 9:26 AM EDT documented as of this encounter Care Teams Chiropractor Sole Practitioner Relationship Specialty Start Date End Date Yecenia Hopper MD [address] [place] [phone] PCP - General Internal Medicine 02/17/23 documented as of this encounter
--- OUTSIDE RECORDS SUMMARY | 2025-01-30 09:08 | XMS_ITS | Clinical Summary ---
Author Organization [facility] Address [address] [facility] [address] [place] [address] Phone Care Team Providers Care Burning Supervisor Name Role Phone Lisy Ford RN Primary [...] Health Maintenance Due Date Last Done Comments Colorectal Cancer Screening: Annual FOBT 12/17/2004 Colorectal Cancer Screening: Colonoscopy 12/17/2004 Colorectal Cancer Screening: Sigmoidoscopy 12/17/2004 Pneumococcal Vaccine: 50+ Ye ars (1 of 1 - PCV) 12/17/2005 Influenza Vaccine (#1) 2025 Hepatitis B Vaccine Aged Out No longe r eligible based on patient's age to complete this topic Insurance [place] Medicaid [place] Care Teams Burning Supervisor Relationship Specialty Start Date End Date Lisy Ford RN PCP - General Family Medicine 10/15/21
--- OUTSIDE RECORDS SUMMARY | 2025-01-30 09:08 | XMS_ITS | Encounter Summary ---
Author Organization [facility] Address [address] [facility] [address] [place] [phone] Phone Care Team Providers Care Furniture Fabricator Name Role Phone Yecenia Hopper MD Primary Care Pro vider Encounter Details Date Type Department Care Team (Late st Contact Info) Description 07/07/2024 Ancillary Orders [address] [address] System, Provider Not In, [facility] [address] [address] Social History Tobacco Use Types Packs/Day Years Used Date Smoking Tobacco: Never Smokeless Tobacco: Never Alcohol Use Standard Drinks/Week Comments Never 0 (1 standard drink = 0.6 oz pur e alcohol) Education Answer Date Recorded Are you interested in more education? Not on efrem e 10/06/2023 Are you concerned about learning? Not on file 10/06/2023 No 10/06/2023 No 10/06/2023 Digital Access Answer Date Recorded No 10/06/2023 No 10/06/2023 Reliable internet access at home? Not on file 10/06/2023 Device with a working camera? Not on file Sex and Gender Information Value Date Recorded Sex Assigned at Not on file Legal Sex Male 11:16 AM EST Gender Identity Not on file Sexual Orientation Not on file documented as of this encounter Plan of Treatment Upcoming Encounters Date Type Department Care Team (Late st Contact Info) Description 06/28/2025 10:10 AM EST Office Visit [facility] [address] [place] [address] Domenic Mendoza DO [address] [place] [address] [email or web address] documented as of this encounter Results * DXA Outside (No Interpretation) (01/28/2024 12:00 AM EDT) Narrative Record, 07/07/2024 10:44 AM EST This study is for PACS storage only and not for interpretation. Procedure Note Record, 07/07/2024 This study is for PACS storage only and not for interpretation. us Provider Not In System PhD IMG OUTSIDE IMAGING W /OUT INTERPRETATION Final Result documented in this encounter Visit Diagnoses Not on filedocumented in this encounter Care Teams Furniture Fabricator Relationship Specialty Start Date End Date Yecenia Hopper MD [address] [place] [phone] PCP - General Internal Medicine 07/31/23 documented as of this encounter Additional Source Comments The information contained in this document represents components of the legal health record. It is not the complete legal health record.[facility]
[2025-01-30 11:35] LABS: Alanine Aminotransferase 26 U/L (0-40); Albumin Level 4.6 g/dL (3.5-5.0); Alkaline Phosphatase 159 U/L (39-117); Anion Gap 11 (12-20); Aspartate Amino Transferase 39 U/L (5-37); Blood Urea Nitrogen 22 mg/dL (9-16); Calcium 9.4 mg/dL (8.4-10.2); Carbon Dioxide 26 mmol/L (22-29); Chloride 105 mmol/L (96-108); Cholesterol 246 mg/dL (<200); Estimated Glomerular Filt Rate > 60; HDL Cholesterol 49 mg/dL (>40); Potassium 4.2 mmol/L (3.3-5.1); Sodium 138 mmol/L (135-145); Total Protein 7.5 g/dL (6.5-8.0); Triglycerides 138 mg/dL (<150)
[2025-01-30 11:44] LABS: Prostate Specific Antigen 3.37 ng/mL (<0.05-4.0)
== END 2025-01-30 08:41 | disposition home or self-care (01) ==
LOC: HO.HHCL 08:40
PROVIDERS: PCP Student in an Organized Health Care Education/Training Program; Visit Provider Student in an Organized Health Care Education/Training Program
DX: R97.20 Elevated prostate specific antigen [PSA] (principal); R94.8 Abnormal results of function studies of other organs and systems; E78.5 Hyperlipidemia, unspecified; Z12.5 Encounter for screening for malignant neoplasm of prostate
CPT/HCPCS: 36415; 80053; 80061; 82306; 84153

== ENCOUNTER 2025-03-01 09:44 | Emergency (ER) | payer OTHER, SELFPAY ==
[2025-03-01 09:49] VITALS: BP 132/64; PULSE 68; RESP 18; TEMP 36.5; O2SAT 98; BMI 24.5
--- NOTE | 2025-03-01 09:52 | ED.GENADULT ---
HPI - General Adult General Chief complaint: Upper Respiratory Symptoms Stated complaint: st, cough Time Seen by Provider: 03/01/25 10:16 Source: patient and rug drying machine operator Mode of arrival: ambulatory Limitations: no limitations History of Present Illness ED Provider: DR. Jones HPI narrative: 69-year-old male came in for evaluation of sore throat, generalized body ache, subjective fever, nonproductive coughing, +exposure to a sick contacts, no recent travel, no recent long immobilization. No abdominal pain. Related Data Home Medications ?Medication ?Instructions ?Recorded ?Confirmed atorvastatin 40 mg tablet 40 mg PO DAILY 07/04/21 07/02/23 cetirizine 10 mg tablet 10 mg PO DAILY 07/04/21 07/02/23 hydrocortisone 2.5 % topical cream appl topical BID 07/04/21 07/02/23 omeprazole 20 mg capsule,delayed 20 mg PO BID PRN Gastric Reflux 07/04/21 07/02/23 release celecoxib 200 mg capsule 200 mg PO DAILY 10/10/21 07/02/23 meloxicam 15 mg tablet 15 mg PO DAILY 01/03/22 07/02/23 fluoxetine 20 mg capsule 20 mg PO DAILY 07/01/22 07/02/23 gabapentin 600 mg tablet 600 mg PO TID 07/01/22 07/02/23 lorazepam 0.5 mg tablet 0.5 mg PO BID PRN Anxiety 07/01/22 07/02/23 trazodone 50 mg tablet 50 mg PO BEDTIME PRN Insomnia 07/01/22 07/02/23 Previous Rx's ?Medication ?Instructions ?Recorded hydrocodone 5 mg-acetaminophen 325 1 tab PO Q4-6H PRN pain #30 tabs 03/26/23 mg tablet diphenhydramine HCl 25 mg capsule 25 mg PO TID PRN allergic reaction 08/18/23 (Benadryl) #20 caps epinephrine 0.3 mg/0.3 mL 0.3 mg (0.3 mL) IM Q4H PRN 08/18/23 injection, auto-injector (EpiPen anaphylaxis #2 ea 2-Luther) benzonatate 100 mg capsule 100 mg PO TID PRN cough #14 caps 11/02/23 fluticasone propionate 50 2 spray intranasal DAILY #16 grams 11/02/23 mcg/actuation nasal spray,suspension (Flonase Allergy Relief) finasteride 5 mg tablet 5 mg PO DAILY 90 days #90 tabs 03/15/24 Allergies Allergy/AdvReac Type Severity Reaction Status Date / Time latex AdvReac Rash Verified 03/01/25 09:54 Review of Systems Review of Systems: All other systems are reviewed and are negative Constitutional: Reports as per HPI and Reports no additional constitutional complaints Eyes: Reports as per HPI and Reports no additional eye complaints Reports system reviewed and no additional complaints, except as documented Cardiovascular: Reports as per HPI and Reports no additional cardiovascular complaints Respiratory: Reports as per HPI and Reports no additional respiratory complaints Gastrointestinal: Reports as per HPI and Reports no additional gastrointestinal complaints Genitourinary: Reports no additional female genitourinary complaints Musculoskeletal: Reports no additional musculoskeletal complaints Skin/Breast: Reports system reviewed and no additional complaints, except as docu Psychiatric: Reports no additional psychiatric complaints Endocrine: Reports no additional endocrine complaints Hematologic/Lymphatic: Reports no additional hematologic/lymphatic complaints Allergic/Immunologic: Reports no additional allergic/immunologic complaints Reports system reviewed and no additional complaints, except as documented and Reports Abnormal speech present [facility] Past Medical History Medical History Depression Anxiety History of Helicobacter pylori infection BPPV (benign paroxysmal positional vertigo) Pre-diabetes BPH (benign prostatic hyperplasia) Asthma Elevated cholesterol 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 Mother CVD (cardiovascular disease) Social History Social History Household Members: Spouse and Family Housing: House Are you a primary progressive care unit registered nurse to a significant other at home: No Do you presently have visiting nurse or other home services: No Alcohol intake: never Patient Tobacco Use Status: Never used Tobacco Smoked in Last 30 Days: No Use of substances other than those prescribed or required for medical reasons: No Advance Directives: No Advance Directives Information Provided: Yes Physical Exam ED Vital Signs: Vital Signs - 24 hr 09/24/25 09:49 03/01/25 10:11 Temperature 97.7 F 97.7 F Pulse Rate 68 68 Respiratory Rate 18 18 Blood Pressure 132/64 132/64 Pulse Oximetry 98 98 Oxygen Delivery Method Room Air Room Air BMI result Body Mass Index 24.5 Vital signs have been reviewed and appear to be correct. Blood pressure elevated. Heart rate normal. Respiratory rate normal. Temperature normal. Oxygen saturation normal. Appearance: Alert. Oriented X3. No acute distress. Head: Normal external exam. Normocephalic. Atraumatic. No Lang signs noted. No raccoon eyes noted Eyes: PERRLA. EOMI. Conjunctiva and sclera normal. Eyelids normal. ENT: TM's Normal. Pharynx normal. Uvula midline. Moist mucous membranes. No trismus noted. No drooling noted. No muffled voice noted. Neck: Normal inspection. Neck supple. FROM. No adenopathy. Thyroid Normal. No meningeal signs. No neck mass noted. CVS: Normal heart rate and rhythm. Heart sound normal. No murmurs noted. Pulses normal throughout. Respiratory: No respiratory distress. Painless inspiration. Breath sounds normal. No wheezes/rales/rhonchi noted. Chest nontender. No accessory muscle usage noted or decreased air movement noted. Abdomen: Soft and nontender. Bowel sounds normal in all 4 quadrants. No distention noted. No organomegaly noted. No visible injury noted. Back: No CVA tenderness. Full range of motion noted. Skin: Skin warm and dry. Normal skin color. Normal skin turgor. No rashes/lesions/lacerations noted. Extremities: No lower extremity edema. Extremities exhibit normal range of motion. Extremities nontender. Neuro: Oriented X 3. Cranial nerve exam: II-XII are grossly intact No motor deficit. No sensory deficit. Reflexes normal. Course Course Course Narrative: This is a rapid medical exam performed by Dianna Cruz NP: Additional HPI, ROS, PE not included below will be deferred to primary provider. Patient is a 69-year-old male presenting with complaint of sore throat, cough since last night. Son is sick with similar symptoms. Denies fevers. Took Robitussin last night. Plan: strep and viral swabs Reevaluation(s) Reevaluation #1: Negative for strep throat, and other upper respiratory viral infection. As discussed with the patient to drink plenty of fluids, frequent hand washing, wear face mask at all times, keep a social distance. Time: 11:22 Medical Decision Making Differential Diagnosis Differential Diagnoses: The differential diagnosis associated with the presentation includes (Strep pharyngitis, pneumonia, pneumothorax, viral upper respiratory infection.) Admission/Observation Consideration of admission/observation: Escalation of care including admission/observation considered Lab Data MDM Lab Attestation statement: I reviewed the patient's lab results. Labs: Lab Results 03/01/25 Range/Units 09:58 COVID-19 (MILLIE) Negative (Negative) COVID-19 Clin Com See Note Influenza Type A (LAURO) Negative (Negative) Influenza Type B (LAURO) Negative (Negative) Influenza A & B Note See Note S. pyogenes GrpA LAURO Negative (Negative) Discharge Plan Discharge Clinical Impression: Viral infection, Upper respiratory infection Patient Disposition: Home, Self-Care Instructions: Viral Syndrome (ED) Prescriptions: No Action hydrocodone-acetaminophen 5-325 mg tablet 1 tab PO Q4-6H PRN (Reason: pain) Qty: 30 0RF Rx Instructions: Partial Fill upon patient request. diphenhydramine HCl [Benadryl] 25 mg capsule 25 mg PO TID PRN (Reason: allergic reaction) Qty: 20 0RF epinephrine [EpiPen 2-Luther] 0.3 mg/0.3 mL auto-injector 0.3 mg IM Q4H PRN (Reason: anaphylaxis) Qty: 2 0RF benzonatate 100 mg capsule 100 mg PO TID PRN (Reason: cough) Qty: 14 0RF fluticasone propionate [Flonase Allergy Relief] 50 mcg/actuation spray,suspension 2 spray intranasal DAILY Qty: 16 0RF Rx Instructions: administer into each nostril celecoxib 200 mg capsule 200 mg PO DAILY atorvastatin 40 mg tablet 40 mg PO DAILY omeprazole 20 mg capsule,delayed release(DR/EC) 20 mg PO BID PRN (Reason: Gastric Reflux) hydrocortisone 2.5 % cream topical BID cetirizine 10 mg tablet 10 mg PO DAILY meloxicam 15 mg tablet 15 mg PO DAILY lorazepam 0.5 mg tablet 0.5 mg PO BID PRN (Reason: Anxiety) fluoxetine 20 mg capsule 20 mg PO DAILY trazodone 50 mg tablet 50 mg PO BEDTIME PRN (Reason: Insomnia) gabapentin 600 mg tablet 600 mg PO TID finasteride 5 mg tablet 5 mg PO DAILY 90 Days Qty: 90 3RF Referrals: Yecenia Hopper MD [Primary Care Provider, Internal Medicine] Print Language: Malian
[2025-03-01 10:11] VITALS: BP 132/64; PULSE 68; RESP 18; TEMP 36.5; O2SAT 98
[2025-03-01 10:15] LABS: IDNOW Serial# 08D9AD1C; Strep A Nucleic Acid Negative (Negative)
--- NOTE | 2025-03-01 10:17 | PC.NURSE ---
69 M presents to ED with sore throat, dry cough, running nose since yesterday. A+Ox4, calm, cooperative, ambulatory. RR even and unlabored, denies CP or SOB but sts some SOB when coughing.
[2025-03-01 10:19] LABS: COVID-19 Test Negative (Negative); IDNOW Serial# 58CA691E
[2025-03-01 10:20] LABS: IDNOW Serial# 55D5AD1C; Influenza B2 Negative (Negative)
[2025-03-01 11:44] VITALS: BP 132/64; PULSE 68; RESP 18; TEMP 36.5; O2SAT 98
--- OUTSIDE RECORDS SUMMARY | 2025-03-01 12:50 | XMS_ITS | Encounter Summary ---
Author Organization [employer] Address [address] [place] [address] [address] [place] [address] Care Team Providers Care Field Consultant Name Role Phone Jj Robbins Primary Care Provider Unavail able Yecenia Hopper MD Primary Care Pro vider Reason for Visit * Reason Comments Med Refill Encounter Details Date Type Department Care Team (Late Contact Info) Description 09/10/2022 Refill [facility] MED & PEDS [address] [place], [place] [phone] Jj Robbins AGNP Chronic bilateral low back [...] Upcoming Encounters Date Type Department Care Team ([facility] Contact Info) Description 03/13/2025 1:30 PM EDT Clinical Support [facility] MED[facility] [address] [place] [phone] 05/16/2025 10:45 AM EST Office Visit [facility] [address] [place] [address] [phone] Yecenia Hopper MD [address] [place] [phone] documented as of this encounter Visit Diagnoses Diagnosis Chronic bilateral low back pain without sciatica documented in this encounter Care Teams Field Consultant Relationship Specialty Start Date End Date Jj Robbins AGNP PCP - General Family Medicine 03/28/22 02/16/23 Yecenia Hopper MD [address] [place] [address] [phone] PCP - General Internal Medicine 02/17/23 documented as of this encounter
--- OUTSIDE RECORDS SUMMARY | 2025-03-01 12:50 | XMS_ITS | Encounter Summary ---
Author Organization [employer] Address [address] [facility] 7t [place] [address] Care Team Providers Care Refuge Manager Name Role Phone Yecenia Hopper MD Primary Care Pro vider Reason for Visit * Reason Comments Med Refill Encounter Details Date Type Department Care Team ([facility] st Contact Info) Description 12/31/2024 Refill [facility] MEDICINE [address] [place], [place] [phone] Yecenia Pompa MD [address] [place] [address] Chronic bilateral low back pain without sciatica [...] Recorded Patient Health Questionnaire-2 Score 2 03/22/2024 Internet Access Answer Date Recorded Internet Access Q1 Yes 09/19/2024 Internet Access Q2 Not on file 09/19/2024 Sex and Gender Information Value Date Recorded Sex Assigned at Male 04/07/2022 10:39 AM EDT Legal Sex Male 10:39 AM EDT Gender Identity Male 04/07/2022 10:39 AM EDT Sexual Orientation Choose not to disclose 2021 10:39 AM EDT documented as of this encounter Plan of Treatment Upcoming Encounters Date Type Department Care Team (Late st Contact Info) Description 03/13/2025 1:30 PM EDT Clinical Support [facility] MEDICINE [address] [place] [phone] 05/16/2025 10:45 AM EST Office Visit [facility] [address] [place] [address] Yecenia Hopper MD [address] [place] [phone] documented as of this encounter Visit Diagnoses Diagnosis Chronic bilateral low back pain without sciatica documented in this encounter Additional Health Concerns Assessment Noted Time PHQ-9 Depression Total Score: 5 03/22/20 24 11:33 AM EDT documented as of this encounter Care Teams Refuge Manager Relationship Specialty Start Date End Date Yecenia Hopper MD [address] [place] [phone] PCP - General Internal Medicine 02/17/23 documented as of this encounter
--- OUTSIDE RECORDS SUMMARY | 2025-03-01 12:50 | XMS_ITS | Encounter Summary ---
Author Organization [employer] Address [address] [facility] 7t [place] [address] Care Team Providers Care Tube Knitter Name Role Phone Yecenia Hopper MD Primary Care Pro vider Encounter Details Date Type Department Care Team (Late st Contact Info) Description 05/17/2024 Orders Only [facility] MEDICINE [address] [place], [place] [phone] Damari Gonsalez MD [address] [place] [address] Social History Tobacco Use Types Packs/Day Years [...] Description 03/13/2025 1:30 PM EDT Clinical Support [address] [address] 05/16/2025 10:45 AM EST Office Visit [address] [address] Yecenia Hopper MD [address] [place] [phone] documented as of this encounter Visit Diagnoses Not on filedocumented in this encounter Additional Health Concerns Assessment Noted Time PHQ-9 Depression Total Score: 5 03/22/20 24 11:33 AM EDT documented as of this encounter Care Teams Tube Knitter Relationship Specialty Start Date End Date Yecenia Hopper MD [address] [place] [phone] PCP - General Internal Medicine 02/17/23 documented as of this encounter
--- OUTSIDE RECORDS SUMMARY | 2025-03-01 12:50 | XMS_ITS | Encounter Summary ---
Author Organization [employer] Address [address] [facility] 7t [place] [address] Care Team Providers Care Chief Librarian Branch Or Department Name Role Phone Yecenia Hopper MD Primary Care Pro vider Reason for Visit * Reason Comments Med Refill Encounter Details Date Type Department Care Team ([facility] st Contact Info) Description 10/11/2023 Refill [facility] [address] [place] [address] Yecenia Hopper MD [address] [place] [address] Chronic bilateral low back pain without sciatica [...] Description 03/13/2025 1:30 PM EDT Clinical Support [facility] MEDICINE [address] [place] [phone] 05/16/2025 10:45 AM EST Office Visit [address] [address] Yecenia Hopper MD [address] [place] [phone] documented as of this encounter Visit Diagnoses Diagnosis Chronic bilateral low back pain without sciatica documented in this encounter Additional Health Concerns Assessment Noted Time PHQ-9 Depression Total Score: 0 04/06/20 9:26 AM EDT documented as of this encounter Care Teams Chief Librarian Branch Or Department Relationship Specialty Start Date End Date Yecenia Hopper MD [address] [place] [phone] PCP - General Internal Medicine 02/17/23 documented as of this encounter
--- OUTSIDE RECORDS SUMMARY | 2025-03-01 12:50 | XMS_ITS | Encounter Summary ---
Author Organization [employer] Address [address] [place] [address] 7 [place] [address] Care Team Providers Care Plate Colorer Name Role Phone Jj Robbins Primary Care Provider Unavail able Yecenia Hopper MD Primary Care Pro vider Encounter Details Date Type Department Care Team (Latest Contact Info) Description 04/17/2021 Abstract [facility] CONVERSIONS Dental, Provider, DDS Social History Tobacco [...] Upcoming Encounters Date Type Department Care Team ( st Contact Info) Description 03/13/2025 1:30 PM EDT Clinical Support [facility] MEDICINE [address] [place] [phone] 05/16/2025 10:45 AM EST Office Visit [facility] MEDICINE [address] [place] [phone] Yecenia Hopper MD [address] [place] [phone] documented as of this encounter Visit Diagnoses Not on filedocumented in this encounter Care Teams Plate Colorer Relationship Specialty Start Date End Date Jj Robbins AGNP PCP - General Family Medicine 03/28/22 02/16/23 Yecenia Hopper MD [address] [place] [phone] PCP - General Internal Medicine 02/17/23 documented as of this encounter
--- OUTSIDE RECORDS SUMMARY | 2025-03-01 12:50 | XMS_ITS | Encounter Summary ---
Author Organization [employer] Address [address] [facility] 7t [place] [address] Care Team Providers Care Retail Loss Prevention Investigator Name Role Phone Yecenia Hopper MD Primary Care Pro vider Encounter Details Date Type Department Care Team ([facility] st Contact Info) Description 03/01/2025 Orders Only GENERIC EXTERNAL DATA DEPARTMENT Provider, Generic External Data Social History Tobacco Use Types Packs/Day Years Used Date Smoking Tobacco: Never Smokeless Tobacco: Never Alcohol Use Standard Drinks/Week Comments Never 0 (1 standard drink = 0.6 oz pur e alcohol) Depression Answer Date Recorded Patient Health Questionnaire-9 Score 0 02/02/2025 Patient Health Questionnaire-9 Score 0 02/02/2025 Last PHQ-9: Questionnaire Data Not on file 0 02/02/2025 Housing Stability Answer Date Recorded What is [...] Date Recorded Patient Health Questionnaire-2 Score 0 02/02/2025 Internet Access Answer Date Recorded Internet Access [...] Description 03/13/2025 1:30 PM EDT Clinical Support [facility] MEDIC[facility] [address] [place] [phone] 05/16/2025 10:45 AM EST Office Visit [address] [address] Yecenia Hopper MD [address] [place] [address] [phone] documented as of this encounter Procedures Procedure Name Priority Date/Time Associated Diagnosis Comments INFLUENZA A B2 ID NOW (HUGHES) Routine 03/01/2025 9:58 AM EDT STREP A NUCLEIC ACID Routine 03/01/2025 9:58 AM EDT COVID-19 ID NOW (HUGHES) Routine 03/01/2025 9:58 AM EDT documented in this encounter Results * Influenza A B2 ID NOW (Hughes) (03/01/2025 9:58 AM EDT) IDNOW SERIAL# [id number] [facility] Influenza A Negative Negative [facility] Influenza B2 Negative Negative [facility] Influenza A B2 Note See Note [facility] Comment:The Hughes ID NOW In fluenza A B2 test is used for thequalitative detection of influenza A and B from patientswith signs and symptoms of respiratory infection.Negative results do not preclude influenza virus infectionand should not be used as the sole basis for diagnosis,treatment or other patient management decisions.There is a risk of false negative results due to thepresence of variants in the viral targets of the assay, lowlevels of virus in the specimen and co- infection withRespiratory Syncytial Virus. 03/01/2025 9:58 AM EDT 03/01/2025 10:01 AM EDT us Generic External Data Provider LAB MICROBIOLOGY - GENERAL ORDERABLES Final Result [facility] [address] [place] [phone] * COVID-19 ID NOW (Photocollect) (03/01/2025 9:58 AM EDT) IDNOW SERIAL# [id number] [facility] COVID-19 TEST Negative Negative [facility] COVID-19 NOTE See Note [facility] Comment: Results are for the identification of SARS-CoV2 RNA. TheSARS-CoV2 RNA is generally detectable in respiratory samplesduring the acute phase of infection. Positive results areindicative of the presence of SARS-CoV-2 RNA; clinicalcorrelation with patient history and other diagnosticinformation is necessary to determine patient infectionstatus. Positive results do not rule out bacterial infectionor co- infection with other viruses.Testing facilities within the [facility] and [facility] are required to report all positive results tothe appropriate public health authorities.Negative results should be treated as presumptive and, ifinconsistent with clinical signs and symptoms or necessaryfor patient management, should be tested with differentauthorized or cleared molecular tests. Negative results donot preclude SARS-CoV2 RNA infection and should not be usedas the sole basis for patient management decisions. Negativeresults should be considered in the context of a patient'srecent exposures, history and the presence of clinical signsand symptoms consistent with COVID-19.This test has been authorized by the FDA under an EmergencyUse Authorization (EUA) for use by authorized laboratories.Testing performed on the Hughes ID NOW utilizing NAAT. 03/01/2025 9:58 AM EDT 03/01/2025 10:01 AM EDT us Generic External Data Provider LAB MOLECULAR JACOB GNOSTICS ORDERABLES Final Result Performing Organization Address [facility] de Phone Number [facility] [address] [place] [address] [phone] * Strep A Nucleic Acid (03/01/2025 9:58 AM EDT) IDNOW SERIAL# [id number] [facility] Strep A Nucleic Acid Negative Negative [facility] Comment:All test results mus t be correlated with clinical findings.This test has not been evaluated for monitoring treatment ofinfection.Additional follow-up testing using the culture method isrequired if the result is negative and clinical symptomspersist, or in the event of an acute rheumatic feveroutbreak. 03/01/2025 9:58 AM EDT 03/01/2025 10:01 AM EDT Generic External Data Provider LAB MICROBIOLOGY - GENERAL ORDERABLES Final Result Performing Organization Address [facility] de Phone Number [facility] [address] [place] [address] [phone] documented in this encounter Visit Diagnoses Not on filedocumented in this encounter Additional Health Concerns Assessment Noted Time PHQ-9 Depression Total Score: 0 02/03/20 25 10:44 AM EDT documented as of this encounter Care Teams Retail Loss Prevention Investigator Relationship Specialty Start Date End Date Yecenia Hopper MD [address] [place] [address] PCP - General Internal Medicine 02/17/23 documented as of this encounter
--- OUTSIDE RECORDS SUMMARY | 2025-03-01 12:50 | XMS_ITS | Encounter Summary ---
Author Organization [facility] Address [address] [facility] [address] [place] [phone] Phone Care Team Providers Care Aluminum Can Collector Name Role Phone Yecenia Hopper MD Primary Care Pro vider Encounter Details Date Type Department Care Team (Late st Contact Info) Description 07/07/2024 Ancillary Orders [address] [address] System, Provider Not In, [facility] [address] [address] Social History Tobacco Use Types Packs/Day Years [...] AM EST Office Visit [facility] [address] [place] [address] Domenic Mendoza DO [address] [place] [address] [email or web address] documented as of this encounter Results * [...] on filedocumented in this encounter Care Teams Aluminum Can Collector Relationship Specialty Start Date End Date Yecenia Hopper MD [address] [place] [phone] PCP - General Internal Medicine 07/31/23 documented as of this encounter Additional Source Comments The information contained in this document represents components of the legal health record. It is not the complete legal health record.[facility]
--- OUTSIDE RECORDS SUMMARY | 2025-03-01 12:50 | XMS_ITS | Clinical Summary ---
Author Organization [employer] Address [address] [facility] 7[address] [place] [address] Care Team Providers Care Chief Operator Synthesis Name Role Phone Yecenia Hopper MD Primary [...] morning and at bedtime. 10/17/19 23 Active acetaminophen (Tylenol 8 Hour) 650 MG ER tabletIndicati ons:Cervical paraspinal muscle spasm Take 2 tablets (1,300 mg) by mouth every 8 (eight) hours. take 2 tablet by oral route every 8 hours as needed swallowing whole with water. Do not break, crush, dissolve and/or chew. 120 tablet 04/22/20 23 Active Glycerin-Hypro mellose-PEG 400 0.2-0.2-1 % solution Administer 1 drop into affected eye(s) every 6 (six) hours if needed (eye tearing). 15 mL 07/07/19 24 Active Fluocinolone Acetonide Scalp ([place]-Smoothe /FS Scalp) 0.01 % oilIndications :Sebopsoriasis Apply at night with head cover 2 times weekly 118.28 mL 2 10/02/19 24 Active albuterol 108 (90 Base) MCG/ACT inhaler Inhale 2 puffs every 6 (six) hours if needed for wheezing. 18 g 1 11/05/19 24 Active fexofenadine (Monisha) 180 MG tabletIndicati ons:Urticaria Take 1 tablet (180 mg) by mouth Once per day. 30 tablet 2 03/22/20 24 Active ketoconazole (NIZOral) 2 % creamIndicatio ns:Sebopsorias is Apply topically 2 times daily. 60 g 1 06/10/19 25 Active traZODone (Desyrel) 50 MG tablet Take 50 mg by mouth if needed at bedtime. 09/03/19 25 Active gabapentin (Neurontin) 600 MG tabletIndicati ons:Chronic bilateral low back pain without sciatica TAKE 1 TABLET BY MOUTH THREE TIMES DAILY 90 tablet 2 10/04/19 25 Active Clobetasol Propionate 0.05 % shampooIndicat ions:Sebopsori asis Daily 118 mL 1 01/14/20 25 Active famotidine (Pepcid) 20 MG tablet TAKE 1 TABLET(20 MG) BY MOUTH AT BEDTIME NEEDED FOR HEARTBURN 90 tablet 01/17/20 25 Active meclizine (Antivert) 25 MG tablet TAKE 1 TABLET BY MOUTH IN THE MORNING, AT NOON, AND AT BEDTIME IF NEEDED FOR DIZZINESS. 30 tablet 2 01/17/20 25 Active amLODIPine (Norvasc) 2.5 MG tablet Take 1 tablet (2.5 mg) by mouth 2 times daily. 60 tablet 2 02/03/20 25 026 Active atorvastatin (Lipitor) 40 MG tabletIndicati ons:Hypertensi on, unspecified type Take 1 tablet (40 mg) by mouth Once per day. 90 tablet 1 02/03/20 25 Active naproxen (Naprosyn) 500 MG tablet Take 1 tablet (500 mg) by mouth 2 times daily. 60 tablet 02/14/20 25 025 Active Diclofenac Sodium 1 % gel Apply 2 g topically 4 times daily. 400 g 1 02/14/20 25 025 Active baclofen (Lioresal) 10 MG tablet Take 1 tablet (10 mg) by mouth 3 times daily. 90 tablet 02/14/20 25 025 Active losartan (Cozaar) 25 MG tablet Take 1 tablet (25 mg) by mouth Once per day. 90 tablet 02/21/20 25 026 Active meloxicam (Mobic) 15 MG tabletIndicati ons:Cervical paraspinal muscle spasm,Arthriti s of both knees TAKE 1 TABLET(15 MG) BY MOUTH IN THE MORNING 30 tablet 1 04/22/20 23 025 Discontinued(Th erapy completed) cetirizine (ZyrTEC) 10 MG tablet TAKE 1 TABLET BY MOUTH IN THE MORNING. MAY REPEAT AT NIGHT IF NECESSARY 025 Discontinued(Ot her) amLODIPine (Norvasc) 5 MG tablet TAKE 1 TABLET(5 MG) BY MOUTH DAILY 90 tablet 01/17/20 25 025 Discontinued(Ot her) atorvastatin (Lipitor) 40 MG tabletIndicati ons:Hypertensi on, unspecified type TAKE 1 TABLET(40 MG) BY MOUTH IN THE MORNING 90 tablet 1 01/31/20 025 Discontinued(Re order (will not trigger notification to Pharmacy)) triamcinolone (Kenalog) 0.1 % cream Apply topically if needed in the morning and at bedtime (pain and swelling) for up to 7 days. 30 g 2 02/03/20 025 Active Problems Problem Noted Date Diagnosed Date Overweight (BMI 25.0-29.9) 09/27/2024 Skin rash 09/27/2024 Cardiac murmur 11/06/2023 Elevated alkaline phosphatase level 05/26/2023 Dermatitis 10/31/2022 Overview (10/31/2022): Treat with Clobetasol [...] smoking, drug use, ETOH Lipids: ordered. Colonoscopy: 2017, patient reports that he does not need repeat for 10 years. I do not have documentation to corroborate this. Vacc.: pneumococcal. Eye exam: June, glasses working well Dental home: more than a year, [facility] dental, advised patient to make appointment [...] Problem Noted Date Diagnosed Date Resolved Date Elevated PSA 09/27/2024 02/02/2025 Epigastric pain 04/06/2023 02/02/2025 Overview (07/07/2023): Epigastric pain Resolved -03/2023 H pylori neg UBT off PPIs -famotidine prn -states taking sporadically -if needs more freq will refer to GI Penicillin allergy 04/06/2023 BPPV (benign paroxysmal positional vertigo) 03/03/2023 05/26/2023 Inguinal hernia 03/03/2023 04/06/2023 Prostatitis 01/22/2015 11/14/2022 Overview (10/30/2022): COSSMA Assessment & Plan (10/31/2022 6:19 PM EDT): Patient is asymptomatic Encounters Date Type Department Care Team Description 03/01/2025 Orders Only GENERIC EXTERNAL DATA DEPARTMENT Provider, Generic External Data 02/20/2025 9:30 AM EDT Clinical Support [address] [address] Zeinab Dunn RN Essential hypertension 02/20/2025 Orders Only [address] [address] Yecenia Hopper MD 02/20/2025 Travel 02/13/2025 1:40 PM EDT Office Visit [facility] [address] [place] [phone] Olga Santillan FNP Neck pain (Primary Dx) 02/13/2025 Travel 02/02/2025 9:30 AM EDT Office Visit [address] [address] Yecenia Hopper MD Health care maintenance (Primary Dx); Hypertension, unspecified type; Essential hypertension; Routine adult health maintenance; Anxiety; Depression, recurrent (CMS/HCC); Skin rash; Elevated alkaline phosphatase level 02/02/2025 Travel 01/30/2025 Results Follow-Up [address] [address] Yecenia Hopper MD Comprehensive Metabolic Panel, Lipid Panel, Standard, Vitamin D, 25-Hydroxy, Total, Immunoassay, PSA,Total 01/30/[address] [address] Bree Muller MD Hypertension, unspecified type 01/26/2025 Patient Outreach [facility] [address] [place] [address] Yecenia Hopper MD Pre-visit Planning ([facility] screening was completed on 09/19/2024) 01/26/2025 Travel 01/14/2025 Refill [facility] [address] [place] [address] Bree Muller MD 01/14/2025 Refill [facility] [address] [place] [address] Yecenia Hopper MD 01/13/2025 10:00 AM EDT Office Visit [facility] [address] [place] [address] Chris Pena MD Sebopsoriasis (Primary Dx) 01/13/2025 Travel 12/31/2024 Refill [facility] [address] [place] [address] Yecenia Pompa MD Chronic bilateral low back pain without sciatica from Last 3 Months Immunizations Immunization Administration Dates Next Due Influenza High-dose Quadriva lent Preservative Free 03/05/2022,03/28/2021 Influenza, High Dose Seasona l, Preservative Free 03/22/2024 Pfizer Covid-19 Vaccine 12+ 03/22/2024,0 07/07/2023,03/07/2021,2020 Pfizer Covid-19 Vaccine 12+ chuy-sucrose (Gil Cap) 11/05/2021,09/04/2020 Pneumococcal Conjugate PCV 13 09/18/2021 Pneumococcal Conjugate PCV 20 10/31/2022 RSV Bivalent 10/10/2024 Tdap 09/18/2021 Zoster, Recombinant 03/05/2022,12/24/2021 Family History [...] Sign Reading Time Taken Comments Blood Pressure 150/88 02/20/2025 9:22 AM EDT Pulse 60 02/20/2025 9:22 AM EDT Temperature 36.4 C (97.6 F) 02/13/2025 1:49 PM EDT Respiratory Rate 18 02/20/2025 9:22 AM EDT Oxygen Saturation 98% 02/20/2025 9:2 2 AM EDT Inhaled Oxygen Concentration - - Weight 67 kg (147 lb 9.6 oz) 02/13/2025 1:49 PM EDT dressed with shoes Height 160 cm (5' 3 ) 01/13/2025 10:23 AM EDT Body Mass Index 26.15 01/13/2025 10:23 AM EDT Plan of Treatment Upcoming Encounters Date Type Department Care Team (Late st Contact Info) Description 03/13/2025 1:30 PM EDT Clinical Support [address] [address] 05/16/2025 10:45 AM EST Office Visit [address] [address] Yecenia Hopper MD [address] [place] [phone] Health Maintenance Due Date Last Done Comments CT Colonography 1955 FIT DNA/Cologuard 1955 FIT 1955 FOBT 1955 Sigmoidoscopy 1955 COVID-19 Vaccine ( season) 2025 03/22/2024, 07/07/2023, 04/22/2022, Additional history exists Influenza Vaccine (#1) 2025 , 03/08/2024, 02/19/2023, Additional history exists SDOH Screening 09/19/2025 09/19/2024 Alcohol/Substance Use Screening 09/27/2025 09/27/2024 Depression Screening 02/02/2026 02/02/2025, 02/03/20 Tobacco Screening 02/02/2026 02/02/2025 Colonoscopy 06/08/2026 06/08/2016 Colorectal Cancer Screening 06/08/2026 Lipid Panel 01/30/2030 01/30/2025, 12/08/2023, 10/30/2023, Additional history exists DTaP/Tdap/Td Vaccines (2 - Td or Tdap) 09/19/2031 09/18/2021 Zoster Vaccines Completed 03/05/2022, 12/24/2021 Pneumococcal Vaccine: 50+ Years Completed 10/31/2022, 09/18/2021 Hepatitis C Screening Completed 05/10/2024 , 04/06/2023, 10/31/2022, Additional history exists RSV Patients and Patients Aged 60 years or older Completed 10/10/2024 HIB Vaccines Aged Out No longer eligi [...] patient's age to complete this topic Meningococcal B Vaccine Aged Out No l onger eligible based on patient's age to complete [...] Procedure Name Priority Date/Time Associated Diagnosis Comments COVID-19 ID NOW (Identy[facility]) Routine 03/01/2025 9:58 AM EDT INFLUENZA A B2 ID NOW ([facility]) Routine 03/01/2025 9:58 AM EDT STREP A NUCLEIC ACID Routine 03/01/2025 9:58 AM EDT PSA, TOTAL Routine 01/30/2025 8:44 AM EDT Elevated PSA VITAMIN D,25-OH,TOTAL,IA Routine 01/30/2025 8:44 AM EDT Abnormal radionuclide bone scan LIPID PANEL, STANDARD Routine 01/30/2025 8:44 AM EDT Hyperlipidemia, unspecified hyperlipidemia type COMPREHENSIVE METABOLIC PANEL Routine 01/30/2025 8:44 AM EDT Hyperlipidemia, unspecified hyperlipidemia type HEPATITIS C AB W/REFL TO HCV RNA, QN, PCR Routine 05/10/2024 9:00 AM EST Encounter for screening examination for sexually transmitted disease [facility] COLONOSCOPY Routine 06/08/2016 from Last 3 Months or Most Recently Relevant to Health Maintenance Results * Influenza A B2 ID NOW (Hughes) (03/01/2025 9:58 AM EDT) IDNOW SERIAL# [id number] [facility] Influenza A Negative Negative [facility] Influenza B2 Negative Negative [facility] Influenza A B2 Note See Note [facility] Comment:The Hughes ID NOW In fluenza [...] 9:58 AM EDT 03/01/2025 10:01 AM EDT Tabtor External Data Provider LAB MICROBIOLOGY - GENERAL ORDERABLES Final Result Performing Organization Address City/[facility] Co de Phone Number [facility] [address] [place] [phone] * Strep A Nucleic Acid (03/01/2025 9:58 AM EDT) IDNOW SERIAL# [id number] [facility] Strep A Nucleic Acid Negative Negative [facility] Comment:All test results mus t be correlated with clinical findings.This test has not been evaluated for monitoring treatment ofinfection.Additional follow-up testing using the culture method isrequired if the result is negative and clinical symptomspersist, or in the event of an acute rheumatic feveroutbreak. 03/01/2025 9:58 AM EDT 03/01/2025 10:01 AM EDT us Tabtor External Data Provider LAB MICROBIOLOGY - GENERAL ORDERABLES Final Result [facility] [address] [place] [address] [phone] * COVID-19 ID NOW (HUGHES) (03/01/2025 9:58 AM EDT) Pathologist [facility] IDNOW SERIAL# [id number] [facility] COVID-19 TEST Negative Negative [facility] COVID-19 NOTE See Note [facility] Comment: Results are for the identification of SARS-CoV2 RNA. TheSARS-CoV2 RNA is generally detectable in respiratory samplesduring the acute phase of infection. Positive results areindicative of the presence of SARS-CoV-2 RNA; clinicalcorrelation with patient history and other diagnosticinformation is necessary to determine patient infectionstatus. Positive results do not rule out bacterial infectionor co- infection with other viruses.Testing facilities within the [facility] and itsterritories are required to report all positive results [...] GNOSTICS ORDERABLES Final Result Performing Organization Address City/[facility]/ZIP Co de Phone Number [facility] [address] [place] [address] [phone] * Vitamin D, 25-Hydroxy, Total, Immunoassay (01/30/2025 8:44 AM EDT) Vitamin D 25-OH Total 75.4 >30 ng/mL [facility] Comment: Health Based Reference Values*< 20 ng/mL Cdtdfhxie80-40 ng/mL Insufficient> 30 ng/mL Sufficient*Sarita ELIZABETH. N Engl J Med. 2007;357:266-280There is no well-established upper level of normal vitamin Dlevels. Some laboratories use 50 ng/mL as an upper limit ofnormal. However, toxicity is patient-dependent and may occurat any level. Careful correlation with the patient'spresentation is necessary and, if there is concern forvitamin D toxicity, treatment should be consideredirrespective of the serum level.Care must be taken in interpreting Vitamin D results fromdifferent laboratories and methodologies. Published datademonstrated that results from patients undergoinghemodialysis may show a negative bias when tested withvarious automated 25-OH vitamin D assays when compared toLC-MS/MS.When testing samples from patients whose predominant form ofVitamin D is Vitamin D2, such as patients receiving VitaminD2 supplementation, results that are subtherapeutic shouldbe confirmed with another method such as LC-MS/MS. Blood Venous blood specimen / Unknown 01/30/2025 8:44 AM EDT 01/30/2025 11:03 AM EDT us Yecenia Morales MD LAB BLOOD ORDERAB LES Final Result [facility] [address] [place] [phone] * PSA,Total (01/30/2025 8:44 AM EDT) Prostate Specific Antigen 3.37 <0.05 - 4.0 ng/mL [facility] Comment:PSA methodology: Dontae mcgrath Alikristy i ChemiluminescentMicroparticle Immunoassay (CMIA) Blood Venous blood specimen / Unknown 01/30/2025 8:44 AM EDT 01/30/2025 11:03 AM EDT Yecenia Morales MD LAB BLOOD ORDERAB LES Final Result [facility] [address] [place] [phone] [phone] * (ABNORMAL) Lipid Panel, Standard (01/30/2025 8:44 AM EDT) Triglycerides 138 <150 mg/dL [facility] Comment:Slight Lipemia.Abad able Triglyceride: less than 150 mg/dLBorderline High Triglyceride 150-199 mg/dLHigh Triglyceride: 200-499 mg/dLVery High Triglyceride: greater than or equal to 5OO mg/dL Cholesterol 246(H) <200 mg/dL [facility] Comment:Desirable Cholestero l: less than 200 mg/dLBorderline High Cholesterol: 200-239 mg/dLHigh Cholesterol: greater than 239 mg/dL LDL Cholesterol Calculated 170(H) <100 mg/dL [facility] Comment:Desirable LDL: less than 100 mg/dLNear Optimal/Above Optimal LDL: 110- 129 mg/dLBorderline High LDL: 130-159 mg/dLHigh LDL: 160-189 mg/dLVery High LDL: greater than or equal to 190 mg/dL HDL Cholesterol 49 >40 mg/dL [facility] Comment:Desirable HDL: great er than 40 mg/dL Note: This HDL assay may give artificially low results in patients with liver disease. Blood Venous blood specimen / Unknown 01/30/2025 8:44 AM EDT 01/30/2025 11:03 AM EDT us Yecenia Morales MD LAB BLOOD ORDERAB LES Final Result Performing Organization Address City/[facility]/ZIP Co de Phone Number [facility] [address] [place] [address] [phone] * (ABNORMAL) Comprehensive Metabolic Panel (01/30/2025 8:44 AM EDT) Sodium 138 135 - 145 mmol/L [facility] Potassium 4.2 3.3 - 5.1 mmol/L [facility] Chloride 105 96 - 108 mmol/L [facility] Carbon Dioxide 26 22 - 29 mmol/L [facility] Anion Gap 11(L) 12 - 20 [facility] Urea Nitrogen (BUN) 22(H) 9 - 16 mg/dL [facility] Creatinine, Serum 1.18 0.5 - 1.4 mg/dL [facility] Estimated Glomerular Filt Rate >60 [facility] Comment:Chronic Kidney Disea se: Estimated GFR < 60 mL/min/1.06m9Woamrg Kidney Disease: Estimated GFR < 15 mL/min/1.73m2 Glucose 102 60 - 115 mg/dL [facility] Calcium 9.4 8.4 - 10.2 mg/dL [facility] Bilirubin, Total 0.7 0.0 - 1.0 mg/dL [facility] Aspartate Amino Transferase 39(H) 5 - 37 U/L [facility] Alanine Aminotransferase 26 0 - 40 U/L [facility] Total Protein 7.5 6.5 - 8.0 g/dL [facility] Albumin Level 4.6 3.5 - 5.0 g/dL [facility] Alkaline Phosphatase 159(H) 39 - 117 U/L [facility] Blood Venous blood specimen / Unknown 01/30/2025 8:44 AM EDT 01/30/2025 11:03 AM EDT us Yecenia Morales MD LAB BLOOD ORDERAB LES Final Result [facility] [address] [place] [phone] * Hepatitis C Antibody with Reflex to HCV, RNA, Quantitative, Real-Time PCR (05/10/2024 9:00 AM EST) Hepatitis C Antibody Nonreactive Nonreactive [facility] Comment:Antibodies to HCV no t detected; does not exclude early acuteHCV infection. Blood Venous blood specimen / Unknown 05/10/2024 9:00 AM EST 05/10/2024 11:08 AM EST us Yecenia Morales MD LAB BLOOD ORDERAB LES Final Result [facility] [address] [place] [phone] [phone] * Colonoscopy (06/08/2016) Colonoscopy Normal Normal Comment:Repeat in 10 Years 06/08/2016 us Historical Provider HEALTH MAINTENANCE Final Result from Last 3 Months or Most Recently Relevant to Health Maintenance Insurance [facility] DUAL COMPLETE [facility] STANDARD Care Teams Chief Operator Synthesis Relationship Specialty Start Date End Date Yecenia Hopper MD [address] [place] [phone] PCP - General Internal Medicine 02/17/23
--- OUTSIDE RECORDS SUMMARY | 2025-03-01 12:50 | XMS_ITS | Encounter Summary ---
Author Organization [employer] Address [address] [facility] 7t [place] [address] Care Team Providers Care Dog Barber Name Role Phone Yecenia Hopper MD Primary Care Pro vider Encounter Details Date Type Department Care Team (Latest Contact Info) Description 01/30/2025 Results Follow-Up [facility] [address] [place] [address] Yecenia Hopper MD [address] [place] [address] Comprehensive Metabolic Panel, Lipid Panel, Standard, Vitamin D, 25-Hydroxy, Total, Immunoassay, PSA,Total Social History Tobacco Use Types Packs/Day Years [...] AM EDT documented as of this encounter Functional Status * Over the past 2 weeks, how often have you been bothered by any of the following problems? Question Answer Date of Assessment Author Patient Health Questionnaire -2 Score 0 02/02/2025 10:44 AM Rhina Jacobson MA * Little interest or pleasure in doing things Answer Date of Assessment Author Not at all 02/02/2025 10:44 AM Rhina Jacobson MA * Feeling down, depressed, or hopeless Answer Date of Assessment Author Not at all 02/02/2025 10:44 AM Rhina Jacobson MA * Trouble falling or staying asleep, or sleeping too much Answer Date of Assessment Author Not at all 02/02/2025 10:44 AM Rhina Jacobson MA * Feeling tired or having little energy Answer Date of Assessment Author Not at all 02/02/2025 10:44 AM Rhina Jacobson MA * Poor appetite or overeating Answer Date of Assessment Author Not at all 02/02/2025 10:44 AM Rhina Jacobson MA * Feeling bad about yourself - or that you are a failure or have let yourself or your family down Answer Date of Assessment Author Not at all 02/02/2025 10:44 AM Rhina Jacobson MA * Trouble concentrating on things, such as reading the newspaper or watching television Answer Date of Assessment Author Not at all 02/02/2025 10:44 AM Rhina Jacobson MA * Moving or speaking so slowly that other people could have noticed? Or the opposite - being so fidgety or restless that you have been moving around a lot more than usual. Answer Date of Assessment Author Not at all 02/02/2025 10:44 AM Rhina Jacobson MA * Thoughts that you would be better off or hurting yourself in some way Answer Date of Assessment Author Not at all 02/02/2025 10:44 AM Rhina Jacobson MA * Patient Health Questionnaire-9 Score Answer Date of Assessment Author 0 02/02/2025 10:44 AM Rhina Jacobson MA * Over the last 2 weeks, how often have you been bothered by any of the following problems? Question Answer Date of Assessment Author Feeling nervous, anxious, or on edge 0 02/02/2025 10:45 AM Rhina Jacobson MA Not being able to stop or co ntrol worrying 0 02/02/2025 10:45 AM Rhina Jacobson MA Worrying too much about diff erent things 0 02/02/2025 10:45 AM Rhina Jacobson MA Trouble relaxing 0 02/02/2025 10:45 AM Rhina Jacobson MA Being so restless that it is hard to sit still 0 02/02/2025 10:45 AM Rhina Jacobson MA Becoming easily annoyed or irritable 0 02/02/2025 10:45 AM Rhina Jacobson MA Feeling afraid as if somethi ng awful might happen 0 02/02/2025 10:45 AM Rhina Jacobson MA STEPHEN-7 Total Score 0 02/02/2025 10:45 AM Rhina Jacobson MA documented as of this encounter Miscellaneous Notes * Result Encounter Note - Yecenia Morales MD - 01/30/2025 2:51 PM EDT Please call patient to advise to come to already scheduled apt with me to go over abnormal labs Thanks documented in this encounter Plan of Treatment Upcoming Encounters Date Type Department Care Team (Late st Contact Info) Description 03/13/2025 1:30 PM EDT Clinical Support [facility] [address] [place] [phone] 05/16/2025 10:45 AM EST Office Visit [address] [address] Yecenia Hopper MD [address] [place] [phone] documented as of this encounter Visit Diagnoses Not on filedocumented in this encounter Additional Health Concerns Assessment Noted Time PHQ-9 Depression Total Score: 5 03/22/20 24 11:33 AM EDT documented as of this encounter Care Teams Dog Barber Relationship Specialty Start Date End Date Yecenia Hopper MD [address] [place] [phone] PCP - General Internal Medicine 02/17/23 documented as of this encounter
--- OUTSIDE RECORDS SUMMARY | 2025-03-01 12:50 | XMS_ITS | Encounter Summary ---
Author Organization [employer] Address [address] [facility] [address] [place] [address] Care Team Providers Care Pulpit Operator Name Role Phone Yecenia Hopper MD Primary Care Pro vider Encounter Details Date Type Department Care Team (Late st Contact Info) Description 04/21/2023 Abstract [facility] [address] [place] [address] Yecenia Hopper MD [address] [place] [address] Social History Tobacco Use Types Packs/Day Years [...] Description 03/13/2025 1:30 PM EDT Clinical Support [address] [phone] 05/16/2025 10:45 AM EST Office Visit [address] [address] Yecenia Hopper MD [address] [place] [phone] documented as of this encounter Visit Diagnoses Not on filedocumented in this encounter Additional Health Concerns Assessment Noted Time PHQ-9 Depression Total Score: 0 04/06/20 9:26 AM EDT documented as of this encounter Care Teams Pulpit Operator Relationship Specialty Start Date End Date Yecenia Hopper MD [address] [place] [phone] PCP - General Internal Medicine 02/17/23 documented as of this encounter
--- OUTSIDE RECORDS SUMMARY | 2025-03-01 12:50 | XMS_ITS | Encounter Summary ---
Author Organization [employer] Address [address] [facility] 7t [place] [address] Care Team Providers Care Plastic Surgery Technician Name Role Phone Yecenia Hopper MD Primary Care Pro vider Reason for Visit * Reason Comments Med Refill Encounter Details Date Type Department Care Team ([facility] st Contact Info) Description 12/17/2023 Refill [facility] [address] [place], [place] [phone] Dora Plaza MD [address] [place] [address] Cervical paraspinal muscle spasm; Arthritis of both [...] Description 03/13/2025 1:30 PM EDT Clinical Support [facility] [address] [place] [phone] 05/16/2025 10:45 AM EST Office Visit [facility] [address] [place] [phone] Yecenia Hopper MD [address] [place] [phone] documented as of this encounter Visit Diagnoses Diagnosis Cervical paraspinal muscle spasm Spasm of muscle Arthritis of both knees documented in this encounter Additional Health Concerns Assessment Noted Time PHQ-9 Depression Total Score: 0 04/06/20 9:26 AM EDT documented as of this encounter Care Teams Plastic Surgery Technician Relationship Specialty Start Date End Date Yecenia Hopper MD [address] [place] [phone] PCP - General Internal Medicine 02/17/23 documented as of this encounter
--- OUTSIDE RECORDS SUMMARY | 2025-03-01 12:50 | XMS_ITS | Clinical Summary ---
Author Organization [facility] Address [address] [place] [address] Phone Care Team Providers Care Puller Machine Name Role Phone Yecenia Hopper MD Primary Care Pro vider Allergies No known active allergies Medications traZODone (DESYREL) 50 MG tablet Take 50 mg by mouth nightly at bedtime as needed. Active terazosin (HYTRIN) 10 MG capsule Take 10 mg by mouth nightly at bedtime. Active omeprazole (PRILOSEC) 20 MG capsule Take 20 mg by mouth as needed. Active meloxicam (MOBIC) 15 MG tablet Take 15 mg by mouth as needed. 09/25/2023 Active meclizine (ANTIVERT) 25 mg tablet Take 25 mg by mouth as needed. 11/05/2023 Active LORazepam (ATIVAN) 0.5 MG tablet Take 0.5 mg by mouth 2 (two) times a day as needed. Active loratadine (CLARITIN) 10 mg tablet Take 10 mg by mouth as needed. Active gabapentin (NEURONTIN) 600 MG tablet Take 600 mg by mouth 3 (three) times a day. Active fluticasone propionate (FLONASE) 50 mcg/actuation nasal spray 2 sprays by Nasal route as needed. Active FLUoxetine (PROZAC) 20 MG capsule Take 20 mg by mouth daily. Active famotidine (PEPCID) 20 MG tablet Take 20 mg by mouth as needed. 05/08/2023 Active fexofenadine (ROX) 180 MG tablet Take 180 mg by mouth as needed. 09/11/2023 Active cetirizine (ZYRTEC) 10 MG tablet Take 10 mg by mouth as needed. 11/10/2023 Active albuterol 90 mcg/actuation inhaler Inhale 2 puffs into the lungs every 6 (six) hours as needed. 11/05/2023 Active atorvastatin (LIPITOR) 40 MG tablet Take 40 mg by mouth once. 07/13/2023 Active Active Problems Problem Noted Date Diagnosed Date Osteopenia of multiple sites 03/22/2024 Assessment & Plan (06/28/2024 12:10 PM EST): Biochemical workup did not show any secondary causes for osteopenia. His FRAX score is not elevated so he does not require antiresorptive medications. He is not taking any vitamin D but he was deficient in the past so I will check vitamin D levels for follow-up visit and comprehensive again. Assessment & Plan (03/22/2024 2:14 PM EDT): Based on DEXA scan the patient has osteopenia. His FRAX score is not elevated and based on this he would not require antiresorptive medications. However if his alkaline phosphatase is elevated due to Paget's disease then the therapy would be bisphosphonates which will decrease the alkaline phosphatase levels. At this point I am going to request biochemical workup for evaluation of secondary causes of osteoporosis and I advised the patient to do lab work fasting. Elevated alkaline phosphatase level 12/21/2023 Assessment & Plan (06/28/2024 12:10 PM EST): Elevated alkaline phosphatase could be due to osteopenia or potentially Paget's. But he is completely asymptomatic. Some hesitant to prescribe bisphosphonates if he is asymptomatic. Furthermore he does not require bisphosphonates for osteopenia because his FRAX score is not elevated. I have requested the bone scan results because I have never actually seen the report I have only read what was written in the primary care's notes. I think that we should continue to observe for now. Assessment & Plan (03/22/2024 2:18 PM EDT): The patient was found to have osteopenia. Osteopenia can potentially increase alkaline phosphatase. The bone scan could be consistent with Paget's disease because he does not appear to have osteomalacia, hyperparathyroidism or renal osteodystrophy. Management will be the use of bisphosphonates. At this point my impression could be that the patient's alkaline phosphatase could be elevated due to osteopenia or possibly Paget's disease. For osteopenia he does not require therapy because his FRAX score is not elevated but if he does have Paget's disease we could treat with bisphosphonates. In the past I stated that I did not think he had Paget's disease because he has does not appear to be symptomatic. However it is hard to say what the etiology is of the elevated alkaline phosphatase we have ruled out a couple of other conditions. I will hold off prescribing any medications I am going to proceed with workup of osteopenia. Assessment & Plan (12/21/2023 4:11 PM EDT): The patient has elevated alkaline phosphatase and it does appear to be bone specific not a liver source. It is possible that this may be elevated due to vitamin D deficiency or osteomalacia. On most recent comprehensive GFR was slightly below the reference range. I suspect the patient may have secondary hyperparathyroidism due to vitamin D deficiency. He does not impress me of having Paget's disease because although he does have occasional back and knee pain. He does not complain of chronic pain and has very good range of motion. Elevated alkaline phosphatase also can be seen with osteoporosis will request DXA scan in addition to biochemical workup. Alkaline phosphatase may be elevated with malignancy but this would likely have been picked up on the bone scan that was recently done. Family History Medical History Relation Comments Diabetes Father Hypertension Father Alzheimer's disease Mother Relation Status Comments Father Mother Social History Tobacco Use Types Packs/Day Years [...] Sign Reading Time Taken Comments Blood Pressure 132/86 06/28/2024 11:47 AM EST Pulse 58 06/28/2024 11:47 AM EST Temperature - - Respiratory Rate - - Oxygen Saturation 96% 06/28/2024 11: 47 AM EST Inhaled Oxygen Concentration - - Weight 68.9 kg (151 lb 12.8 oz) 025 11:47 AM EST Height 156.2 cm (5' 1.5 ) 06/28/2024 11 :47 AM EST Body Mass Index 28.22 06/28/2024 11:47 AM EST Plan of Treatment Upcoming Encounters Date Type Department Care Team (Late st Contact Info) Description 06/28/2025 10:10 AM EST Office Visit [facility] [address] [place] [phone] Domenic Mendoza DO [address] [place] [phone] [email or web address] Health Maintenance Due Date Last Done Comments DEPRESSION SCREENING 1967 HEPATITIS C SCREENING 12/17/1973 COLOGUARD 12/17/2000 COLONOSCOPY 12/17/2000 COLORECTAL CANCER SCREENING 12/17/2000 FIT TEST 12/17/2000 FOBT 12/17/2000 SIGMOIDOSCOPY 12/17/2000 VIRTUAL COLONOSCOPY 12/17/2000 PNEUMOCOCCAL VACCINES (50+ years) (1 of 1 - PCV) 12/17/2005 ZOSTER VACCINES (1 of 2) 12/17/2005 INFLUENZA VACCINE (#1) 2025 COVID-19 VACCINE (1 - 2023-2 5 season) 2025 SCREENING FOR DIABETES 04/04/2027 04/04/2024 LIPID PANEL 05/10/2029 05/10/2024, 10/30/2023 RSV VACCINE (1 - 1-dose 75+ series) 12/17/2030 Adult Td,Tdap Booster 09/19/2031 09/18/2021 SMOKING STATUS SCREENING (On ce After 26 Yrs) Completed 06/28/2024 HEPATITIS A VACCINES Aged Out No long er eligible based on patient's age to complete this topic HIB VACCINES Aged Out No longer eligi ble based on patient's age to complete this topic MENINGOCOCCAL VACCINES (ACWY) Aged Out No longer eligible based on patient's age to complete this topic MENINGOCOCCAL VACCINES (B) Aged Out N o longer eligible based on patient's age to complete this topic Medical Devices Not on file Insurance MEDICARE PART A & B [facility] DUAL MEDICARE REPLACEMENT MEDICARE PART A & B DUAL MEDICARE REPLACEMENT MEDICARE PART A & B DUAL MEDICARE REPLACEMENT MEDICARE PART A & B DUAL MEDICARE REPLACEMENT MEDICARE PART A & B DUAL MEDICARE REPLACEMENT MEDICARE PART A & B [facility] DUAL MEDICARE REPLACEMENT Care Teams Puller Machine Relationship Specialty Start Date End Date Yecenia Hopper MD [address] [place] [phone] PCP - General Internal Medicine 07/31/23 Additional Source Comments The information contained in this document represents components of the legal health record. It is not the complete legal health record.[facility]
--- OUTSIDE RECORDS SUMMARY | 2025-03-01 12:50 | XMS_ITS | Clinical Summary ---
Author Organization [facility] Address [address] [facility] [address] [place] [address] Phone Care Team Providers Care Rotary Drier Operator Name Role Phone Lisy Ford RN Primary [...] [place] Care Teams Rotary Drier Operator Relationship Specialty Start Date End Date Lisy Ford RN PCP - General Family Medicine 10/15/21
== END 2025-03-01 11:44 | disposition home or self-care (01) ==
PROVIDERS: Registered Nurse Emergency; Emergency Provider Emergency Medicine; PCP Student in an Organized Health Care Education/Training Program
DX: J02.9 Acute pharyngitis, unspecified (principal); M79.10 Myalgia, unspecified site; R05.9 Cough, unspecified; Z11.52 Encounter for screening for COVID-19
CPT/HCPCS: 87502; 87635; 87651; 99283; 99284

== ENCOUNTER 2025-03-03 09:13 | Outpatient (REF) | payer OTHER, SELFPAY ==
[2025-03-03 09:42] LABS: MANUAL DIFF FLAG NO
--- OUTSIDE RECORDS SUMMARY | 2025-03-03 10:00 | XMS_ITS | Encounter Summary ---
Author Organization [employer] Address [address] [facility] 7t [place] [address] Care Team Providers Care Strap Cutter Name Role Phone Yecenia Hopper MD Primary Care Pro vider Encounter Details Date Type Department Care Team (Late st Contact Info) Description 05/17/2024 Orders Only [facility] [address] [place], [place] [phone] Damari Gonsalez MD [address] [place] [address] Social History Tobacco Use Types Packs/Day Years [...] Description 03/13/2025 1:30 PM EDT Clinical Support [address] [address] 05/16/2025 10:45 AM EST Office Visit [address] [address] Yecenia Hopper MD [address] [place] [phone] documented as of this encounter Visit Diagnoses Not on filedocumented in this encounter Additional Health Concerns Assessment Noted Time PHQ-9 Depression Total Score: 5 03/22/20 24 11:33 AM EDT documented as of this encounter Care Teams Strap Cutter Relationship Specialty Start Date End Date Yecenia Hopper MD [address] [place] [phone] PCP - General Internal Medicine 02/17/23 documented as of this encounter
--- OUTSIDE RECORDS SUMMARY | 2025-03-03 10:00 | XMS_ITS | Encounter Summary ---
Author Organization [employer] Address [address] [facility] 7t [place] [address] Care Team Providers Care Safety Grooving Machine Operator Name Role Phone Yecenia Hopper MD Primary Care Pro vider Reason for Visit * Reason Comments Med Refill Encounter Details Date Type Department Care Team ([facility] st Contact Info) Description 12/17/2023 Refill [facility] [address] [place], [place] [phone] Dora Plaza MD 230 [place] [address] Cervical paraspinal muscle spasm; Arthritis of both [...] Description 03/13/2025 1:30 PM EDT Clinical Support [facility] [address] [place] [phone] 05/16/2025 10:45 AM EST Office Visit [facility] [address] [place] [phone] Yecenia Hopper MD [address] [place] [phone] documented as of this encounter Visit Diagnoses Diagnosis Cervical paraspinal muscle spasm Spasm of muscle Arthritis of both knees documented in this encounter Additional Health Concerns Assessment Noted Time PHQ-9 Depression Total Score: 0 04/06/20 9:26 AM EDT documented as of this encounter Care Teams Safety Grooving Machine Operator Relationship Specialty Start Date End Date Yecenia Hopper MD [address] [place] [phone] PCP - General Internal Medicine 02/17/23 documented as of this encounter
--- OUTSIDE RECORDS SUMMARY | 2025-03-03 10:00 | XMS_ITS | Encounter Summary ---
Author Organization [employer] Address [address] [facility] 7t [place] [address] Care Team Providers Care Angle Dozer Operator Name Role Phone Yecenia Hopper MD Primary Care Pro vider Reason for Visit * Reason Comments Med Refill Encounter Details Date Type Department Care Team ([facility] st Contact Info) Description 12/31/2024 Refill [facility] 230 [place], [place] [phone] Yecenia Pompa MD 230 [place] [address] Chronic bilateral low back pain without sciatica [...] Description 03/13/2025 1:30 PM EDT Clinical Support [facility] [address] [place] [phone] 05/16/2025 10:45 AM EST Office Visit [facility] [address] [place] [phone] Yecenia Hopper MD [address] [place] [phone] documented as of this encounter Visit Diagnoses Diagnosis Chronic bilateral low back pain without sciatica documented in this encounter Additional Health Concerns Assessment Noted Time PHQ-9 Depression Total Score: 5 03/22/20 24 11:33 AM EDT documented as of this encounter Care Teams Angle Dozer Operator Relationship Specialty Start Date End Date Yecenia Hopper MD [address] [place] [phone] PCP - General Internal Medicine 02/17/23 documented as of this encounter
--- OUTSIDE RECORDS SUMMARY | 2025-03-03 10:00 | XMS_ITS | Encounter Summary ---
Author Organization [employer] Address [address] [facility] 7t [place] [address] Care Team Providers Care Mechanical Integrity Engineer Name Role Phone Yecenia Hopper MD Primary Care Pro vider Reason for Visit * Reason Comments Med Refill Encounter Details Date Type Department Care Team ([facility] st Contact Info) Description 10/11/2023 Refill [facility] [address] [place] [address] Yecenia Hopper MD [address] [place] [address] Chronic bilateral low back pain without sciatica [...] [facility] [address] [place] [phone] 05/16/2025 10:45 AM EST Office Visit [address] [address] Yecenia Hopper MD [address] [place] [phone] documented as of this encounter Visit Diagnoses Diagnosis Chronic bilateral low back pain without sciatica documented in this encounter Additional Health Concerns Assessment Noted Time PHQ-9 Depression Total Score: 0 04/06/20 9:26 AM EDT documented as of this encounter Care Teams Mechanical Integrity Engineer Relationship Specialty Start Date End Date Yecenia Hopper MD [address] [place] [phone] PCP - General Internal Medicine 02/17/23 documented as of this encounter
--- OUTSIDE RECORDS SUMMARY | 2025-03-03 10:00 | XMS_ITS | Encounter Summary ---
Author Organization [employer] Address [address] [facility] 7t [place] [address] Care Team Providers Care Cellular Tower Climber Name Role Phone Yecenia Hopper MD Primary Care Pro vider Encounter Details Date Type Department Care Team (Latest Contact Info) Description 01/30/2025 Results Follow-Up [facility] [address] [place] [address] Yecenia Hopper MD [address] [place] [address] Comprehensive Metabolic Panel, Lipid Panel, Standard, Vitamin [...] Description 03/13/2025 1:30 PM EDT Clinical Support [facility] [address] [place] [phone] 05/16/2025 10:45 AM EST Office Visit [address] [address] Yecenia Hopper MD [address] [place] [address] documented as of this encounter Visit Diagnoses Not on filedocumented in this encounter Additional Health Concerns Assessment Noted Time PHQ-9 Depression Total Score: 5 03/22/20 24 11:33 AM EDT documented as of this encounter Care Teams Cellular Tower Climber Relationship Specialty Start Date End Date Yecenia Hopper MD [address] [place] [phone] PCP - General Internal Medicine 02/17/23 documented as of this encounter
--- OUTSIDE RECORDS SUMMARY | 2025-03-03 10:00 | XMS_ITS | Clinical Summary ---
Author Organization [employer] Address [address] [facility] 7t [place] [address] Care Team Providers Care Lens Examiner Name Role Phone Yecenia Hopper MD Primary [...] mL 07/07/19 24 Active Fluocinolone Acetonide Scalp (Riverbend-Smoothe /FS Scalp) 0.01 % oilIndications :Sebopsoriasis Apply [...] well Dental home: more than a year, [facility] dental, advised patient to make appointment on [...] Data 02/20/2025 9:30 AM EDT Clinical Support [address] [address] Zeinab Dunn RN Essential hypertension 02/20/2025 Orders Only [address] [address] Yecenia Hopper MD 02/20/2025 Travel 02/13/2025 1:40 PM EDT Office Visit [facility] [address] [place] [address] Olga Santillan FNP Neck pain (Primary Dx) 02/13/2025 Travel 02/02/2025 9:30 AM EDT Office Visit [address] [address] Yecenia Hopper MD Health care maintenance (Primary Dx); Hypertension, unspecified type; Essential hypertension; Routine adult health maintenance; Anxiety; Depression, recurrent (CMS/HCC); Skin rash; Elevated alkaline phosphatase level 02/02/2025 Travel 01/30/2025 Results Follow-Up [address] [address] Yecenia Hopper MD Comprehensive Metabolic Panel, Lipid Panel, Standard, Vitamin D, 25-Hydroxy, Total, Immunoassay, PSA,Total 01/30/[address] [address] Bree Muller MD Hypertension, unspecified type 01/26/2025 Patient Outreach [facility] MEDICINE [address] [place] [address] Yecenia Hopper MD Pre-visit Planning ([facility] screening was completed on 09/19/2024) 01/26/2025 Travel 01/14/2025 Refill [facility] MEDICINE [address] [place] [address] Bree Muller MD 01/14/2025 Refill [facility] MED[facility]INE [address] [place] [address] Yecenia Hopper MD 01/13/2025 10:00 AM EDT Office Visit [facility] MEDICINE [address] [place] [address] Chris Pena MD Sebopsoriasis (Primary Dx) 01/13/2025 Travel 12/31/2024 Refill [facility] MEDICINE [address] [place] [address] Yecenia Pompa MD Chronic bilateral low back [...] Description 03/13/2025 1:30 PM EDT Clinical Support [address] [address] 05/16/2025 10:45 AM EST Office Visit [address] [address] Yecenia Hopper MD [address] [place] [address] Health Maintenance Due Date Last Done Comments [...] Date/Time Associated Diagnosis Comments COVID-19 ID NOW ([employer]) Routine 03/01/2025 9:58 AM EDT INFLUENZA A B2 ID NOW ([employer]) Routine 03/01/2025 9:58 AM EDT STREP A [...] (Hughes) (03/01/2025 9:58 AM EDT) IDNOW SERIAL# [id number] [facility] Influenza A Negative Negative [facility] Influenza B2 Negative Negative [facility] Influenza A B2 Note See Note [facility] Comment:The Hughes ID NOW [...] 9:58 AM EDT 03/01/2025 10:01 AM EDT [employer] External Data Provider LAB MICROBIOLOGY - GENERAL ORDERABLES Final Result Performing Organization Address City/[facility] Co de Phone Number [facility] [address] [place] [phone] * Strep A Nucleic Acid (03/01/2025 9:58 AM EDT) IDNOW SERIAL# [id number] [facility] Strep A Nucleic Acid Negative Negative [facility] Comment:All test results mus t be correlated with clinical findings.This test has not been evaluated for monitoring treatment ofinfection.Additional follow-up testing using the culture method isrequired if the result is negative and clinical symptomspersist, or in the event of an acute rheumatic feveroutbreak. 03/01/2025 9:58 AM EDT 03/01/2025 10:01 AM EDT us [employer] External Data Provider LAB MICROBIOLOGY - GENERAL ORDERABLES Final Result [facility] [address] [place] [address] [phone] * COVID-19 ID NOW (HUGHES) (03/01/2025 9:58 AM EDT) Pathologist [facility] IDNOW SERIAL# [id number] [facility] COVID-19 TEST Negative Negative [facility] COVID-19 NOTE See Note [facility] Comment: Results are for the identification of SARS-CoV2 RNA. TheSARS-CoV2 RNA is generally detectable in respiratory samplesduring the acute phase of infection. Positive results areindicative of the presence of SARS-CoV-2 RNA; clinicalcorrelation with patient history and other diagnosticinformation is necessary to determine patient infectionstatus. Positive results do not rule out bacterial infectionor co- infection with other viruses.Testing facilities within the [facility] and itsterritories are required to report all [...] GNOSTICS ORDERABLES Final Result Performing Organization Address City/[facility]/ZIP Co de Phone Number [facility] [address] [place] [phone] * Vitamin D, 25-Hydroxy, Total, Immunoassay (01/30/2025 8:44 AM EDT) Vitamin D 25-OH Total 75.4 >30 ng/mL [facility] Comment: Health Based Reference Values*< 20 ng/mL Sscciccxi19-74 ng/mL Insufficient> 30 ng/mL Sufficient*Sarita ELIZABETH. N [...] MD LAB BLOOD ORDERAB LES Final Result [facility] [address] [place] [phone] * PSA,Total (01/30/2025 8:44 AM EDT) Prostate Specific Antigen 3.37 <0.05 - 4.0 ng/mL [facility] Comment:PSA methodology: Dontae mcgrath Alikristy i ChemiluminescentMicroparticle Immunoassay (CMIA) Blood Venous blood specimen / Unknown 01/30/2025 8:44 AM EDT 01/30/2025 11:03 AM EDT Yecenia Morales MD LAB BLOOD ORDERAB LES Final Result [facility] [address] [place] [phone] * (ABNORMAL) Lipid Panel, Standard (01/30/2025 8:44 AM EDT) Triglycerides 138 <150 mg/dL [facility] Comment:Slight Lipemia.Abad able Triglyceride: less than 150 mg/dLBorderline High Triglyceride 150-199 mg/dLHigh Triglyceride: 200-499 mg/dLVery High Triglyceride: greater than or equal to 5OO mg/dL Cholesterol 246(H) <200 mg/dL [facility] Comment:Desirable Cholestero l: less than 200 mg/dLBorderline High Cholesterol: 200-239 mg/dLHigh Cholesterol: greater than 239 mg/dL LDL Cholesterol Calculated 170(H) <100 mg/dL [facility] Comment:Desirable LDL: less than 100 mg/dLNear Optimal/Above Optimal LDL: 110- 129 mg/dLBorderline High LDL: 130-159 mg/dLHigh LDL: 160-189 mg/dLVery High LDL: greater than or equal to 190 mg/dL HDL Cholesterol 49 >40 mg/dL [facility] Comment:Desirable HDL: great er than 40 mg/dL Note: This HDL assay may give artificially low results in patients with liver disease. Blood Venous blood specimen / Unknown 01/30/2025 8:44 AM EDT 01/30/2025 11:03 AM EDT us Yecenia Morales MD LAB BLOOD ORDERAB LES Final Result Performing Organization Address City/[facility]/ZIP Co de Phone Number [facility] [address] [place] [phone] [phone] * (ABNORMAL) Comprehensive Metabolic Panel (01/30/2025 8:44 AM EDT) Sodium 138 135 - 145 mmol/L [facility] Potassium 4.2 3.3 - 5.1 mmol/L [facility] Chloride 105 96 - 108 mmol/L [facility] Carbon Dioxide 26 22 - 29 mmol/L [facility] Anion Gap 11(L) 12 - 20 [facility] Urea Nitrogen (BUN) 22(H) 9 - 16 mg/dL [facility] Creatinine, Serum 1.18 0.5 - 1.4 mg/dL [facility] Estimated Glomerular Filt Rate >60 [facility] Comment:Chronic Kidney Disea se: Estimated GFR < 60 mL/min/[id number] Kidney Disease: Estimated GFR < 15 mL/min/1.73m2 Glucose 102 60 - 115 mg/dL [facility] Calcium 9.4 8.4 - 10.2 mg/dL [facility] Bilirubin, Total 0.7 0.0 - 1.0 mg/dL [facility] Aspartate Amino Transferase 39(H) 5 - 37 U/L [facility] Alanine Aminotransferase 26 0 - 40 U/L [facility] Total Protein 7.5 6.5 - 8.0 g/dL [facility] Albumin Level 4.6 3.5 - 5.0 g/dL [facility] Alkaline Phosphatase 159(H) 39 - 117 U/L [facility] Blood Venous blood specimen / Unknown 01/30/2025 8:44 AM EDT 01/30/2025 11:03 AM EDT us Yecenia Morales MD LAB BLOOD ORDERAB LES Final Result [facility] [address] [place] [phone] * Hepatitis C Antibody with Reflex to HCV, RNA, Quantitative, Real-Time PCR (05/10/2024 9:00 AM EST) Hepatitis C Antibody Nonreactive Nonreactive [facility] Comment:Antibodies to HCV no t detected; does not exclude early acuteHCV infection. Blood Venous blood specimen / Unknown 05/10/2024 9:00 AM EST 05/10/2024 11:08 AM EST us Yecenia Morales MD LAB BLOOD ORDERAB LES Final Result [facility] [address] [place] [phone] * Colonoscopy (06/08/2016) Colonoscopy Normal Normal Comment:Repeat in 10 Years 06/08/2016 us Historical Provider HEALTH MAINTENANCE Final Result from Last 3 Months or Most Recently Relevant to Health Maintenance Insurance [facility] [employer] Care Teams Lens Examiner Relationship Specialty Start Date End Date Yecenia Hopper MD [address] [place] [phone] PCP - General Internal Medicine 02/17/23
--- OUTSIDE RECORDS SUMMARY | 2025-03-03 10:00 | XMS_ITS | Encounter Summary ---
Author Organization [employer] Address [address] [place] [address] 7 [place] [address] Care Team Providers Care Parts Driver Name Role Phone Jj Robbins Primary Care Provider Unavail able Yecenia Hopper MD Primary Care Pro vider Reason for Visit * Reason Comments Med Refill Encounter Details Date Type Department Care Team (Late Contact Info) Description 09/10/2022 Refill [facility] PEDS [address] [place], [place] [phone] Jj Robbins AGNP Chronic bilateral low back [...] Upcoming Encounters Date Type Department Care Team (Special [facility] Contact Info) Description 03/13/2025 1:30 PM EDT Clinical Support [facility] MEDICINE [address] [place] [address] 05/16/2025 10:45 AM EST Office Visit [facility] MED[facility] [address] [place] [phone] Yecenia Hopper MD [address] [place] [phone] documented as of this encounter Visit Diagnoses Diagnosis Chronic bilateral low back pain without sciatica documented in this encounter Care Teams Parts Driver Relationship Specialty Start Date End Date Jj Robbins AGNP PCP - General Family Medicine 03/28/22 02/16/23 Yecenia Hopper MD [address] [place] [address] [phone] PCP - General Internal Medicine 02/17/23 documented as of this encounter
--- OUTSIDE RECORDS SUMMARY | 2025-03-03 10:00 | XMS_ITS | Encounter Summary ---
Author Organization [facility] Address [address] [facility] [address] [place] [phone] Phone Care Team Providers Care Social Media Assistant Name Role Phone Yecenia Hopper MD Primary Care Pro vider Encounter Details Date Type Department Care Team (Late st Contact Info) Description 07/07/2024 Ancillary Orders [address] [address] System, Provider Not In, PhD Partners [address] [address] Social History Tobacco Use Types Packs/Day Years [...] AM EST Office Visit [facility] [address] [place] [address] Domenic Mendoza DO [address] [place] [address] [email or web address] documented as of this encounter Results * [...] on filedocumented in this encounter Care Teams Social Media Assistant Relationship Specialty Start Date End Date Yecenia Hopper MD [address] [place] [phone] PCP - General Internal Medicine 07/31/23 documented as of this encounter Additional Source Comments The information contained in this document represents components of the legal health record. It is not the complete legal health record.[facility]
--- OUTSIDE RECORDS SUMMARY | 2025-03-03 10:00 | XMS_ITS | Clinical Summary ---
Author Organization [facility] Address [address] [facility] [address] [place] [address] Phone Care Team Providers Care Cake Press Operator Helper Name Role Phone Lisy Ford RN Primary [...] [place] Care Teams Cake Press Operator Helper Relationship Specialty Start Date End Date Lisy Ford RN PCP - General Family Medicine 10/15/21
--- OUTSIDE RECORDS SUMMARY | 2025-03-03 10:00 | XMS_ITS | Encounter Summary ---
Author Organization [employer] Address [address] [facility] 7t [place] [address] Care Team Providers Care Tie Bucker Name Role Phone Yecenia Hopper MD Primary Care Pro vider Encounter Details Date Type Department Care Team ([facility] st Contact Info) Description 03/01/2025 Orders Only [...] Description 03/13/2025 1:30 PM EDT Clinical Support [facility] [address] [place] [phone] 05/16/2025 10:45 AM EST Office Visit [address] [address] Yecenia Hopper MD [address] [place] [phone] documented as of this encounter Procedures Procedure Name Priority Date/Time Associated Diagnosis Comments INFLUENZA A B2 ID NOW (HUGHES) Routine 03/01/2025 9:58 AM EDT STREP A NUCLEIC ACID Routine 03/01/2025 9:58 AM EDT COVID-19 ID NOW (HUGHES) Routine 03/01/2025 9:58 AM EDT documented in this encounter Results * Influenza A B2 ID NOW (Hughes) (03/01/2025 9:58 AM EDT) IDNOW SERIAL# [id number] [facility] Influenza A Negative Negative [facility] Influenza B2 Negative Negative [facility] Influenza A B2 Note See Note [facility] Comment:The Hughes ID NOW In [...] LAB MICROBIOLOGY - GENERAL ORDERABLES Final Result [facility] [address] [place] [phone] * COVID-19 ID NOW ([employer]) (03/01/2025 9:58 AM EDT) IDNOW SERIAL# [id number] [facility] COVID-19 TEST Negative Negative [facility] COVID-19 NOTE See Note [facility] Comment: Results are for the identification of SARS-CoV2 RNA. TheSARS-CoV2 RNA is generally detectable in respiratory samplesduring the acute phase of infection. Positive results areindicative of the presence of SARS-CoV-2 RNA; clinicalcorrelation with patient history and other diagnosticinformation is necessary to determine patient infectionstatus. Positive results do not rule out bacterial infectionor co- infection with other viruses.Testing facilities within the [facility] and [facility] are required to report all positive results [...] GNOSTICS ORDERABLES Final Result Performing Organization Address [facility] [place] de Phone Number [facility] [address] [place] [phone] * Strep A Nucleic Acid (03/01/2025 9:58 AM EDT) IDNOW SERIAL# [id number] [facility] Strep A Nucleic Acid Negative Negative [facility] Comment:All test results mus t [...] GENERAL ORDERABLES Final Result Performing Organization Address [facility] [place] de Phone Number [facility] [address] [place] [phone] documented in this encounter Visit Diagnoses Not on filedocumented in this encounter Additional Health Concerns Assessment Noted Time PHQ-9 Depression Total Score: 0 02/03/20 25 10:44 AM EDT documented as of this encounter Care Teams Tie Bucker Relationship Specialty Start Date End Date Yecenia Hopper MD [address] [place] [address] PCP - General Internal Medicine 02/17/23 documented as of this encounter
--- OUTSIDE RECORDS SUMMARY | 2025-03-03 10:00 | XMS_ITS | Clinical Summary ---
Author Organization [facility] Address [address] [place] [address] Phone Care Team Providers Care Medical Records Specialist Name Role Phone Yecenia Hopper MD Primary [...] 10:10 AM EST Office Visit [facility] [address] [place] [phone] Domenic Mendoza DO [address] [place] [phone] [email or web address] Health Maintenance Due Date Last Done Comments [...] file Insurance MEDICARE PART A & B [facility] DUAL MEDICARE REPLACEMENT MEDICARE PART A & B DUAL MEDICARE REPLACEMENT MEDICARE PART A & B DUAL MEDICARE REPLACEMENT MEDICARE PART A & B DUAL MEDICARE REPLACEMENT MEDICARE PART A & B DUAL MEDICARE REPLACEMENT MEDICARE PART A & B [facility] DUAL MEDICARE REPLACEMENT Care Teams Medical Records Specialist Relationship Specialty Start Date End Date Yecenia Hopper MD [address] [place] [phone] PCP - General Internal Medicine 07/31/23 Additional Source Comments The information contained in this document represents components of the legal health record. It is not the complete legal health record.[facility]
--- OUTSIDE RECORDS SUMMARY | 2025-03-03 10:00 | XMS_ITS | Encounter Summary ---
Author Organization [employer] Address [address] [place] [address] 7 [place] [address] Care Team Providers Care Tipping Machine Operator Automatic Name Role Phone Jj Robbins Primary Care Provider Unavail able Yecenia Hopper MD Primary Care Pro vider Encounter Details Date Type Department Care Team (Latest Contact Info) Description 04/17/2021 Abstract [facility] Dental, Provider, DDS Social History Tobacco [...] Description 03/13/2025 1:30 PM EDT Clinical Support [facility] [address] [place] [phone] 05/16/2025 10:45 AM EST Office Visit [facility] [address] [place] [phone] Yecenia Hopper MD [address] [place] [phone] documented as of this encounter Visit Diagnoses Not on filedocumented in this encounter Care Teams Tipping Machine Operator Automatic Relationship Specialty Start Date End Date Jj Robbins AGNP PCP - General Family Medicine 03/28/22 02/16/23 Yecenia Hopper MD [address] [place] [phone] PCP - General Internal Medicine 02/17/23 documented as of this encounter
--- OUTSIDE RECORDS SUMMARY | 2025-03-03 10:00 | XMS_ITS | Encounter Summary ---
Author Organization [employer] Address [address] [facility] 7t [place] [address] Care Team Providers Care Machine Operator Name Role Phone Yecenia Hopper MD Primary Care Pro vider Encounter Details Date Type Department Care Team (Late st Contact Info) Description 04/21/2023 Abstract [facility] [address] [place] [address] Yecenia Hopper MD [address] [place] [address] Social History Tobacco Use Types Packs/Day Years [...] Description 03/13/2025 1:30 PM EDT Clinical Support [address] [address] 05/16/2025 10:45 AM EST Office Visit [address] [address] Yecenia Hopper MD [address] [place] [phone] documented as of this encounter Visit Diagnoses Not on filedocumented in this encounter Additional Health Concerns Assessment Noted Time PHQ-9 Depression Total Score: 0 04/06/20 9:26 AM EDT documented as of this encounter Care Teams Machine Operator Relationship Specialty Start Date End Date Yecenia Hopper MD [address] [place] [phone] PCP - General Internal Medicine 02/17/23 documented as of this encounter
[2025-03-03 10:50] LABS: Hematocrit 49.3 % (42.0-52.0); Hemoglobin 16.2 g/dl (14.0-18.0); Imm Gran Abs Auto 0.03 X10*3/uL (0.00-0.03); Imm Gran Pct Auto 0.4 % (0.0-0.4); Lymphocytes Absolute Auto 2.1 X10*3/uL (1.2-4.9); Mean Corpuscular HGB Conc 32.9 g/dl (31.0-36.0); Mean Corpuscular Hemoglobin 30.1 pg (27.0-33.0); Mean Corpuscular Volume 91.6 fL (80.0-98.0); NRBC Abs Auto 0.000 X10*3/uL (0.0-0.012); NRBC Pct Auto 0.0 /100WBC (0.0-0.2); Platelet Count 255 X10*3/uL (160-400); Red Blood Count 5.38 X10*6/uL (4.60-5.80); White Blood Count 6.8 X10*3/uL (4.8-10.8)
[2025-03-03 11:32] LABS: Alanine Aminotransferase 39 U/L (0-40); Albumin Level 4.9 g/dL (3.5-5.0); Alkaline Phosphatase 186 U/L (39-117); Anion Gap 11 (12-20); Aspartate Amino Transferase 31 U/L (5-37); Blood Urea Nitrogen 12 mg/dL (9-16); Calcium 9.5 mg/dL (8.4-10.2); Carbon Dioxide 29 mmol/L (22-29); Chloride 107 mmol/L (96-108); Cholesterol 147 mg/dL (<200); Estimated Glomerular Filt Rate > 60; HDL Cholesterol 45 mg/dL (>40); Potassium 4.5 mmol/L (3.3-5.1); Sodium 142 mmol/L (135-145); Total Protein 7.7 g/dL (6.5-8.0); Triglycerides 84 mg/dL (<150)
[2025-03-03 11:37] LABS: Prostate Specific Antigen 3.21 ng/mL (<0.05-4.0)
[2025-03-03 11:41] LABS: HBsAGNum1 0.24 S/CO (0.00-0.99); HIV Num 1 0.22 S/CO (0.00-0.99); Hepatitis B Surface Antigen Negative (Negative); ~HepC Num1 0.09 S/CO (0.00-0.79); ~Hepatitis C Antibody Nonreactive (Nonreactive)
[2025-03-03 11:42] LABS: Syphilis Screen Nonreactive (Nonreactive)
[2025-03-03 12:18] LABS: Microalbum/Creatinine Ratio Ur 12.2 ug/mg cr (<30)
[2025-03-03 12:49] LABS: CT PCR Urine NOT DETECTED (Not Detect.); NG PCR Urine NOT DETECTED (Not Detect.)
== END 2025-03-03 09:14 | disposition home or self-care (01) ==
LOC: HO.LAB 09:13
PROVIDERS: PCP Student in an Organized Health Care Education/Training Program; Visit Provider Urology
DX: Z00.00 Encounter for general adult medical examination without abnormal findings (principal); Z12.5 Encounter for screening for malignant neoplasm of prostate; N32.0 Bladder-neck obstruction; Z11.4 Encounter for screening for human immunodeficiency virus [HIV]; Z13.1 Encounter for screening for diabetes mellitus; Z13.29 Encounter for screening for other suspected endocrine disorder; Z13.21 Encounter for screening for nutritional disorder; Z13.6 Encounter for screening for cardiovascular disorders
CPT/HCPCS: 36415; 80053; 80061; 82043; 82306; 82570; 83036; 84153; 84443; 85025; 86780; 86803; 87340; 87389; 87491; 87591

== ENCOUNTER 2025-03-15 09:49 | Outpatient (REF) | payer OTHER, SELFPAY ==
--- NOTE | ~2025-03-15 | US_ITS ---
CLINICAL HISTORY: R39.12 - Poor urinary stream US bladder with color Doppler Comparison: None Findings: Prostate measures 4.4 x 4.2 x 3.8 cm Urinary bladder is unremarkable. Prevoid volume 303.0 mL. Postvoid volume 74.9 mL. Ureteral jets are visualized bilaterally Impression: 1. Elevated postvoid residual 2. Prostate volume 37.4 mL This document has been electronically signed by: Darin Albarado MD on 03/16/2025 10:26:22
== END 2025-03-15 09:50 | disposition home or self-care (01) ==
LOC: HO.HMGCX 09:49
PROVIDERS: PCP Student in an Organized Health Care Education/Training Program; Visit Provider Urology
DX: N32.0 Bladder-neck obstruction (principal); R39.12 Poor urinary stream
CPT/HCPCS: 76857

== ENCOUNTER → 2025-03-15 09:55 | Outpatient (BNV) | payer OTHER, SELFPAY | PROVIDERS: PCP Student in an Organized Health Care Education/Training Program; Visit Provider Radiology Diagnostic Radiology | DX: R39.12 Poor urinary stream (principal) | CPT/HCPCS: 76857 ==

== ENCOUNTER 2025-03-16 10:37 | Outpatient (AMB) | payer OTHER, SELFPAY ==
--- NOTE | 2025-03-16 10:40 | A.OFFVIS_ITS ---
Intake Visit Reasons: 6m/US/PSA/PVR Intake Note: Patient is present for 6M/PVR Urology Medication:FINASTERIDE Antibiotic Allergy:NONE Blood Thinner:NONE Labs done : 01/30/25 PSA 3.37 Imaging : 03/16/25 Bladder Ultrasound TODAY'S PVR:32ML'S Pneumatic Deicer Inspector Required: Yes Accompanied by: Self / Same As Patient Allergies latex Adverse Reaction (Verified 03/16/25 10:42) Rash HPI Comments Details: Hoang is a pleasant male. He is a patient of Dr. Ford. He seen for the following urologic conditions - lower urinary tract symptoms - osteopenia Urdu translation provided in office by qualified medical staff assistant Six-month follow-up PVR 30 cc PSA has dropped Bladder ultrasound 40 g prostate, complete bladder emptying Lower urinary tract symptoms Progressive weakness of stream Knee replacement in September 2021 with urinary retention Current medications include finasteride and terazosin 10 mg PSA 06/30 1.0, 10/29 2.7, 05/31 4.3, 03/02 3.2 Recent DEXA scan 01/30 osteopenia Start on daily Cialis 5 mg for osteopenia. Should boost testosterone. 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 Mother CVD (cardiovascular disease) Social History Household Members: Spouse and Family Housing: House Are you a primary healthcare science specialist to a significant other at home: No Do you presently have visiting nurse or other home services: No Alcohol intake: never Patient Tobacco Use Status: Never used Tobacco Review of Systems Const Denies chills and Denies fever(s) Card Reports no additional complaints and Denies syncope Resp Denies cough GI Denies abdominal pain and Denies heartburn Reports as per HPI and Denies change in libido Neuro Denies syncope Psych Denies change in libido Endo Denies change in libido Physical Exam Const General: cooperative, healthy appearing, comfortable and no acute distress Orientation/consciousness: patient oriented x3 HEENT Face and sinus: Yes normal facial exam Mouth: moist mucous membranes Neck Neck: Yes normal visual inspection, Yes full ROM and Yes trachea midline Chest Chest palpation & inspection: normal inspection of the chest Resp Effort & Inspection: normal respiratory effort, able to speak in complete sentences and no respiratory distress GI Inspection: Yes normal to inspection Back/Spine/Pelvis Cervical Spine: normal cervical lordosis Thoracic/Lumbar Spine: thoracic and lumbar spine normal to inspection Skin General skin exam: no rashes or lesions noted Neuro General: patient oriented x3, gait normal, tone normal and moves all extremities Extrem General: Yes normal to inspection and Yes capillary refill normal Assessment & Plan Assessment & Plan (1) Osteopenia: Code(s): M85.80 - Other specified disorders of bone density and structure, unspecified site Category: Medical (2) Bladder instability: Code(s): N32.89 - Other specified disorders of bladder Category: Medical (3) Bladder outlet obstruction: Code(s): N32.0 - Bladder-neck obstruction Category: Medical Plan Check testosterone Start tadalafil Refill finasteride Orders: Orders Testosterone, Free/Total Today M85.80 - Other specified disorders of bone density and structure, unspecified site Testosterone, Free/Total 5 Months M85.80 - Other specified disorders of bone density and structure, unspecified site Medications: New tadalafil 5 mg PO DAILY 90 tabs 1RF 90 days N32.89 - Other specified disorders of bladder Refilled finasteride 5 mg PO DAILY 90 tabs 3RF 90 days R33.9 - Retention of urine, unspecified Patient Instructions: This note is constructed using voice recognition software. While every effort has been made to ensure accuracy mechanical engineering specialist errors may have been included. Imaging studies, laboratory and physical exam results were discussed and reviewed in detail. No major barriers to patient understanding were identified. An opportunity to ask questions regarding the treatment plan was provided. All questions were answered. The patient expressed understanding and agreement with the above treatment plan. The patient is aware they should contact our office by phone for worsening of their current condition or the appearance of new urologic symptoms. Compliance is encouraged with any medications and followup testing that is ordered. It is a privilege to participate in the urologic care of your patient. If you have any questions or concerns regarding treatment for the above conditions, or other urologic issues, please do not hesitate to contact me. The office telephone contact is [phone]. Sincerely, Dr Jens Abdullahi MD, [facility] - Urology Compassionate Specialist Care for the Genitourinary System Coding Level of Care Code Est Pt Level 4 (78802) Complex EM visit Add On G2211 Diagnoses Osteopenia M85.80 Bladder instability N32.89 Bladder outlet obstruction N32.0
== END 2025-03-16 11:43 | disposition home or self-care (01) ==
LOC: HO.HUSH 10:37
PROVIDERS: PCP Student in an Organized Health Care Education/Training Program; Visit Provider Urology
DX: M85.80 Other specified disorders of bone density and structure, unspecified site (principal); N32.89 Other specified disorders of bladder; N32.0 Bladder-neck obstruction; R33.9 Retention of urine, unspecified
CPT/HCPCS: 99214; G2211

== ENCOUNTER → 2025-03-16 10:37 | Outpatient (BNVA) | payer OTHER, SELFPAY | PROVIDERS: PCP Student in an Organized Health Care Education/Training Program; Visit Provider Urology | DX: N32.89 Other specified disorders of bladder (principal); N32.0 Bladder-neck obstruction; M85.80 Other specified disorders of bone density and structure, unspecified site | CPT/HCPCS: 51798; 81003; 99212 ==

== ENCOUNTER 2025-03-16 11:45 | Outpatient (REF) | payer OTHER, SELFPAY ==
[2025-03-21 18:58] LABS: Testosterone, Free 65.5 pg/mL (35.0-155.0)
== END 2025-03-16 11:46 | disposition home or self-care (01) ==
LOC: HO.10HDL 11:45
PROVIDERS: Visit Provider Urology
DX: M85.80 Other specified disorders of bone density and structure, unspecified site (principal)
CPT/HCPCS: 36415; 84402; 84403

== ENCOUNTER 2025-05-16 18:08 | Outpatient (REF) | payer OTHER, SELFPAY ==
--- OUTSIDE RECORDS SUMMARY | 2025-05-16 10:45 | XMS_ITS | Encounter Summary ---
Author Organization [employer] Address [address] [place] [address] Care Team Providers Care It Trainee Name Role Phone Yecenia Hopper MD Primary Care Pro vider Reason for Referral * (Routine) - Authorized Specialty Diagnoses / Procedures Referred By Soham t Referred To Contact Diagnoses Encounter for immunization Procedures FLU VACCINE TRIVALENT HIGH DOSE [phone] (Fluzone) 65 yrs + Yecenia Hopper MD [address] [place] [phone] Phone: tel: fax: Referral ID Status Reason Start Date Expiration Date V isits Requested Visits Authorized [id number] Authorized 05/16/2025 05/16/2026 1 1 Encounter Details Date Type Department Care Team (Latest Contact Info) Description 05/16/2025 10:45 AM EST Office Visit [facility] [address] [place] [address] [phone] Yecenia Hopper MD [address] [place] [address] [phone] Essential hypertension (Primary Dx); Encounter for immunization; Epigastric pain; Eosinophilia, unspecified type; Hyperlipidemia, unspecified hyperlipidemia type; Overweight (BMI 25.0-29.9); Routine adult health maintenance; Dermatitis; Gastritis without bleeding, unspecified chronicity, unspecified gastritis type; Neuropathy Social History Tobacco Use Types Packs/Day Years [...] AM EDT documented as of this encounter Last Filed Vital Signs Vital Sign Reading Time Taken Comments Blood Pressure 134/62 05/16/2025 11:12 AM EST Pulse 72 05/16/2025 11:12 AM EST Temperature 36.2 C (97.1 F) 05/16/2025 11:12 AM EST Respiratory Rate 20 05/16/2025 11:12 AM EST Oxygen Saturation 98% 05/16/2025 11:12 AM EST Inhaled Oxygen Concentration - - Weight 69.7 kg (153 lb 9.6 oz) 05/16/2025 11:12 AM EST Height 160 cm (5' 3 ) 05/16/2025 11:12 AM EST Body Mass Index 27.21 05/16/2025 11:12 AM EST documented in this encounter Progress Notes * Yecenia Morales MD - 05/16/2025 10:45 AM EST Subjective Patient ID: Hoang Acosta is a 69 y.o. male who presents for Annual exam HPI 69 y o M with PMHx of HTN, HLD intermittent asthma, BPH,preDM-controlled,BPPV. Hx of H pylori s/p tx x2 w neg IMANI, Sebopsoriasis Comes for Annual exam Reports having epigastric burning pain as well associated w GERD ,no dysphagia no odynophagia, no RUQ , no weight loss , epigastric pain dies not radiate Had EGD years ago w history of H pylori s/treatment ------- Assessment and Plan: Health care maintenance -Annual exam done 05/2025-labs done 02/2025 - PSA 02/2025 3.37- wnl -Colonoscopy: 2017 ( from GI note): negative per pt told to repeat in 10 years -vaccines: s/p COVID 19 last booster 03/2024, p13x1,p20x1,tdap 2021--Tdap 02/17/2024 per pt pt ( no records available),Flu vaccine 03/2024 ,shingrix x2,3,Hep B not immune -refuse vaccine ,RSV 10/2024. Advised for COVID 19 but refuse today . Flu vaccine today in office HTN BP controlled now -Echo 08/2021 normal only mild fibrocalcific aortic valve ,EF 65 to 70% -EKG at hospital 01/2023: NSR ,HR 54X',QTC 373 -seen w public service representative 09/21/2024 for dry eyes -03/03/2025 Microalb neg -losartan 25 mg daily -amlodipine 2.5 mg BID -tried before w 5 mg dose daily but pt had dizziness so BID dosing working well -pt to bring home BP readings--- all wnl HLD -03/03/2025 LDL 86, total ch 147 <----total ch 246, LDL 170 ,trig 138, HDL 49 , AST 39 ASCVD 13.8% ( indication for statins and consider ASA) -discussed ASA use but decided w pt that for age and well controlled lipids to avoid med to avoid risk of bleeding. -continue atorvastatin 40 mg daily -will repeat fasting lipids and chem 6 mo 08/2025 PreDM -03/03/2025 hb1AC 5.8 -repeat in 6 mo 08/2025 BPH Elevated PSA-resolved -01/30/2025 PSA 3.37<---PSA 4.27 -saw urologist in 09/2024 kept on finasteride only given w both agents was having dizziness -saw urologist ,check testosterone and sent taldalafil 5 mg and continues finsteride , stoppde flomax Elevated Alk phosphatase -03/03/2025 Alk phos 186,vit D wnl -01/30/2025 Alk phos 159 ,Vit D wnl -05/2024 Alk Phos 164<--145<--164<-- 169<---142, LFTs wnl -03/2023 Alkaline phosphatase bone specific is 37( elevated ) while GGT is normal , vit D is wnl Pt may have Paget dx of the bone with above labs and this may explain his continuously reported mild pressure sensation in BURT -Nuclear bone scan 06/2023; Abnormal appearance of the bone scan showing features most consistent with SuperScan . The appearance is nonspecific, consistent with metabolic bone disease including hyperparathyroidism,osteomalacia, renal osteodystrophy as well as Paget's disease. Radiographic correlation as well as biochemical/correlation with lab values as appropriate is recommended. Specific note is made of diffuse linear increased tracer avidity at L5 which may represent superimposed focal pathologic lesion. Radiographic correlation is recommended. -lumbar XR 06/2023 : Posterior stabilization and intervertebral disc hardware at L4-L5. No hardware fracture. No significant perihardware lucency to suggest loosening or infection. Normal vertebral body alignment. The lumbar lordosis is maintained. No loss of vertebral body or intervertebral disc height. No concerning lytic or blastic osseous lesion. No abnormal soft tissue calcification. -DEXA scan 01/2024 Osteopenia based on the lowest T-score value of -2.2 in the lumbar spine applyingWorld Health Organization criteria. 10-YEAR FRACTURE RISK PREDICTION, FRAX: Major osteoporotic fracture (clinical spine, forearm, hip or shoulder) 4.4%. Hip fracture 1.0%. -Apt w Hot Iron Worker -Domenic Mendoza 06/28/2025-referred to mechanical systems designer to [facility] for bone dx and r/o Paget's dx,labs done w sp had PTH was normal thought from osteomalacia vs vit D def Sebopsoriasis -saw edermatologist 01/2025 Sebopsoriasis Stable Still itching and has inflammation on exam Will increase Clobex shampoo to daily Increase [place]-smooth oil to 3 times weekly at night RTC in 2-3 months -has apt w Dermatology here in 07/14/2024 -- pt states will need to change [facility] derm for insurance -ptwill check w his unsurance where he can see sp and will let us know for referral Skin rash at previous apt Reports on and off skin rash for the past 3 years ,present back of shoulder, back and area of hips , denies any other part of skin not palms nor soles , its itchy , appears once a month at least. Last for 4 -5 days ,states using cream that is using for scalp ( steroids ) is not helping but thinks using ketoconazole cream that has at home helps . States rash start as tiny papular lesions ,denies vesicles and then becomes erythematous. Denies using any new skin product , nor change in diet , denies associated food allergies. Currently rash is faint in his lower back only -prescribed triamcinolone w cerave -if no better advised pt to f w salesperson sewing machines -possible eczema vs psoriasis Cardiac murmur mild 2nd right intercostal space 3/6 cardiac murmur to eval valves --asymptomatic -TTE 11/2023 :Essentially normal study with mild fibrocalcific aortic valve changes, ejection fraction is between 60-65%. Depression PHQ 5 STEPHEN 4, no SI -f w tx and psychiatrist -pt not complaint w meds -advised to take meds consistently and to talk w psychiatrist Overweight -BMI 27<--- 25<---27 Gained 7 pounds in last monhts -Advised pt to improve diet and exercise,discussed healthy life style -discussed clothes ironer referral --refuse Eosinophilia -03/03/2025 AEC 700 -CBC reorder today Neuropathy -takes gabapentin TID for tingling in feet -will evaluation symptoms at next apt and will consider EMG/NCS at next apt Hx of H pylori -EGD 2017 (from GI's note) : chronic gastritis -on famotidine 20 mg HS PRN --if more freq to referrback to GI -s/p tx x2 -reports hx of neg IMANI per pt -03/2023 H pylori neg UBT off PPIs Gastritis/GERD Reports having epigastric burning pain as well associated w GERD ,no dysphagia no odynophagia, no RUQ , no weight loss , epigastric pain dies not radiate Had EGD years ago w history of H pylori s/treatment Symptoms consistent w Gastritis/GERD w no current alarming symptoms Pt only taking famotidine HS -life style changes advised,weight loss, decrease heavy meals at night, HOB elevation -UBT for h pylori done in office today-will inform pt results -continue famotidine 20 mg HS and start pantopralzoe 40 in am prior to breakfast -if no better next apt will refer to GI Review of Systems Constitutional: Negative. HENT: Negative. Eyes: Negative. Respiratory: Negative. Cardiovascular: Negative. Gastrointestinal: Positive for abdominal pain. Epigastric abdominal pain and GERD Genitourinary: Negative. Musculoskeletal: Negative. Neurological: Negative. Psychiatric/Behavioral: Negative. Objective BP 134/62 (BP Location: Left arm, Patient Position: Sitting, BP Cuff Size: Adult) Pulse 72 Temp97.1 ??F (36.2 ??C) (Temporal) Resp 20 Ht 5' 3 (1.6 m) Wt 153 lb 9.6 oz (69.7 kg) SpO2 98% BMI 27.21 kg/m?? Physical Exam Constitutional: Appearance: Normal appearance. HENT: Head: Normocephalic and atraumatic. Right Ear: Tympanic membrane and ear canal normal. Left Ear: Tympanic membrane and ear canal normal. Mouth/Throat: Pharynx: Oropharynx is clear. Eyes: Extraocular Movements: Extraocular movements intact. Pupils: Pupils are equal, round, and reactive to light. Cardiovascular: Rate and Rhythm: Normal rate and regular rhythm. Heart sounds: No murmur heard. Pulmonary: Effort: Pulmonary effort is normal. Breath sounds: Normal breath sounds. Abdominal: Palpations: Abdomen is soft. Musculoskeletal: General: Normal range of motion. Cervical back: Normal range of motion and neck supple. Skin: General: Skin is warm. Neurological: General: No focal deficit present. Mental Status: He is alert and oriented to person, place, and time. Psychiatric: Mood and Affect: Mood normal. Behavior: Behavior normal. Assessment/Plan Problem List Items Addressed This Visit Hyperlipidemia Essential hypertension - Primary Relevant Orders CBC auto differential Comprehensive Metabolic Panel Dermatitis Routine adult health maintenance Overweight (BMI 25.0-29.9) Eosinophilia Gastritis Relevant Medications pantoprazole (ProtoNix) 40 MG EC tablet Neuropathy Other Visit Diagnoses Encounter for immunization Relevant Orders FLU VACCINE TRIVALENT HIGH DOSE [phone] (Fluzone) 65 yrs + (Completed) Epigastric pain Relevant Medications pantoprazole (ProtoNix) 40 MG EC tablet Other Relevant Orders Helicobacter pylori, Urea Breath Test documented in this encounter Plan of Treatment Scheduled Orders Name Type Priority Associated Diagnoses Orde r Schedule CBC auto differential Lab Routine Essential hypertension Expected: 05/16/2025 (Approximate), Expires: 05/16/2026 Comprehensive Metabolic Panel Lab Routine Essential hypertension Expected: 05/16/2025 (Approximate), Expires: 05/16/2026 Helicobacter pylori, Urea Breath Test Lab Routine Epigastric pain Expected: 05/16/2025 (Approximate), Expires: 05/16/2026 documented as of this encounter Visit Diagnoses Diagnosis Essential hypertension- Primary Unspecified essential hypertension Encounter for immunization Epigastric pain Abdominal pain, epigastric Eosinophilia, unspecified type Hyperlipidemia, unspecified hyperlipidemia type Overweight (BMI 25.0-29.9) Overweight Routine adult health maintenance Dermatitis Contact dermatitis and other eczema, due to unspecified cause Gastritis without bleeding, unspecified chronicity, unspecified gastritis type Neuropathy Mononeuritis of unspecified site documented in this encounter Additional Health Concerns Assessment Noted Time PHQ-9 Depression Total Score: 0 02/03/20 25 10:44 AM EDT documented as of this encounter Care Teams It Trainee Relationship Specialty Start Date End Date Yecenia Hopper MD [address] [place] [phone] PCP - General Internal Medicine 02/17/23 documented as of this encounter
--- OUTSIDE RECORDS SUMMARY | 2025-05-16 23:09 | XMS_ITS | Clinical Summary ---
Author Organization [employer] Address [address] [facility] [address] [place] [address] Care Team Providers Care Proposal Writer Name Role Phone Yecenia Hopper MD Primary [...] mL 07/07/19 24 Active Fluocinolone Acetonide Scalp ([place] /FS Scalp) 0.01 % oilIndications :Sebopsoriasis Apply at night with head cover 2 times weekly 118.28 mL 2 10/02/19 24 Active fexofenadine (Monisha) 180 MG tabletIndicati ons:Urticaria Take 1 tablet (180 mg) by mouth Once per day. 30 tablet 2 03/22/20 24 Active traZODone (Desyrel) 50 MG tablet Take 50 mg by mouth if needed at bedtime. 09/03/19 25 Active famotidine (Pepcid) 20 MG tablet TAKE 1 TABLET(20 MG) BY MOUTH AT BEDTIME NEEDED FOR HEARTBURN 90 tablet 01/17/20 25 Active meclizine (Antivert) 25 MG tablet TAKE 1 TABLET BY MOUTH IN THE MORNING, AT NOON, AND AT BEDTIME IF NEEDED FOR DIZZINESS. 30 tablet 2 01/17/20 25 Active atorvastatin (Lipitor) 40 MG tabletIndicati ons:Hypertensi on, unspecified type Take 1 tablet (40 mg) by mouth Once per day. 90 tablet 1 02/03/20 25 Active losartan (Cozaar) 25 MG tablet Take 1 tablet (25 mg) by mouth Once per day. 90 tablet 02/21/20 25 026 Active gabapentin (Neurontin) 600 MG tabletIndicati ons:Chronic bilateral low back pain without sciatica TAKE 1 TABLET BY MOUTH THREE TIMES DAILY 90 tablet 2 03/25/20 25 Active amLODIPine (Norvasc) 2.5 MG tablet TAKE 1 TABLET(2.5 MG) BY MOUTH TWICE DAILY 60 tablet 2 04/27/20 25 Active Clobetasol Propionate 0.05 % shampooIndicat ions:Sebopsori asis APPLY TOPICALLY DAILY 118 mL 1 05/01/20 25 Active albuterol 108 (90 Base) MCG/ACT inhaler Inhale 2 puffs every 6 (six) hours if needed for wheezing. 18 g 1 05/10/20 25 026 Active Spacer/Aero-Ho lding Chambers (OptiChamber Deepa) misc 1 each every 4 (four) hours if needed (asthma). 1 each 05/10/20 25 Active pantoprazole (ProtoNix) 40 MG EC tablet Take 1 tablet (40 mg) by mouth before breakfast. Do not crush, chew, or split. 90 tablet 05/16/20 25 026 Active albuterol 108 (90 Base) MCG/ACT inhaler Inhale 2 puffs every 6 (six) hours if needed for wheezing. 18 g 1 11/05/19 24 025 Discontinued(Re order (will not trigger notification to Pharmacy)) ketoconazole (NIZOral) 2 % creamIndicatio ns:Sebopsorias is Apply topically 2 times daily. 60 g 1 06/10/19 25 025 Discontinued(Ot her) Clobetasol Propionate 0.05 % shampooIndicat ions:Sebopsori asis Daily 118 mL 1 01/14/20 25 025 Discontinued amLODIPine (Norvasc) 2.5 MG tablet Take 1 tablet (2.5 mg) by mouth 2 times daily. 60 tablet 2 02/03/20 25 025 Discontinued baclofen (Lioresal) 10 MG tablet Take 1 tablet (10 mg) by mouth 3 times daily. 90 tablet 02/14/20 25 025 Discontinued(Ot her) Active Problems Problem Noted Date Diagnosed Date Eosinophilia 05/16/2025 Gastritis 05/16/2025 Neuropathy 05/16/2025 Overweight (BMI 25.0-29.9) 09/27/2024 Skin rash 09/27/2024 [...] well Dental home: more than a year, [facility] dental, advised patient to make appointment [...] Encounters Date Type Department Care Team Description 05/16/2025 10:45 AM EST Office Visit [facility] [address] [place], [place] [address] [address] Yecenia Hopper MD Essential hypertension (Primary Dx); Encounter for immunization; Epigastric pain; Eosinophilia, unspecified type; Hyperlipidemia, unspecified hyperlipidemia type; Overweight (BMI 25.0-29.9); Routine adult health maintenance; Dermatitis; Gastritis without bleeding, unspecified chronicity, unspecified gastritis type; Neuropathy 05/16/2025 Travel 05/15/2025 Telephone [facility] [address] [place] [phone] Yecenia Hopper MD chart prep 05/10/2025 3:00 PM EST Office Visit [facility] [address] [place] [phone] Chandan Mitchell MD Acute cough (Primary Dx) 05/10/2025 Travel 05/08/2025 Patient Outreach [facility] [address] [place] [phone] Yecenia Hopper MD Pre-visit Planning (SDOH screening was completed on 09/19/2024) 04/29/2025 Refill [facility] [address] [place] [phone] Chris Pena MD 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/27/2025 Refill [facility] [address] [place] [phone] Yecenia Hopper MD 04/14/2025 9:30 AM EST Telemedicine [facility] [address] [place] [phone] Zeinab Dunn RN Essential hypertension 04/14/2025 Travel 03/28/2025 Refill [facility] [address] [place] [address] Olga Santillan FNP 03/24/2025 Refill [facility] [address] [place] [address] Yecenia Pompa MD Chronic bilateral low back pain without sciatica 03/24/[address] [address] Yecenia Hopper MD telephone call 03/15/2025 Orders Only [facility] External Provider, [facility] 03/14/[address] [address] Yecenia Hopper MD Lab Orders 03/13/2025 1:30 PM EDT Clinical Support [address] [address] Thuy Ocasio RN Essential hypertension 03/13/2025 Travel 03/03/2025 Orders Only [address] [address] Yecenia Hopper MD Eosinophilia, unspecified type (Primary Dx) 03/03/2025 Results Follow-Up [address] [address] Yecenia Hopper MD CBC auto differential, Comprehensive Metabolic Panel, Hemoglobin A1c, Additional followed-up results: 7 03/03/2025 Orders Only GENERIC EXTERNAL DATA DEPARTMENT Provider, Generic External Data 03/01/2025 Orders Only GENERIC EXTERNAL DATA DEPARTMENT Provider, Generic External Data 02/20/2025 9:30 AM EDT Clinical Support [address] [address] Zeinab Dunn RN Essential hypertension 02/20/2025 Orders Only [address] [address] Yecenia Hopper MD 02/20/2025 Travel from Last 3 Months Immunizations Immunization Administration Dates Next Due Influenza High-dose Quadriva lent Preservative Free 02/19/2023,03/05/2022,03/28/2021 Influenza, High Dose Seasona l, Preservative Free 05/16/2025,03/22/2024 Influenza, IIV3, injectable 08/24/2016 Influenza, Unspecified 03/08/2024 Pfizer Covid-19 Vaccine 12+ 03/22/2024,0 07/07/2023,11/05/2021,06/06,03/07/2021,07/25/2020 Pfizer Covid-19 Vaccine 12+ chuy-sucrose (Gil Cap) 11/05/2021,09/04/2020 Pneumococcal Conjugate PCV 13 09/18/2021 Pneumococcal Conjugate PCV 20 10/31/2022 Pneumococcal Polysaccharide PPSV23 08/24/2016 RSV Bivalent 10/10/2024 Tdap 02/17/2024,09/18/2021 Zoster, Recombinant 03/05/2022,12/24/2021 Family History Medical History Relation Name Comments DM2 Brother DM2 Father Breast cancer Sister Glaucoma Neg Hx Relation Name Status Comments Brother Father Sister Social History Tobacco Use Types Packs/Day Years [...] Mass Index 27.21 05/16/2025 11:12 AM EST Plan of Treatment Health Maintenance Due Date Last Done Comments CT Colonography 1955 FIT DNA/Cologuard 1955 FIT 1955 FOBT 1955 Sigmoidoscopy 1955 COVID-19 Vaccine ( season) 2025 03/22/2024, 07/07/2023, 04/22/2022, Additional history exists SDOH Screening 09/19/2025 09/19/2024 Alcohol/Substance Use Screening 09/27/2025 09/27/2024 Depression Screening 02/02/2026 02/02/2025, 02/03/20 25 Diabetes: Hemoglobin A1C 03/03/2026 025, 05/10/2024, 04/06/2023, Additional history exists Tobacco Screening 05/16/2026 05/16/2025 Colonoscopy 06/08/2026 06/08/2016 Colorectal Cancer Screening 06/08/2026 Lipid Panel 03/03/2030 03/03/2025, 08/2 10/2024, 05/10/2024, Additional history exists DTaP/Tdap/Td Vaccines (3 - Td or Tdap) 02/16/2034 02/17/2024, 09/18/2021 Zoster Vaccines Completed 03/05/2022, 12/24/2021 Pneumococcal Vaccine: 50+ Years Completed 10/31/2022, 09/18/2021, 08/24/2016 RSV Patients and Patients Aged 60 years or older Completed 10/10/2024 Hepatitis C Screening Completed 03/03/2025 , 05/10/2024, 04/06/2023, Additional history exists Influenza Vaccine Completed 05/16/2025, , 03/08/2024, Additional history exists HIB Vaccines Aged Out [...] Procedure Name Priority Date/Time Associated Diagnosis Comments US BLADDER Routine 03/16/2025 10:26 AM EDT PSA, TOTAL Routine 03/03/2025 9:41 AM EDT VITAMIN D,25-OH,TOTAL,IA Routine 03/03/2025 9:41 AM EDT Health care maintenance TSH W/REFLEX TO FT4 Routine 03/03/2025 9 :41 AM EDT Health care maintenance SYPHILIS SCREEN Routine 03/03/2025 9:41 AM EDT Health care maintenance LIPID PANEL, STANDARD Routine 03/03/2025 9:41 AM EDT Health care maintenance HIV 1/2 ANTIGEN/ANTIBODY, FOURTH GENERATION W/RFL Routine 03/03/2025 9:41 AM EDT Health care maintenance HEPATITIS C AB W/REFL TO HCV RNA, QN, PCR Routine 03/03/2025 9:41 AM EDT Health care maintenance HEPATITIS B SURFACE ANTIGEN, EIA Routine 03/03/2025 9:41 AM EDT Health care maintenance HEMOGLOBIN A1C Routine 03/03/2025 9:41 AM EDT Health care maintenance COMPREHENSIVE METABOLIC PANEL Routine 03/03/2025 9:41 AM EDT Health care maintenance CBC WITH AUTO DIFFERENTIAL Routine 03/03/2025 9:41 AM EDT Health care maintenance ALBUMIN, RANDOM URINE W/CREATININE Routine 03/03/2025 9:29 AM EDT Health care maintenance CHLAMYDIA/TRICHOMONAS/ NEISSERIA GONORRHOEAE, PCR, URINE Routine 03/03/2025 9:29 AM EDT Health care maintenance COVID-19 ID NOW (HUGHES) Routine 03/01/2025 9:58 AM EDT INFLUENZA A B2 ID NOW (HUGHES) Routine 03/01/2025 9:58 AM EDT STREP A NUCLEIC ACID Routine 03/01/2025 9:58 AM EDT HM COLONOSCOPY Routine 06/08/2016 from Last 3 Months or Most Recently Relevant to Health Maintenance Results * US BLADDER (03/16/2025 10:26 AM EDT) Anatomical Region Laterality Modality Abdomen Ultrasound 03/16/2025 10:2 6 AM EDT Narrative 03/16/2025 10:27 AM EDT [facility] [address] [place] [address] [place] [phone] Ultrasound Report Signed Patient: Hoang Pereira MR# : [id number] : 1955 Acct:[id number] Age/Sex: 69 / M ADM Date: 03/15/25 Loc: HO.HMGCX Attending Dr: Jens Abdullahi MD Ordering Physician: Jens Abdullahi MD Date of Service: 03/15/25 Procedure(s): US bladder Accession Number(s): [id number] cc: Jens Abdullahi MD; Yecenia Hopper MD Reason for Exam: R39.12 - Poor urinary stream CLINICAL HISTORY: R39.12 - Poor urinary stream US bladder with color Doppler Comparison: None Findings: Prostate measures 4.4 x 4.2 x 3.8 cm Urinary bladder is unremarkable. Prevoid volume 303.0 mL. Postvoid volume 74.9 mL. Ureteral jets are visualized bilaterally Impression: 1. Elevated postvoid residual 2. Prostate volume 37.4 mL This document has been electronically signed by: Darin Albarado MD on 03/16/2025 10:26:22 Dictated By: Darin Albarado MD Signed By: <Electronically signed by Darin Albarado MD in OV> 03/16/25 1027 DD/ 1026 TD/TT: 03/16/25 1026 Rehabilitation Services Director: Procedure Note Donotuseinterpreter, Image - 03/16/2025 [facility] Adult [facility] [address] [place] [address] [place] [address] Ultrasound Report Signed Patient: Hoang Pereira MMR# : [id number] : 1955cct:[id number] Age/Sex: 69 / MADM Date: 03/15/25 Loc: HO.HMGCX Attending Dr: Jens Abdullahi MD Ordering Physician: Jens Abdullahi MD Date of Service: 03/15/25 Procedure(s): US bladder Accession Number(s): [id number] cc: Jens Abdullahi MD; Yecenia Hopper MD Reason for Exam: R39.12 - Poor urinary stream CLINICAL HISTORY: R39.12 - Poor urinary stream US bladder with color Doppler Comparison: None Findings: Prostate measures 4.4 x 4.2 x 3.8 cm Urinary bladder is unremarkable. Prevoid volume 303.0 mL. Postvoid volume 74.9 mL. Ureteral jets are visualized bilaterally Impression: 1. Elevated postvoid residual 2. Prostate volume 37.4 mL This document has been electronically signed by: Darin Albarado MD on 03/16/2025 10:26:22 Dictated By: Darin Albarado MD Signed By: <Electronically signed by Darin Albarado MD in OV> 03/16/25 1027 DD/ 1026 TD/TT: 03/16/25 1026 Rehabilitation Services Director: [facility] External Provider IMG US PROCEDURES Final Result * Syphilis Screen (03/03/2025 9:41 AM EDT) Syphilis Screen Nonreactive Nonreactive [facility] Blood 03/03/2025 9:41 AM EDT 03/03/2025 9:41 AM EDT Yecenia Morales MD LAB BLOOD ORDERAB LES Final Result [facility] [address] [place] [phone] * Vitamin D, 25-Hydroxy, Total, Immunoassay (03/03/2025 9:41 AM EDT) Vitamin D 25-OH Total 40.5 >30 ng/mL [facility] Comment: Health Based Reference Values*< 20 ng/mL Pamtllomg02-25 ng/mL Insufficient> 30 ng/mL Sufficient*Sarita ELIZABETH. N [...] LC-MS/MS. Blood Venous blood specimen / Unknown 03/03/2025 9:41 AM EDT 03/03/2025 9:41 AM EDT us Yecenia Morales MD LAB BLOOD ORDERAB LES Final Result Performing Organization Address City/[facility]/ZIP Co de Phone Number [facility] [address] [place] [address] [phone] * TSH with Reflex to Free T4 (03/03/2025 9:41 AM EDT) TSH reflex Free T4 0.64 0.32 - 4.0 uIU/mL [facility] Blood 03/03/2025 9:41 AM EDT 03/03/2025 9:41 AM EDT us Yecenia Morales MD LAB BLOOD ORDERAB LES Final Result Performing Organization Address City/[facility]/ZIP Co de Phone Number [facility] [address] [place] [address] [phone] * (ABNORMAL) CBC auto differential (03/03/2025 9:41 AM EDT) White Blood Count 6.8 4.8 - 10.8 X10*3/uL [facility] Red Blood Count 5.38 4.60 - 5.80 X10*6/uL [facility] Hemoglobin 16.2 14.0 - 18.0 g/dl [facility] Hematocrit 49.3 42.0 - 52.0 % [facility] Mean Corpuscular Volume 91.6 80.0 - 98.0 fL [facility] Mean Corpuscular Hemoglobin 30.1 27.0 - 33.0 pg [facility] Mean Corpuscular HGB Conc 32.9 31.0 - 36.0 g/dl [facility] Red Cell Distribution Width 13.2 11.0 - 16.0 % [facility] Platelet Count 255 160 - 400 X10*3/uL [facility] Mean Platelet Volume 9.2(L) 9.4 - 12.4 fL [facility] Neutrophils Percent Auto 44.7(L) 45 - 73 % [facility] Imm Gran Pct Auto 0.4 0.0 - 0.4 % [facility] Lymphocytes Percent Auto 30.1 20 - 40 % [facility] Monocytes Percent Auto 13.2(H) 2 - 11 % [facility] Eosinophils Percent Auto 10.4(H) 0 - 4 % [facility] Basophils Percent Auto 1.2 0 - 2 % [facility] NRBC Pct Auto 0.0 0.0 - 0.2 /100WBC [facility] Neutrophils Absolute Auto 3.0 2.0 - 8.3 x10*3/uL [facility] Imm Gran Abs Auto 0.03 0.00 - 0.03 X10*3/uL [facility] Lymphocytes Absolute Auto 2.1 1.2 - 4.9 X10*3/uL [facility] Monocytes Absolute Auto 0.9 0.1 - 1.2 X10*3/uL [facility] Eosinophils Absolute Auto 0.7(H) 0.0 - 0.4 X10*3/uL [facility] Basophils Absolute Auto 0.1 0.0 - 0.2 X10*3/uL [facility] NRBC Abs Auto 0.000 0.0 - 0.012 X10*3/uL [facility] Blood Venous blood specimen / Unknown 03/03/2025 9:41 AM EDT 03/03/2025 9:41 AM EDT us Yecenia Morales MD LAB BLOOD ORDERAB LES Final Result [facility] [address] [place] [phone] * Hepatitis C Antibody with Reflex to HCV, RNA, Quantitative, Real-Time PCR (03/03/2025 9:41 AM EDT) Hepatitis C Antibody Nonreactive Nonreactive [facility] Comment:Antibodies to HCV no t detected; does not exclude early acuteHCV infection. Blood Venous blood specimen / Unknown 03/03/2025 9:41 AM EDT 03/03/2025 9:41 AM EDT us Yecenia Morales MD LAB BLOOD ORDERAB LES Final Result [facility] [address] [place] [phone] * Hepatitis B surface antigen, EIA (03/03/2025 9:41 AM EDT) Hepatitis B Surface Ag Negative Negative [facility] Blood Venous blood specimen / Unknown 03/03/2025 9:41 AM EDT 03/03/2025 9:41 AM EDT us Yecenia Morales MD LAB BLOOD ORDERAB LES Final Result Performing Organization Address City/[facility] Care [facility]/ZIP Co de Phone Number [facility] [address] [place] [phone] * HIV-1/2 Antigen and Antibodies, Fourth Generation, with Reflexes (03/03/2025 9:41 AM EDT) HIV AB/AG Nonreactive Nonreactive [facility] Comment:HIV-1 p24 Ag and/or HIV-1/HIV-2 Ab not detected.A test result that is nonreactive does not exclude thepossibility of exposure to or infection with HIV-1 and/orHIV-2. Nonreactive results in this assay for individualswith prior exposure to HIV-1 and/or HIV-2 may be due toantigen and antibody levels that are below the limit ofdetection of this assay.The [employer] HIV Ag/Ab Combo assay result andsupplemental assay results should be interpreted inconjunction with the patient's clinical presentation,history and other laboratory results. If the results areinconsistent with clinical evidence, additional testing issuggested to confirm the result. Blood Venous blood specimen / Unknown 03/03/2025 9:41 AM EDT 03/03/2025 9:41 AM EDT us Yecenia Morales MD LAB BLOOD ORDERAB LES Final Result [facility] [address] [place] [address] [phone] * PSA,Total (03/03/2025 9:41 AM EDT) [facility] Prostate Specific Antigen 3.21 <0.05 - 4.0 ng/mL [facility] Comment:PSA methodology: Abb ramila Gallowayty i ChemiluminescentMicroparticle Immunoassay (CMIA) 03/03/2025 9:41 AM EDT 03/03/2025 9:41 AM EDT us Generic External Data Provider LAB BLOOD ORDERAB LES Final Result Performing Organization Address [facility]/ZIP Co de Phone Number [facility] [address] [place] [phone] * Hemoglobin A1c (03/03/2025 9:41 AM EDT) [facility] Hemoglobin A1c 5.8 <6.0 % [facility] Comment:Hemoglobin A1C Refer ence Range Adults: 4.8 - 6.0 % Non diabetic: < 6.0 % Goal: < 7.0 %Additional Action Suggested: > 8.0 %Note: Hemoglobin A1c results are invalid for patients with abnormal amounts of HbF. Blood transfusions may impact the HbA1c concentration in the patient sample. Estimated Average Glucose 120 mg/dL [facility] Comment:eAG = Estimated ave rage glucose which is %A1C expressed asaverage glucose, using the formula of the [id number] Glucose study (ADAG), Diabetes Care, Vol.31,#8,Jan. 2007 Blood Venous blood specimen / Unknown 03/03/2025 9:41 AM EDT 03/03/2025 9:41 AM EDT us Yecenia Morales MD LAB BLOOD ORDERAB LES Final Result [facility] [address] [place] [phone] * Lipid Panel, Standard (03/03/2025 9:41 AM EDT) Triglycerides 84 <150 mg/dL [facility] Comment:Desirable Triglyceri de: less than 150 mg/dLBorderline High Triglyceride 150-199 mg/dLHigh Triglyceride: 200-499 mg/dLVery High Triglyceride: greater than or equal to 5OO mg/dL Cholesterol 147 <200 mg/dL [facility] Comment:Desirable Cholestero l: less than 200 mg/dLBorderline High Cholesterol: 200-239 mg/dLHigh Cholesterol: greater than 239 mg/dL LDL Cholesterol Calculated 86 <100 mg/dL [facility] Comment:Desirable LDL: less than 100 mg/dLNear Optimal/Above Optimal LDL: 110- 129 mg/dLBorderline High LDL: 130-159 mg/dLHigh LDL: 160-189 mg/dLVery High LDL: greater than or equal to 190 mg/dL HDL Cholesterol 45 >40 mg/dL [facility] Comment:Desirable HDL: great er than 40 mg/dL Note: This HDL assay may give artificially low results in patients with liver disease. Blood Venous blood specimen / Unknown 03/03/2025 9:41 AM EDT 03/03/2025 9:41 AM EDT Yecenia Morales MD LAB BLOOD ORDERAB LES Final Result [facility] [address] [place] [phone] * (ABNORMAL) Comprehensive Metabolic Panel (03/03/2025 9:41 AM EDT) Sodium 142 135 - 145 mmol/L [facility] Potassium 4.5 3.3 - 5.1 mmol/L [facility] Chloride 107 96 - 108 mmol/L [facility] Carbon Dioxide 29 22 - 29 mmol/L [facility] Anion Gap 11(L) 12 - 20 [facility] Urea Nitrogen (BUN) 12 9 - 16 mg/dL [facility] Creatinine, Serum 1.13 0.5 - 1.4 mg/dL [facility] Estimated Glomerular Filt Rate >60 [facility] Comment:Chronic Kidney Disea se: Estimated GFR < 60 mL/min/1.01s0Gyofrj Kidney Disease: Estimated GFR < 15 mL/min/1.73m2 Glucose 94 60 - 115 mg/dL [facility] Calcium 9.5 8.4 - 10.2 mg/dL [facility] Bilirubin, Total 0.7 0.0 - 1.0 mg/dL [facility] Aspartate Amino Transferase 31 5 - 37 U/L [facility] Alanine Aminotransferase 39 0 - 40 U/L [facility] Total Protein 7.7 6.5 - 8.0 g/dL [facility] Albumin Level 4.9 3.5 - 5.0 g/dL [facility] Alkaline Phosphatase 186(H) 39 - 117 U/L [facility] Blood Venous blood specimen / Unknown 03/03/2025 9:41 AM EDT 03/03/2025 9:41 AM EDT us Yecenia Morales MD LAB BLOOD ORDERAB LES Final Result [facility] [address] [place] [phone] * Chlamydia/Trichomonas/Neisseria gonorrhoeae, PCR, Urine (03/03/2025 9:29 AM EDT) CT PCR, Urine NOT DETECTED Not Detect. [facility] Comment:A not detected test result does not exclude the possibilityof infection because test results can be affected byimproper specimen collection, concurrent antibiotic therapy,or the number of organisms in the specimen which may bebelow the sensitivity of the test. As with many diagnostictests, results from the Xpert CT/NG assay should beinterpreted in conjunction with other laboratory andclinical data available to the clinician.The Xpert CT/NG assay should not be used for the evaluationof suspected sexual abuse or for other medico-legalindications. Additional testing is recommended in anycircumstance when false positive or false negative resultscould lead to adverse medical, social or psychologicalconsequences. NG PCR, Urine NOT DETECTED Not Detect. [facility] Comment:A not detected test result does not exclude the possibilityof infection because test results can be affected byimproper specimen collection, concurrent antibiotic therapy,or the number of organisms in the specimen which may bebelow the sensitivity of the test. As with many diagnostictests, results from the Xpert CT/NG assay should beinterpreted in conjunction with other laboratory andclinical data available to the clinician.The Xpert CT/NG assay should not be used for the evaluationof suspected sexual abuse or for other medico-legalindications. Additional testing is recommended in anycircumstance when false positive or false negative resultscould lead to adverse medical, social or psychologicalconsequences. Urine (Urine, Random) 03/03/2025 9:29 AM EDT 03/03/2025 10:56 AM EDT Yecenia Morales MD LAB URINE ORDERAB LES Final Result [facility] [address] [place] [phone] * Albumin, Random Urine W/Creatinine (03/03/2025 9:29 AM EDT) Creatinine, Urine 98.09 mg/dL [facility] Microalbumin Urine 12.0 mg/L [facility] Microalbum Creatinine Ratio Ur 12.2 <30 ug/mg cr [facility] Comment:Albumin/Creatinine R atio Reference Ranges: Normal: < 30 ug/mg creatinine Microalbuminuria: 30 - 300 ug/mg creatinineClinical Albuminuria: > 300 ug/mg creatinine Urine (Urine, Random) 03/03/2025 9:29 AM EDT 03/03/2025 10:56 AM EDT us Yecenia Morales MD LAB URINE ORDERAB LES Final Result Performing Organization Address [facility] Co de Phone Number [facility] [address] [place] [phone] * Influenza A B2 ID NOW ([facility]) (03/01/2025 9:58 AM EDT) IDNOW SERIAL# [id number] [facility] Influenza A Negative Negative [facility] Influenza B2 Negative Negative [facility] Influenza A B2 Note See Note [facility] Comment:The [facility] ID NOW [...] GENERAL ORDERABLES Final Result Performing Organization Address [facility] Co de Phone Number [facility] [address] [place] [phone] * Strep A Nucleic Acid (03/01/2025 9:58 AM EDT) IDNOW SERIAL# [id number] [facility] Strep A Nucleic Acid Negative Negative [facility] Comment:All test results mus [...] GENERAL ORDERABLES Final Result Performing Organization Address [facility] Co de Phone Number [facility] [address] [place] [phone] * COVID-19 ID NOW (HUGHES) (03/01/2025 9:58 AM EDT) IDNOW SERIAL# [id number] [facility] COVID-19 TEST Negative Negative [facility] COVID-19 NOTE See Note [facility] Comment: Results are for the identification of SARS-CoV2 RNA. TheSARS-CoV2 RNA is generally detectable in respiratory samplesduring the acute phase of infection. Positive results areindicative of the presence of SARS-CoV-2 RNA; clinicalcorrelation with patient history and other diagnosticinformation is necessary to determine patient infectionstatus. Positive results do not rule out bacterial infectionor co- infection with other viruses.[facility] facilities [facility] are required to report all [...] use by authorized laboratories.Testing performed on the Compound Time ID NOW utilizing NAAT. 03/01/2025 9:58 AM EDT 03/01/2025 10:01 AM EDT us Generic External Data Provider LAB MOLECULAR JACOB GNOSTICS ORDERABLES Final Result [facility] [address] [place] [phone] * Colonoscopy (06/08/2016) Colonoscopy Normal Normal Comment:Repeat in 10 Years 06/08/2016 Historical Provider HEALTH MAINTENANCE Final Result from Last 3 Months or Most Recently Relevant to Health Maintenance Insurance [facility] [facility] [employer] Care Teams Proposal Writer Relationship Specialty Start Date End Date Yecenia Hopper MD [address] [place] [phone] PCP - General Internal Medicine 02/17/23
--- OUTSIDE RECORDS SUMMARY | 2025-05-16 23:09 | XMS_ITS | Encounter Summary ---
Author Organization [employer] Address [address] [facility] 7t [place] [address] Care Team Providers Care Mirror Framer Name Role Phone Yecenia Hopper MD Primary Care Pro vider Encounter Details Date Type Department Care Team (Late st Contact Info) Description 04/21/2023 Abstract [facility] MEDICINE [address] [place] [address] Yecenia Hopper MD [address] [place] [address] Social History Tobacco Use Types Packs/Day Years [...] as of this encounter Plan of Treatment Not on file documented as of this encounter Visit Diagnoses Not on filedocumented in this encounter Additional Health Concerns Assessment Noted Time PHQ-9 Depression Total Score: 0 04/06/20 9:26 AM EDT documented as of this encounter Care Teams Mirror Framer Relationship Specialty Start Date End Date Yecenia Hopper MD [address] [place] [phone] PCP - General Internal Medicine 02/17/23 documented as of this encounter
--- OUTSIDE RECORDS SUMMARY | 2025-05-16 23:09 | XMS_ITS | Clinical Summary ---
Author Organization [facility] Address [address] [facility] [address] [place] [address] Phone Care Team Providers Care Biometric Screener Name Role Phone Lisy Ford RN Primary Care Provider [phone] Allergies Active Allergy Reactions Criticality Noted Date [...] this topic Insurance [employer] Medicare Medicaid [place] [facility] Medicare Medicaid [place] Care Teams Biometric Screener Relationship Specialty Start Date End Date Lisy Ford RN [address] [place] [phone] PCP - General Family Medicine 10/15/21
--- OUTSIDE RECORDS SUMMARY | 2025-05-16 23:10 | XMS_ITS | Encounter Summary ---
Author Organization [employer] Address [address] [facility] 7t [place] [address] Care Team Providers Care Vice President Sales And Marketing Name Role Phone Yecenia Hopper MD Primary Care Pro vider Reason for Visit * Reason Comments Med Refill Encounter Details Date Type Department Care Team ([facility] st Contact Info) Description 12/17/2023 Refill [facility] MEDICINE [address] [place], [place] [phone] Dora Plaza MD 230 [place] [address] Cervical paraspinal muscle spasm; Arthritis of both [...] documented as of this encounter Care Teams Vice President Sales And Marketing Relationship Specialty Start Date End Date Yecenia Hopper MD [address] [place] [phone] PCP - General Internal Medicine 02/17/23 documented as of this encounter
--- OUTSIDE RECORDS SUMMARY | 2025-05-16 23:10 | XMS_ITS | Encounter Summary ---
Author Organization [employer] Address [address] [facility] 7t [place] [address] Care Team Providers Care Supervisor Assembly And Packing Name Role Phone Yecenia Hopper MD Primary Care Pro vider Encounter Details Date Type Department Care Team (Late st Contact Info) Description 05/17/2024 Orders Only [facility] MEDICINE [address] [place], [place] [phone] Damari Gonsalez MD 230 [place] [address] Social History Tobacco Use Types Packs/Day Years [...] documented as of this encounter Care Teams Supervisor Assembly And Packing Relationship Specialty Start Date End Date Yecenia Hopper MD [address] [place] [phone] PCP - General Internal Medicine 02/17/23 documented as of this encounter
--- OUTSIDE RECORDS SUMMARY | 2025-05-16 23:10 | XMS_ITS | Clinical Summary ---
Author Organization [facility] Address [address] [facility] [address] [place] [address] Phone Care Team Providers Care Lpn Private Duty Name Role Phone Yecenia Hopper MD Primary [...] 10:10 AM EST Office Visit [facility] [address] [place] [phone] Domenic Mendoza DO [address] [place] [phone] [email or web address] Health Maintenance Due Date Last Done Comments DEPRESSION SCREENING 1967 HEPATITIS C SCREENING 12/17/1973 COLOGUARD 12/17/2000 COLONOSCOPY 12/17/2000 COLORECTAL CANCER SCREENING 12/17/2000 FIT TEST 12/17/2000 FOBT 12/17/2000 SIGMOIDOSCOPY 12/17/2000 VIRTUAL COLONOSCOPY 12/17/2000 PNEUMOCOCCAL VACCINES (50+ years) (1 of 1 - PCV) 12/17/2005 ZOSTER VACCINES (1 of 2) 12/17/2005 INFLUENZA VACCINE (#1) 2025 COVID-19 VACCINE (1 - 2024-2 6 season) 2025 SCREENING FOR DIABETES 04/04/2027 04/04/2024 [...] file Insurance MEDICARE PART A & B [facility] MEDICARE REPLACEMENT MEDICARE PART A & B MEDICARE REPLACEMENT MEDICARE PART A & B MEDICARE REPLACEMENT MEDICARE PART A & B Member Subscriber Plan / Payer (Ef fective 2020-) Name:Hoang Pereira Member ID:[id number] Relation to Subscriber:Self Name:Hoang Pereira Subscriber ID:[id number] Payer ID:[id number] Group ID:Not on file Type:Medicare Address: [employer] [address] MEDICARE REPLACEMENT MEDICARE PART A & B [facility] MEDICARE REPLACEMENT MEDICARE PART A & B [facility] MEDICARE REPLACEMENT Care Teams Lpn Private Duty Relationship Specialty Start Date End Date Yecenia Hopper MD [address] [place] [phone] PCP - General Internal Medicine 07/31/23 Additional Source Comments The information contained in this document represents components of the legal health record. It is not the complete legal health record.[facility]
--- OUTSIDE RECORDS SUMMARY | 2025-05-16 23:10 | XMS_ITS | Encounter Summary ---
Author Organization [employer] Address [address] [facility] 7 [place] [address] Care Team Providers Care Belly Roller Name Role Phone Yecenia Hopper MD Primary Care Pro vider Reason for Visit * Reason Onset Date Comments chart prep 05/15/2025 Encounter Details Date Type Department Care Team ([facility] st Contact Info) Description 05/15/2025 Telephone [facility] MEDICINE [address] [place] [phone] Yecenia Hopper MD 230 [place] [address] chart prep Social History Tobacco Use Types Packs/Day Years [...] encounter Miscellaneous Notes * Telephone Encounter - Aaliyah Rivas [place] - 05/15/2025 10:14 AM EST ..Chart Prep Labs: not applicable Images: not applicable Vaccines due: Covid Due and Flu Due Referrals: urology 09/14/25 Screenings: Not Applicable Overdue care gaps: None documented in this encounter Plan of Treatment Not on file documented as of this encounter Visit Diagnoses Not on filedocumented in this encounter Additional Health Concerns Assessment Noted Time PHQ-9 Depression Total Score: 0 02/03/20 25 10:44 AM EDT documented as of this encounter Care Teams Belly Roller Relationship Specialty Start Date End Date Yecenia Hopper MD [address] [place] [phone] PCP - General Internal Medicine 02/17/23 documented as of this encounter
--- OUTSIDE RECORDS SUMMARY | 2025-05-16 23:10 | XMS_ITS | Encounter Summary ---
Author Organization [employer] Address [address] [facility] 7t [place] [address] Care Team Providers Care Account Maintenance Representative Name Role Phone Yecenia Hopper MD Primary Care Pro vider Reason for Visit * Reason Comments Med Refill Encounter Details Date Type Department Care Team ([facility] st Contact Info) Description 10/11/2023 Refill [facility]EDS [address] [place] [address] Yecenia Hopper MD 230 [place] [address] Chronic bilateral low back pain without sciatica [...] documented as of this encounter Care Teams Account Maintenance Representative Relationship Specialty Start Date End Date Yecenia Hopper MD [address] [place] [phone] PCP - General Internal Medicine 02/17/23 documented as of this encounter
--- OUTSIDE RECORDS SUMMARY | 2025-05-16 23:10 | XMS_ITS | Encounter Summary ---
Author Organization [employer] Address [address] [facility] 7t [place] [address] Care Team Providers Care Associate Professor Of Literature Name Role Phone Yecenia Hopper MD Primary Care Pro vider Reason for Visit * Reason Comments Med Refill Encounter Details Date Type Department Care Team ([facility] st Contact Info) Description 03/28/2025 Refill [facility] 230 [place], [place] [phone] Olga Santillan FNP [address] [place] [address] Social History Tobacco Use Types Packs/Day Years [...] encounter Miscellaneous Notes * Telephone Encounter - Thuy Ocasio RN - 03/31/2025 10:31 [place] [phone], pt thinks the refill request was automatic from the pharmacy, he denies requesting them, denies having neck pain. No further discussion. * Telephone Encounter - Yecenia Morales MD - 03/29/2025 9:53 PM EDT Not rec for chronic use documented in this encounter Plan of Treatment Not on file documented as of this encounter Visit Diagnoses Not on filedocumented in this encounter Additional Health Concerns Assessment Noted Time PHQ-9 Depression Total Score: 0 02/03/20 25 10:44 AM EDT documented as of this encounter Care Teams Associate Professor Of Literature Relationship Specialty Start Date End Date Yecenia Hopper MD [address] [place] [phone] PCP - General Internal Medicine 02/17/23 documented as of this encounter
--- OUTSIDE RECORDS SUMMARY | 2025-05-16 23:10 | XMS_ITS | Encounter Summary ---
Author Organization [facility] Address [address] [facility] [address] [place] [phone] Phone Care Team Providers Care Front Clerk Name Role Phone Yecenia Hopper MD Primary Care Pro vider Encounter Details Date Type Department Care Team (Late st Contact Info) Description 07/07/2024 Ancillary Orders [address] [address] System, Provider Not In, [facility] [address] [address] Social History Tobacco Use Types Packs/Day Years [...] AM EST Office Visit [facility] [address] [place] [address] Domenic Mendoza DO [address] [place] [address] [email or web address] documented as of this encounter Results * [...] on filedocumented in this encounter Care Teams Front Clerk Relationship Specialty Start Date End Date Yecenia Hopper MD [address] [place] [phone] PCP - General Internal Medicine 07/31/23 documented as of this encounter Additional Source Comments The information contained in this document represents components of the legal health record. It is not the complete legal health record.[facility]
--- OUTSIDE RECORDS SUMMARY | 2025-05-16 23:10 | XMS_ITS | Encounter Summary ---
Author Organization [employer] Address [address] [facility] 7t [place] [address] Care Team Providers Care School Fundraising Director Name Role Phone Yecenia Hopper MD Primary Care Pro vider Reason for Visit * Reason Comments Med Refill Encounter Details Date Type Department Care Team ([facility] st Contact Info) Description 12/31/2024 Refill [facility] MEDICINE 230 [place], [place] [phone] Yecenia Pompa MD [address] [place] [address] Chronic bilateral low back pain without sciatica [...] documented as of this encounter Care Teams School Fundraising Director Relationship Specialty Start Date End Date Yecenia Hopper MD [address] [place] [phone] PCP - General Internal Medicine 02/17/23 documented as of this encounter
--- OUTSIDE RECORDS SUMMARY | 2025-05-16 23:10 | XMS_ITS | Encounter Summary ---
Author Organization [employer] Address [address] [facility] [address] 7t [place] [address] Care Team Providers Care Business Systems Administrator Name Role Phone Yecenia Hopper MD Primary Care Pro vider Encounter Details Date Type Department Care Team (Latest Contact Info) Description 05/16/2025 Travel Social History Tobacco Use Types Packs/Day Years [...] documented as of this encounter Care Teams Business Systems Administrator Relationship Specialty Start Date End Date Yecenia Hopper MD [address] [place] [phone] PCP - General Internal Medicine 02/17/23 documented as of this encounter
--- OUTSIDE RECORDS SUMMARY | 2025-05-16 23:10 | XMS_ITS | Encounter Summary ---
Author Organization [employer] Address [address] [place] [address] 7t [place] [address] Care Team Providers Care Wool Batting Worker Name Role Phone Jj Robbins Primary Care Provider Unavail able Yecenia Hopper MD Primary Care Pro vider Reason for Visit * Reason Comments Med Refill Encounter Details Date Type Department Care Team (Late st Contact Info) Description 09/10/2022 Refill [facility] MED & PEDS [address] [place] [address] Jj Robbins AGNP Chronic bilateral low back [...] sciatica documented in this encounter Care Teams Wool Batting Worker Relationship Specialty Start Date End Date Jj Robbins AGNP PCP - General Family Medicine 03/28/22 02/16/23 Yecenia Hopper MD [address] [place] [phone] PCP - General Internal Medicine 02/17/23 documented as of this encounter
--- OUTSIDE RECORDS SUMMARY | 2025-05-16 23:10 | XMS_ITS | Encounter Summary ---
Author Organization [employer] Address [address] [place] [address] 7 [place] [address] Care Team Providers Care Sample Grader Name Role Phone Jj Robbins Primary Care Provider Unavail able Yecenia Hopper MD Primary Care Pro vider Encounter Details Date Type Department Care Team (Latest Contact Info) Description 04/17/2021 Abstract [facility], Provider, DDS Social History Tobacco [...] on filedocumented in this encounter Care Teams Sample Grader Relationship Specialty Start Date End Date Jj Robbins AGNP PCP - General Family Medicine 03/28/22 02/16/23 Yecenia Hopper MD [address] [place] [phone] PCP - General Internal Medicine 02/17/23 documented as of this encounter
== END 2025-05-16 18:09 | disposition home or self-care (01) ==
LOC: HO.HHCLNP 18:08
PROVIDERS: Visit Provider Student in an Organized Health Care Education/Training Program
DX: R10.13 Epigastric pain (principal)
CPT/HCPCS: 83013